=== PATIENT | male | born 1950 | race Caucasian/White ===

== ENCOUNTER → 2019-01-05 | Outpatient (CLI) | payer MEDICARE, OTHER ==
--- NOTE | 2019-01-05 09:17 | ECHOF ---
Referral Reason:I10 hypertention R60.9 bilateral leg edema MEASUREMENTS -------- HEIGHT: 165.1 cm WEIGHT: 90.7 kg BP: IVSd: 1.8 cm (0.6 - 1.1) LVIDd: 4.6 cm (3.9 - 5.3) LVPWd: 1.4 cm (0.6 - 1.1) IVSs: 2.1 cm LVIDs: 2.5 cm LVPWs: 2.1 cm LAESV Index (A-L): 27.77 ml/m Ao Diam: 3.3 cm (2.0 - 3.7) AV Cusp: 2.4 cm (1.5 - 2.6) LA Diam: 2.9 cm (2.7 - 3.8) MV EXCURSION: 19.783 mm (> 18.000) MV EF SLOPE: 125 mm/s (70 - 150) EPSS: 1.2 cm MV E Jesse: 0.88 m/s MV DecT: 193 ms MV A Jesse: 1.06 m/s MV E/A Ratio: 0.84 AR PHT: 261 ms RAP: 5.00 mmHg RVSP: 9.41 mmHg FINDINGS -------- Sinus rhythm. This was a technically good study. The left ventricular size is normal. There is moderate concentric left ventricular hypertrophy. O verall left ventricular systolic function is normal with, an EF between 55 - 60 %. The right ventricle is normal in size. Normal LA size by volume 22+/-6 ml/m2. The right atrial size is normal. There is mild aortic regurgitation. The mitral valve leaflets are mildly thickened. Mild mitral annular calcification present. There is trace mitral regurgitation. Trace tricuspid regurgitation present. The right ventricular systolic pressure, as measured by Dopp ler, is 9.41mmHg. There is no pulmonic regurgitation present. The aortic root size is normal. Normal inferior vena cava with normal inspiratory collapse consistent with estimated right atrial pre ssure of 5 mmHg. There is no pericardial effusion. CONCLUSIONS -------- 1. Sinus rhythm. 2. This was a technically good study. 3. The left ventricular size is normal. 4. There is moderate concentric left ventricular hypertrophy. 5. Overall left ventricular systolic function is normal with, an EF between 55 - 60 %. 6. The right ventricle is normal in size. 7. Normal LA size by volume 22+/-6 ml/m2. 8. The right atrial size is normal. 9. There is mild aortic regurgitation. 10. The mitral valve leaflets are mildly thickened. 11. Mild mitral annular calcification present. 12. There is trace mitral regurgitation. 13. Trace tricuspid regurgitation present. 14. The right ventricular systolic pressure, as measured by Doppler, is 9.41mmHg. 15. There is no pulmonic regurgitation present. 16. The aortic root size is normal. 17. Normal inferior vena cava with normal inspiratory collapse consistent with estimated right atrial pressure of 5 mmHg. 18. There is no pericardial effusion. WOOD MOLDER: Lisa Nicholas RDCS
== END | disposition home or self-care (01) ==
LOC: RADECHMAIN 08:21
PROVIDERS: ATTEND Internal Medicine
DX: I08.0 Rheumatic disorders of both mitral and aortic valves (principal); I10 Essential (primary) hypertension
CPT/HCPCS: 93306

== ENCOUNTER → 2019-03-26 | Outpatient (CLI) | payer MEDICARE, OTHER ==
[2019-03-26 12:20] LABS: HCT 45.2 % (39.0-53.0); HGB 15.1 gm/dL (13.0-17.5); MCHC 33.3 g/dL (31.0-37.0); MCV 93.1 fL (80.0-100.0); Platelet Count 362 k/uL (150-450); RBC 4.85 m/uL (4.30-5.90); RDW 15.3 % (11.5-15.5); WBC 8.1 k/uL (3.8-10.6)
[2019-03-26 12:30] LABS: African American GFR (CKD) >90 (>60 ml/min/1.73 sqM); Anion Gap 7 mmol/L; Blood Urea Nitrogen 19 mg/dL (9-20); Carbon Dioxide 32 mmol/L (22-30); Chloride 102 mmol/L (98-107); Potassium 3.5 mmol/L (3.5-5.1); Sodium 141 mmol/L (137-145)
== END | disposition home or self-care (01) ==
LOC: LABPAT 11:38
PROVIDERS: ATTEND Internal Medicine Interventional Cardiology
DX: Z01.812 Encounter for preprocedural laboratory examination (principal)
CPT/HCPCS: 36415; 80051; 82565; 84520; 85027

== ENCOUNTER 2019-04-14 10:03 | Day surgery (SDC) | payer MEDICARE, OTHER ==
[2019-04-08 17:28] VITALS: BMI 37.0
[~2019-04-14 10:03] MED LIST: ASPIRIN 325 MG TAB PO ONE; SODIUM CHLORIDE 0.9% 1,000 ML in EMPTY BAG 1 BAG IV ONE
[2019-04-14] MEDS ORDERED: ALBUTEROL NEBULIZED 1.25 MG/3 ML INHALATION SCH (10:45)
[2019-04-14] MEDS: ALBUTEROL NEBULIZED 2.5 MG/3 ML INHALATION SCH ×2 (10:56→18:50)
[2019-04-14 10:59] VITALS: RESP 18
[2019-04-14] MEDS ORDERED: MIDAZOLAM (PF) 2 MG/2 ML VIAL IVP ONE (13:57)
[2019-04-14] MEDS ORDERED: LIDOCAINE 1% INJ 10MG/ML (20 ML MDV) SQ ONE (14:02)
[2019-04-14] MEDS: VERAPAMIL SYRINGE (5 MG/10 ML) INTRAARTER ONE ×2 (14:03→14:11)
[2019-04-14] MEDS ORDERED: HEPARIN SODIUM 1,000 UN/ML (10ML VL) IV ONE (14:04)
[2019-04-14] MEDS ORDERED: IOPAMIDOL-370 100ML BTL INJ ONE (14:11)
[2019-04-14] MEDS ORDERED: RX INFO: IV CONTRAST WAS GIVEN 1 EACH MISC MISCELLANE PRN (14:25)
[2019-04-14] MEDS ORDERED: SODIUM CHLORIDE 0.9% 1,000 ML IV SCH (14:30)
--- NOTE | 2019-04-14 15:11 | CC ---
CARDIAC CATHETERIZATION REPORT DATE OF SERVICE: 04/14/2019 PERFORMING PHYSICIAN: Wes Cha MD, Waste Water Operator. PROCEDURE PERFORMED: 1. Selective right and left coronary angiogram. 2. Left heart catheterization. INDICATION: This is a pleasant 68-year-old gentleman with history of hypertension and dyslipidemia, who was experiencing shortness of breath with exertion and underwent a myocardial perfusion imaging stress test and that revealed evidence of transient ischemic dilatation of the left ventricle. Because of that, heart catheterization was advised. APPROACH: Right radial artery. COMPLICATION: None. LEVEL OF SEDATION: Moderate with a sedation length of 13 minutes. PROCEDURE DESCRIPTION: After obtaining an informed consent, the patient was brought to the cardiac orthodontic laboratory technician. The right radial artery was cannulated using micropuncture technique, the micropuncture wire passed easily, then I placed a 6-Upper Sorbian sheath in the right radial artery. After that, I did give the patient 2 mg of verapamil IA and 10,000 units of heparin IV. Subsequently, I did selective right and left coronary angiogram using JR4 and JL3.5 catheters. Left heart catheterization was performed using pigtail catheter. The procedure was completed without any complication. SELECTIVE CORONARY ANGIOGRAM: 1. The right coronary artery is a large caliber vessel. It is a dominant vessel and appeared to be angiographically normal. It distally bifurcates into PDA and PLV branches, both appeared to be angiographically normal. 2. The left main is angiographically normal, it bifurcates into left circumflex. The left circumflex is a large caliber vessel. It is a nondominant vessel with the proximal circumflex is angiographically normal and gives rise into a large OM branch which seems to be angiographically normal. The mid circumflex is normal and gives rise into the second OM branch, appeared to be angiographically normal and the circumflex continued after that as a medium caliber vessel in the AV groove. 3. The ramus intermedius is a small to medium caliber vessel with mild luminal irregularity. 4. The LAD, the proximal LAD appeared to be angiographically normal. It gives rise into a high take-off of the diagonal branch which is a large caliber vessel and appears to be angiographically normal. The mid LAD appeared to be normal and gives rise into second diagonal branch which seems to be angiographically normal. The LAD distally appeared to be normal. The LAD in the midportion after the second diagonal branch has a lesion appeared to be in the range of 10%-20% only. HEMODYNAMICS: The left ventricular end-diastolic pressure was about 8 mmHg without significant gradient across the aortic valve. CONCLUSION: 1. 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 2. Normal left ventricular end-diastolic pressure. POSTPROCEDURE MANAGEMENT: Medical treatment and follow up with the patient. PEPE / MARKN: [id number] /
--- NOTE | 2019-04-14 15:11 | LTR ---
DATE OF SERVICE: April 14, 2019. RE: Naresh Pantera Dear Dr. Santiago; Mr. Pantera Infante underwent today a heart catheterization and that revealed mild nonobstructive disease involving the left anterior descending artery. I did recommend maximized medical treatment, aggressive cholesterol control, and followup. I want to thank you for allowing me to participate in his care and please do not hesitate to call with any question or concern. Sincerely, MD PEPE Hewitt / MARKN: [id number] /
[2019-04-14 19:34] VITALS: BP 150/77; PULSE 74; TEMP 98.1
== END 2019-04-14 19:55 | disposition home or self-care (01) ==
LOC: CATHCVL 10:03 → 1SOBS 16:07 → CATHCVL 19:55
PROVIDERS: ATTEND Internal Medicine Interventional Cardiology
DX: R94.39 Abnormal result of other cardiovascular function study (principal); R06.02 Shortness of breath; I10 Essential (primary) hypertension; E78.5 Hyperlipidemia, unspecified; E78.00 Pure hypercholesterolemia, unspecified
CPT/HCPCS: 93458; 94640 ×2; C1769 ×3; C1894; J2001; J1644; Q9967; J2250

== ENCOUNTER → 2019-11-13 | Outpatient (CLI) | payer MEDICARE, OTHER ==
--- NOTE | 2019-11-13 09:39 | MR ---
EXAMINATION TYPE: MR cervical spine wo con DATE OF EXAM ORDERED: 11/13/2019 9:16 AM HISTORY: M54.2. TECHNOLOGIST HISTORY AT TIME OF EXAM: Neck pain, weakness in extremities COMPARISON: . TECHNIQUE: Multiplanar, multiecho imaging of the cervical spine was obtained without contrast on a 1 .5 elton magnet. FINDINGS: Vertebral body height and alignment are maintained. Atlantoaxial relationships are normal. There is a normal craniocervical junction. Cord signal is normal. At C2-C3, there is mild left-sided intervertebral foraminal narrowing. There is no significant compre ssive discopathy. There is mild hypertrophic change in the left facet. The uncovertebral joints are u nremarkable At C3-C4, there is mild hypertrophic changes in the left facet. At C4-C5, there is mild disc space loss. There is bilateral intervertebral foraminal narrowing, worse on the left than the right. There is a left paracentral disc protrusion deforming the thecal sac wit h cord contact and mild posterior displacement. There is left-sided facet arthropathy and there is mi ld vertebral joint disease. At C5-C6, there is bilateral intervertebral foraminal narrowing, worse on the right than the left. Th ere is no significant compressive discopathy. There is mild facet and uncovertebral joint disease. At C6-C7, there is mild disc space loss. There is bilateral intervertebral foraminal narrowing, worse on the right than left. There is mild, diffuse disc displacement. There is mild facet and uncoverteb ral joint disease. At C7-T1, no definite abnormality is seen. IMPRESSION: 1. DIFFUSE DEGENERATIVE DISC DISEASE AND FACET ARTHROPATHY. 2. MULTILEVEL INTERVERTEBRAL FORAMINAL NARROWING. 3. LEFT PARACENTRAL DISC PROTRUSION, C4-5, WHICH MAY BE IMPINGING UPON THE EXITING NERVE ROOT ON THE LEFT
== END | disposition home or self-care (01) ==
LOC: RADMRIMAIN 08:40
PROVIDERS: ATTEND Internal Medicine
DX: M48.02 Spinal stenosis, cervical region (principal); M50.221 Other cervical disc displacement at C4-C5 level; M50.30 Other cervical disc degeneration, unspecified cervical region; M46.92 Unspecified inflammatory spondylopathy, cervical region
CPT/HCPCS: 72141

== ENCOUNTER 2021-03-24 14:01 | Inpatient (IN) | payer MEDICARE, OTHER ==
--- NOTE | 2021-03-24 14:27 | ED ---
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 He was brought in by EMS because of the symptoms. He denies any chest pain or shortness breath this time he does have a history of COPD he states when he does flush the toilet that the black stool looks more red. No other complaints or modifying factors at this time MD Complaint: abdominal pain, other - Related Data Home Medications Medication Instructions Recorded Confirmed Albuterol Nebulized [Ventolin 2.5 mg INHALATION RT-BID 03/17/19 03/24/21 Nebulized] Aspirin [Adult Low Dose Aspirin EC] 81 mg PO DAILY 03/17/19 03/24/21 Budesonide/Formoterol Fumarate 2 puff INHALATION RT-BID 03/17/19 03/24/21 [Symbicort 160-4.5 Mcg Inhaler] Calcium Carbonate [Calcium] 600 mg PO DAILY 03/17/19 03/24/21 Cholecalciferol [Vitamin D3 (25 1,000 unit PO DAILY 03/17/19 03/24/21 Mcg = 1000 Iu)] Multivitamins, Thera [Multivitamin 1 tab PO DAILY 03/17/19 03/24/21 (formulary)] [place]-3 Fatty Acids/Fish Oil [Fish 1 cap PO DAILY 03/17/19 03/24/21 Oil 1,000 mg Softgel] hydroCHLOROthiazide [Hydrodiuril] 12.5 mg PO DAILY 03/17/19 03/24/21 Atorvastatin [Lipitor] 20 mg PO HS 03/24/21 03/24/21 Meloxicam [Mobic] 15 mg PO DAILY PRN 03/24/21 03/24/21 amLODIPine [Norvasc] 10 mg PO DAILY 03/24/21 03/24/21 calcium polycarbophiL [Fibercon] 625 mg PO DAILY 03/24/21 03/24/21 Allergies Allergy/AdvReac Type Severity Reaction Status Date / Time No Known Allergies Allergy Verified 03/24/21 14:56 Review of Systems ROS Statement: Those systems with pertinent positive or pertinent negative responses have been documented in the HPI. ROS Other: All systems not noted in ROS Statement are negative. Past Medical History Past Medical History: Cancer, COPD, Hyperlipidemia, Hypertension Additional Past Medical History / Comment(s): prostate cancer History of Any Multi-Drug Resistant Organisms: None Reported Past Surgical History: Heart Catheterization, Hernia Repair Additional Past Surgical History / Comment(s): radiation on prostate, spleenectomy, unguinal blateral Past Anesthesia/Blood Transfusion Reactions: No Reported Reaction Past Psychological History: No Psychological Hx Reported Past Alcohol Use History: Occasional Past Drug Use History: Marijuana - Past Family History Father Family Medical History: Diabetes Mellitus General Exam - General Exam Comments Initial Comments: This is a well-developed well-nourished awake alert oriented 3 male Limitations: no limitations General appearance: alert, in no apparent distress Head exam: Present: atraumatic, normocephalic, normal inspection Eye exam: Present: PERRL, EOMI, other (Pale conjunctiva). Absent: scleral icterus, conjunctival injection, periorbital swelling ENT exam: Present: normal exam, mucous membranes moist Neck exam: Present: normal inspection. Absent: tenderness, meningismus, lymphadenopathy Respiratory exam: Present: normal lung sounds bilaterally. Absent: respiratory distress, wheezes, rales, rhonchi, stridor Cardiovascular Exam: Present: normal rhythm, tachycardia, normal heart sounds. Absent: systolic murmur, diastolic murmur, rubs, gallop, clicks GI/Abdominal exam: Present: soft, normal bowel sounds, other (Well-healed left- sided surgical scar). Absent: distended, tenderness, guarding, rebound, rigid Rectal exam: Present: heme (+) stool, black stool, other (No definitive masses palpated) exam: Present: normal inspection Extremities exam: Present: normal inspection, full ROM, normal capillary refill. Absent: tenderness, pedal edema, joint swelling, calf tenderness Back exam: Present: normal inspection Neurological exam: Present: alert, oriented X3, CN II-XII intact Psychiatric exam: Present: normal affect, normal mood Skin exam: Present: warm, dry, intact, pallor. Absent: rash Course Vital Signs 03/24/21 03/24/21 03/24/21 14:04 14:05 14:30 Temperature 99.5 F Pulse Rate 118 H 114 H 114 H Respiratory 22 18 22 Rate Blood Pressure 134/107 117/79 117/79 O2 Sat by Pulse 93 L 98 96 Oximetry 03/24/21 15:00 Temperature Pulse Rate 112 H Respiratory 20 Rate Blood Pressure 134/87 O2 Sat by Pulse 99 Oximetry - Reevaluation(s) Reevaluation #1: 03/24/21 14:56 Patient does admit that he does drink alcohol he does like to drink moonshine. He has not had any alcohol in at least 3 weeks Medical Decision Making - Medical Decision Making I did discuss the findings with the patient family as well as with Dr. Donald, patient will be admitted for inpatient evaluation surgery will be consulted as there is no GI available this weekend. Lactic acid elevation is mild and likely due to dehydration. No evidence of any infectious etiology. - Lab Data Result diagrams: 03/24/21 14:26 03/24/21 14:26 Lab Results 03/24/21 03/24/21 03/24/21 Range/Units 14:25 14:26 14:26 WBC 8.2 (3.8-10.6) k/uL RBC 2.62 L (4.30-5.90) m/uL Hgb 8.5 L (13.0-17.5) gm/dL Hct 24.5 L (39.0-53.0) % MCV 93.7 (80.0-100.0) fL MCH 32.3 (25.0-35.0) pg MCHC 34.5 (31.0-37.0) g/dL RDW 14.7 (11.5-15.5) % Plt Count 297 (150-450) k/uL MPV 7.0 Neutrophils % 70 % Lymphocytes % 22 % Monocytes % 5 % Eosinophils % 2 % Basophils % 1 % Neutrophils # 5.7 (1.3-7.7) k/uL Lymphocytes # 1.8 (1.0-4.8) k/uL Monocytes # 0.4 (0-1.0) k/uL Eosinophils # 0.1 (0-0.7) k/uL Basophils # 0.1 (0-0.2) k/uL Sodium (137-145) mmol/L Potassium (3.5-5.1) mmol/L Chloride (98-107) mmol/L Carbon Dioxide (22-30) mmol/L Anion Gap mmol/L BUN (9-20) mg/dL Creatinine (0.66-1.25) mg/dL Est GFR (CKD-EPI)AfAm (>60 ml/min/1.73 sqM) Est GFR (CKD-EPI)NonAf (>60 ml/min/1.73 sqM) Glucose (74-99) mg/dL Plasma Lactic Acid Josue (0.7-2.0) mmol/L Calcium (8.4-10.2) mg/dL Total Bilirubin (0.2-1.3) mg/dL AST (17-59) U/L ALT (4-49) U/L Alkaline Phosphatase (38-126) U/L Creatine Kinase (55-170) U/L Troponin I (0.000-0.034) ng/mL Total Protein (6.3-8.2) g/dL Albumin (3.5-5.0) g/dL Amylase (30-110) U/L Lipase (23-300) U/L Urine Color Yellow Urine Appearance Clear (Clear) Urine pH 6.0 (5.0-8.0) Ur Specific Sharon 1.024 (1.001-1.035) Urine Protein 1+ H (Negative) Urine Glucose (UA) Negative (Negative) Urine Ketones Negative (Negative) Urine Blood Negative (Negative) Urine Nitrite Negative (Negative) Urine Bilirubin Negative (Negative) Urine Urobilinogen <2.0 (<2.0) mg/dL Ur Leukocyte Esterase Negative (Negative) Urine RBC 5 (0-5) /hpf Urine WBC 3 (0-5) /hpf Hyaline Casts 13 H (0-2) /lpf Urine Mucus Many H (None) /hpf Stool Occult Blood (Negative) Blood Type Recheck No Previous Record Bld Type Recheck Status CABO Indicated Spec Expiration Date 03/27/2021 - 232403/24/21 03/24/21 03/24/21 Range/Units 14:26 14:26 14:26 WBC (3.8-10.6) k/uL RBC (4.30-5.90) m/uL Hgb (13.0-17.5) gm/dL Hct (39.0-53.0) % MCV (80.0-100.0) fL MCH (25.0-35.0) pg MCHC (31.0-37.0) g/dL RDW (11.5-15.5) % Plt Count (150-450) k/uL MPV Neutrophils % % Lymphocytes % % Monocytes % % Eosinophils % % Basophils % % Neutrophils # (1.3-7.7) k/uL Lymphocytes # (1.0-4.8) k/uL Monocytes # (0-1.0) k/uL Eosinophils # (0-0.7) k/uL Basophils # (0-0.2) k/uL Sodium 137 (137-145) mmol/L Potassium 3.6 (3.5-5.1) mmol/L Chloride 106 (98-107) mmol/L Carbon Dioxide 25 (22-30) mmol/L Anion Gap 6 mmol/L BUN 28 H (9-20) mg/dL Creatinine 0.93 (0.66-1.25) mg/dL Est GFR (CKD-EPI)AfAm >90 (>60 ml/min/1.73 sqM) Est GFR (CKD-EPI)NonAf 83 (>60 ml/min/1.73 sqM) Glucose 135 H (74-99) mg/dL Plasma Lactic Acid Josue 2.2 H* (0.7-2.0) mmol/L Calcium 8.6 (8.4-10.2) mg/dL Total Bilirubin 0.1 L (0.2-1.3) mg/dL AST 27 (17-59) U/L ALT 30 (4-49) U/L Alkaline Phosphatase 60 (38-126) U/L Creatine Kinase 36 L (55-170) U/L Troponin I 0.028 (0.000-0.034) ng/mL Total Protein 5.1 L (6.3-8.2) g/dL Albumin 2.7 L (3.5-5.0) g/dL Amylase 64 (30-110) U/L Lipase 42 (23-300) U/L Urine Color Urine Appearance (Clear) Urine pH (5.0-8.0) Ur Specific Sharon (1.001-1.035) Urine Protein (Negative) Urine Glucose (UA) (Negative) Urine Ketones (Negative) Urine Blood (Negative) Urine Nitrite (Negative) Urine Bilirubin (Negative) Urine Urobilinogen (<2.0) mg/dL Ur Leukocyte Esterase (Negative) Urine RBC (0-5) /hpf Urine WBC (0-5) /hpf Hyaline Casts (0-2) /lpf Urine Mucus (None) /hpf Stool Occult Blood (Negative) Blood Type Recheck Bld Type Recheck Status Spec Expiration Date 03/24/21 Range/Units 14:26 WBC (3.8-10.6) k/uL RBC (4.30-5.90) m/uL Hgb (13.0-17.5) gm/dL Hct (39.0-53.0) % MCV (80.0-100.0) fL MCH (25.0-35.0) pg MCHC (31.0-37.0) g/dL RDW (11.5-15.5) % Plt Count (150-450) k/uL MPV Neutrophils % % Lymphocytes % % Monocytes % % Eosinophils % % Basophils % % Neutrophils # (1.3-7.7) k/uL Lymphocytes # (1.0-4.8) k/uL Monocytes # (0-1.0) k/uL Eosinophils # (0-0.7) k/uL Basophils # (0-0.2) k/uL Sodium (137-145) mmol/L Potassium (3.5-5.1) mmol/L Chloride (98-107) mmol/L Carbon Dioxide (22-30) mmol/L Anion Gap mmol/L BUN (9-20) mg/dL Creatinine (0.66-1.25) mg/dL Est GFR (CKD-EPI)AfAm (>60 ml/min/1.73 sqM) Est GFR (CKD-EPI)NonAf (>60 ml/min/1.73 sqM) Glucose (74-99) mg/dL Plasma Lactic Acid Josue (0.7-2.0) mmol/L Calcium (8.4-10.2) mg/dL Total Bilirubin (0.2-1.3) mg/dL AST (17-59) U/L ALT (4-49) U/L Alkaline Phosphatase (38-126) U/L Creatine Kinase (55-170) U/L Troponin I (0.000-0.034) ng/mL Total Protein (6.3-8.2) g/dL Albumin (3.5-5.0) g/dL Amylase (30-110) U/L Lipase (23-300) U/L Urine Color Urine Appearance (Clear) Urine pH (5.0-8.0) Ur Specific Sharon (1.001-1.035) Urine Protein (Negative) Urine Glucose (UA) (Negative) Urine Ketones (Negative) Urine Blood (Negative) Urine Nitrite (Negative) Urine Bilirubin (Negative) Urine Urobilinogen (<2.0) mg/dL Ur Leukocyte Esterase (Negative) Urine RBC (0-5) /hpf Urine WBC (0-5) /hpf Hyaline Casts (0-2) /lpf Urine Mucus (None) /hpf Stool Occult Blood Positive (Negative) Blood Type Recheck Bld Type Recheck Status Spec Expiration Date - Radiology Data Radiology results: report reviewed (Imaging reviewed no acute findings), image reviewed Disposition Clinical Impression: Upper GI bleed, Dehydration, Anemia, Tachycardia Disposition: ADMITTED IP TO THIS [facility] Condition: Fair Referrals: Lorne Washington MD [Primary Care Provider] - 1-2 days
[2021-03-24 14:36] LABS: Basophils # (A) 0.1 k/uL (0-0.2); Basophils % (A) 1 %; Eosinophils # (A) 0.1 k/uL (0-0.7); Eosinophils % (A) 2 %; HCT 24.5 % (39.0-53.0); HGB 8.5 gm/dL (13.0-17.5); Lymphocytes # (A) 1.8 k/uL (1.0-4.8); Lymphocytes % (A) 22 %; MCH 32.3 pg (25.0-35.0); MCHC 34.5 g/dL (31.0-37.0); MCV 93.7 fL (80.0-100.0); Monocytes # (A) 0.4 k/uL (0-1.0); Monocytes % (A) 5 %; Neutrophils # (A) 5.7 k/uL (1.3-7.7); Neutrophils % (A) 70 %; Platelet Count 297 k/uL (150-450); RBC 2.62 m/uL (4.30-5.90); RDW 14.7 % (11.5-15.5); WBC 8.2 k/uL (3.8-10.6)
[2021-03-24 14:49] LABS: ALT 30 U/L (4-49); AST 27 U/L (17-59); African American GFR (CKD) >90 (>60 ml/min/1.73 sqM); Albumin 2.7 g/dL (3.5-5.0); Alkaline Phosphatase 60 U/L (38-126); Amylase 64 U/L (30-110); Anion Gap 6 mmol/L; Blood Urea Nitrogen 28 mg/dL (9-20); Calcium 8.6 mg/dL (8.4-10.2); Carbon Dioxide 25 mmol/L (22-30); Chloride 106 mmol/L (98-107); Creatine Kinase 36 U/L (55-170); Glucose 135 mg/dL (74-99); Lipase 42 U/L (23-300); Non-African American GFR(CKD) 83 (>60 ml/min/1.73 sqM); Potassium 3.6 mmol/L (3.5-5.1); Sodium 137 mmol/L (137-145); Total Bilirubin 0.1 mg/dL (0.2-1.3); Total Protein 5.1 g/dL (6.3-8.2)
--- NOTE | 2021-03-24 14:51 | XR ---
EXAMINATION TYPE: XR KUB DATE OF EXAM: 03/24/2021 COMPARISON: NONE HISTORY: Dizziness TECHNIQUE: 2 views supine FINDINGS: Bowel gas pattern is normal. There is no sign of intestinal obstruction or pneumoperitoneum . Fecal pattern is normal. There is no evidence of a mass. There are surgical clips over the pelvis. Lung bases appear clear of infiltrate. IMPRESSION: Nonacute abdomen.
--- NOTE | 2021-03-24 14:52 | XR ---
EXAMINATION TYPE: XR chest 2V DATE OF EXAM: 03/24/2021 COMPARISON: NONE HISTORY: Dizziness TECHNIQUE: 2 views FINDINGS: Heart and mediastinum are normal. Lungs are clear. Diaphragm is normal. Bony thorax is inta ct. There are chest leads. IMPRESSION: Normal chest.
[2021-03-24] MEDS ORDERED: PANTOPRAZOLE 40 MG/10 ML VIAL IVP STA (14:55)
[2021-03-24] MEDS ORDERED: SODIUM CHLORIDE 0.9% 1,000 ML IV STA (15:16)
[2021-03-24 15:23] LABS: Appearance,Urine Clear (Clear); Bilirubin,Urine Negative (Negative); Blood,Urine Negative (Negative); Color,Urine Yellow; Glucose,Urine (UA) Negative (Negative); Hyaline Casts,Urine 13 /lpf (0-2); Ketones,Urine Negative (Negative); Leukocyte Esterase,Urine Negative (Negative); Mucus,Urine Many /hpf; Nitrite,Urine Negative (Negative); Protein,Urine 1+ (Negative); RBC,Urine 5 /hpf (0-5); Specific Gravity,Urine 1.024 (1.001-1.035); Urobilinogen,Urine <2.0 mg/dL (<2.0); WBC,Urine 3 /hpf (0-5)
[2021-03-24] MEDS ORDERED: NALOXONE 0.4 MG/ML 1 ML VIAL IV PRN (15:31)
[2021-03-24] MEDS ORDERED: ONDANSETRON 4 MG/2 ML VIAL IVP PRN (15:31)
[2021-03-24 15:36] LABS: INR 0.9 (<1.2)
[2021-03-24 15:42] LABS: Partial Thromboplastin Time 16.1 sec (22.0-30.0)
[2021-03-24] MEDS: SODIUM CHLORIDE 0.9% 1,000 ML IV SCH ×2 (17:59→23:29)
--- NOTE | 2021-03-24 19:10 | P.GSCN ---
History of Present Illness Consult date: 03/24/21 Reason for Consult: Anemia, GI bleeding History of present illness: The patient is a 70-year-old man who began having was woken up from sleep on with multiple episodes of "diarrhea ". He flushed he noticed blood. He had some tarry stools yesterday, none today. He was feeling weak and lightheaded so came into the emergency room and was noted to be very anemic with heme positive stools. The patient denies any history of ulcer disease. He has had colonoscopies in the past, last one may have been 5 years ago. He denies any history of colon polyps or being told he had diverticulosis. No family history of GI malignancy or inflammatory bowel disease. Review of Systems All systems: negative Past Medical History Past Medical History: Cancer, COPD, Hyperlipidemia, Hypertension Additional Past Medical History / Comment(s): prostate cancer History of Any Multi-Drug Resistant Organisms: None Reported Past Surgical History: Heart Catheterization, Hernia Repair Additional Past Surgical History / Comment(s): radiation on prostate, spleen ectomy, unguinal blateral Past Anesthesia/Blood Transfusion Reactions: No Reported Reaction Past Psychological History: No Psychological Hx Reported Smoking Status: Former smoker Past Alcohol Use History: Occasional Past Drug Use History: Marijuana Additional Drug Use History / Comment(s): CURRENT MARIJUANA USE - Past Family History Father Family Medical History: Diabetes Mellitus Medications and Allergies Home Medications Medication Instructions Recorded Confirmed Type Albuterol Nebulized [Ventolin 2.5 mg INHALATION RT-BID 03/17/19 03/24/21 History Nebulized] Aspirin [Adult Low Dose Aspirin EC] 81 mg PO DAILY 03/17/19 03/24/21 History Budesonide/Formoterol Fumarate 2 puff INHALATION RT-BID 03/17/19 03/24/21 History [Symbicort 160-4.5 Mcg Inhaler] Calcium Carbonate [Calcium] 600 mg PO DAILY 03/17/19 03/24/21 History Cholecalciferol [Vitamin D3 (25 1,000 unit PO DAILY 03/17/19 03/24/21 History Mcg = 1000 Iu)] Multivitamins, Thera [Multivitamin 1 tab PO DAILY 03/17/19 03/24/21 History (formulary)] [place]-3 Fatty Acids/Fish Oil [Fish 1 cap PO DAILY 03/17/19 03/24/21 History Oil 1,000 mg Softgel] hydroCHLOROthiazide [Hydrodiuril] 12.5 mg PO DAILY 03/17/19 03/24/21 History Atorvastatin [Lipitor] 20 mg PO HS 03/24/21 03/24/21 History Meloxicam [Mobic] 15 mg PO DAILY PRN 03/24/21 03/24/21 History amLODIPine [Norvasc] 10 mg PO DAILY 03/24/21 03/24/21 History calcium polycarbophiL [Fibercon] 625 mg PO DAILY 03/24/21 03/24/21 History Allergies Allergy/AdvReac Type Severity Reaction Status Date / Time No Known Allergies Allergy Verified 03/24/21 14:56 Surgical - Exam Osteopathic Statement: *. No significant issues noted on an osteopathic structural exam other than those noted in the History and Physical/Consult. Vital Signs Pulse Resp BP Pulse Ox 118 H 22 134/107 93 L 03/24/21 14:04 03/24/21 14:04 03/24/21 14:04 03/24/21 14:04 - General appears pale well developed, well nourished, no distress - Eyes normal ocular movement - Neck trachea midline - Respiratory normal expansion, clear to auscultation - Cardiovascular Rhythm: regular - Abdomen Abdomen: soft, non tender, bowel sounds, no rebound Hernia: no umbilical - Psychiatric oriented to time, oriented to person, oriented to place, speech is normal, memory intact Results - Labs 03/24/21 14:26 03/24/21 14:26 Abnormal Lab Results - Last 24 Hours (Table) 03/24/21 03/24/21 03/24/21 Range/Units 14:26 14:26 14:26 RBC 2.62 L (4.30-5.90) m/uL Hgb 8.5 L (13.0-17.5) gm/dL Hct 24.5 L (39.0-53.0) % APTT (22.0-30.0) sec BUN 28 H (9-20) mg/dL Glucose 135 H (74-99) mg/dL Plasma Lactic Acid Josue (0.7-2.0) mmol/L Total Bilirubin 0.1 L (0.2-1.3) mg/dL Creatine Kinase 36 L (55-170) U/L Total Protein 5.1 L (6.3-8.2) g/dL Albumin 2.7 L (3.5-5.0) g/dL Urine Protein 1+ H (Negative) Hyaline Casts 13 H (0-2) /lpf Urine Mucus Many H (None) /hpf 03/24/21 03/24/21 Range/Units 14:26 15:19 RBC (4.30-5.90) m/uL Hgb (13.0-17.5) gm/dL Hct (39.0-53.0) % APTT 16.1 L (22.0-30.0) sec BUN (9-20) mg/dL Glucose (74-99) mg/dL Plasma Lactic Acid Josue 2.2 H* (0.7-2.0) mmol/L Total Bilirubin (0.2-1.3) mg/dL Creatine Kinase (55-170) U/L Total Protein (6.3-8.2) g/dL Albumin (3.5-5.0) g/dL Urine Protein (Negative) Hyaline Casts (0-2) /lpf Urine Mucus (None) /hpf Diabetes panel 03/24/21 Range/Units 14:26 Sodium 137 (137-145) mmol/L Potassium 3.6 (3.5-5.1) mmol/L Chloride 106 (98-107) mmol/L Carbon Dioxide 25 (22-30) mmol/L BUN 28 H (9-20) mg/dL Creatinine 0.93 (0.66-1.25) mg/dL Glucose 135 H (74-99) mg/dL Calcium 8.6 (8.4-10.2) mg/dL AST 27 (17-59) U/L ALT 30 (4-49) U/L Alkaline Phosphatase 60 (38-126) U/L Total Protein 5.1 L (6.3-8.2) g/dL Albumin 2.7 L (3.5-5.0) g/dL Calcium panel 03/24/21 Range/Units 14:26 Calcium 8.6 (8.4-10.2) mg/dL Albumin 2.7 L (3.5-5.0) g/dL Pituitary panel 03/24/21 Range/Units 14:26 Sodium 137 (137-145) mmol/L Potassium 3.6 (3.5-5.1) mmol/L Chloride 106 (98-107) mmol/L Carbon Dioxide 25 (22-30) mmol/L BUN 28 H (9-20) mg/dL Creatinine 0.93 (0.66-1.25) mg/dL Glucose 135 H (74-99) mg/dL Calcium 8.6 (8.4-10.2) mg/dL Adrenal panel 03/24/21 Range/Units 14:26 Sodium 137 (137-145) mmol/L Potassium 3.6 (3.5-5.1) mmol/L Chloride 106 (98-107) mmol/L Carbon Dioxide 25 (22-30) mmol/L BUN 28 H (9-20) mg/dL Creatinine 0.93 (0.66-1.25) mg/dL Glucose 135 H (74-99) mg/dL Calcium 8.6 (8.4-10.2) mg/dL Total Bilirubin 0.1 L (0.2-1.3) mg/dL AST 27 (17-59) U/L ALT 30 (4-49) U/L Alkaline Phosphatase 60 (38-126) U/L Total Protein 5.1 L (6.3-8.2) g/dL Albumin 2.7 L (3.5-5.0) g/dL Assessment and Plan (1) Anemia Current Visit: Yes Status: Acute Code(s): D64.9 - ANEMIA, UNSPECIFIED SNOMED Code(s): 110263529 (2) Dehydration Current Visit: Yes Status: Acute Code(s): E86.0 - DEHYDRATION SNOMED Code(s): 51495423 (3) Tachycardia Current Visit: Yes Status: Acute Code(s): R00.0 - TACHYCARDIA, UNSPECIFIED SNOMED Code(s): 0297632 (4) GI bleed Current Visit: Yes Status: Acute Code(s): K92.2 - GASTROINTESTINAL HEMORRHAGE, UNSPECIFIED SNOMED Code(s): 08179480 Plan: Based on his history he likely has upper GI bleeding from a ulcer. No signs of active bleeding at this time. He is admitted with serial H&H. Proton pump inhibitor. Recommended an EGD in the morning. The procedure, risk and complications were discussed. Questions were encouraged and answered. If there is no evidence of upper GI source, he can be prepped for colonoscopy. Further recommendations to follow.
[2021-03-24] MEDS: ALBUTEROL NEBULIZED 2.5 MG/3 ML INHALATION SCH (19:53)
[2021-03-24] MEDS: SYMBICORT 160-4.5 MCG INHALER INHALATION SCH (19:54)
[2021-03-24] MEDS: PANTOPRAZOLE 40 MG/10 ML VIAL IV SCH (20:25)
[2021-03-24 21:06] LABS: MCH 32.8 pg (25.0-35.0); MCHC 34.1 g/dL (31.0-37.0); MCV 96.3 fL (80.0-100.0); Platelet Count 306 k/uL (150-450); RBC 1.86 m/uL (4.30-5.90); RDW 15.2 % (11.5-15.5); WBC 11.2 k/uL (3.8-10.6)
[2021-03-24 21:13] LABS: HCT 17.9 % (39.0-53.0)
[2021-03-24 21:14] LABS: HGB 6.1 gm/dL (13.0-17.5)
--- NOTE | 2021-03-24 22:19 | P.HPIM ---
History of Present Illness H&P Date: 03/24/21 Chief Complaint: Dark colored stool for 2 weeks Mr. Infante is a 70-year-old male with a past medical history of prostate cancer, COPD, hypertension, hyperlipidemia coming in the hospital with a chief complaint of dark-colored stool. Patient states that he has been having dark- colored stool for more than 2 weeks with decreased appetite. He was also complaining of mild left-sided lower abdominal pain. He states that on evening he started to have diarrhea and noticed blood in his stools. He also complains of fatigue and lightheadedness, that brought him to the ER. Patient also mentions about drinking 4-6 beers every day for 5 days prior to this episode. He states that he moved from [place] to [place] and he has nothing to do here so started drinking. Patient denies having any nausea or vomiting. He mentions about having a colonoscopy 3 to 4 years back but does not remember the results. Patient denies being on any blood thinners. He takes daily aspirin 81 mg. Patient denied having any chest pain or palpitations. But he mentions about feeling lightheaded but never lost consciousness. Patient denies having any cough or difficulty in breathing. He denies having any dysuria or hematuria. He denies having any focal weakness in his extremities. In the ER at the time of admission is vitals temperature of 99.5, heart rate 100 s to 120s, respiratory 22, blood pressure 134/107, saturating at 98% on 2 L of oxygen and reviewing his labs white count of 8.2, hemoglobin 8.5, platelets 297. INR 0.9. Sodium 137, potassium 3.6, chloride 106, bicarb 25, BUN 28, creatinine 0.93, lactic acid 2.2 Albumin of 2.7 UA negative for nitrites and leukocyte esterase FOBT positive for blood. coronavirus PCR negative. Patient had KUB x-ray showing no acute abdominal EKG showing junctional rhythm and prolonged QT. Review of Systems CONSTITUTIONAL: No fever, no malaise, no fatigue. HEENT: No recent visual problems or hearing problems. Denied any sore throat. CARDIOVASCULAR: No chest pain or palpitations PULMONARY: No shortness of breath, no cough, no hemoptysis. GASTROINTESTINAL: As per HPI NEUROLOGICAL: No headaches, no weakness, no numbness. HEMATOLOGICAL: Denies any bleeding or petechiae. GENITOURINARY: Denies any burning micturition, frequency, or urgency. MUSCULOSKELETAL/RHEUMATOLOGICAL: Denies any joint pain, swelling, or any muscle pain. ENDOCRINE: Denies any polyuria or polydipsia. PSYC: No depression or anxiety Past Medical History Past Medical History: Cancer, COPD, Hyperlipidemia, Hypertension Additional Past Medical History / Comment(s): prostate cancer History of Any Multi-Drug Resistant Organisms: None Reported Past Surgical History: Heart Catheterization, Hernia Repair Additional Past Surgical History / Comment(s): radiation on prostate, spleenectomy, unguinal blateral Past Anesthesia/Blood Transfusion Reactions: No Reported Reaction Past Psychological History: No Psychological Hx Reported Smoking Status: Former smoker Past Alcohol Use History: Occasional Past Drug Use History: Marijuana Additional Drug Use History / Comment(s): CURRENT MARIJUANA USE - Past Family History Father Family Medical History: Diabetes Mellitus Medications and Allergies Home Medications Medication Instructions Recorded Confirmed Type Albuterol Nebulized [Ventolin 2.5 mg INHALATION RT-BID 03/17/19 03/24/21 History Nebulized] Aspirin [Adult Low Dose Aspirin EC] 81 mg PO DAILY 03/17/19 03/24/21 History Budesonide/Formoterol Fumarate 2 puff INHALATION RT-BID 03/17/19 03/24/21 History [Symbicort 160-4.5 Mcg Inhaler] Calcium Carbonate [Calcium] 600 mg PO DAILY 03/17/19 03/24/21 History Cholecalciferol [Vitamin D3 (25 1,000 unit PO DAILY 03/17/19 03/24/21 History Mcg = 1000 Iu)] Multivitamins, Thera [Multivitamin 1 tab PO DAILY 03/17/19 03/24/21 History (formulary)] [place]-3 Fatty Acids/Fish Oil [Fish 1 cap PO DAILY 03/17/19 03/24/21 History Oil 1,000 mg Softgel] hydroCHLOROthiazide [Hydrodiuril] 12.5 mg PO DAILY 03/17/19 03/24/21 History Atorvastatin [Lipitor] 20 mg PO HS 03/24/21 03/24/21 History Meloxicam [Mobic] 15 mg PO DAILY PRN 03/24/21 03/24/21 History amLODIPine [Norvasc] 10 mg PO DAILY 03/24/21 03/24/21 History calcium polycarbophiL [Fibercon] 625 mg PO DAILY 03/24/21 03/24/21 History Allergies Allergy/AdvReac Type Severity Reaction Status Date / Time No Known Allergies Allergy Verified 03/24/21 14:56 Physical Exam Vitals: Vital Signs Temp Pulse Pulse Resp BP BP Pulse Ox 03/24/21 17:10 98.4 F 104 H 18 114/58 100 03/24/21 16:50 98.5 F 100 20 114/58 100 03/24/21 16:00 106 H 18 120/86 99 03/24/21 15:30 107 H 18 114/77 100 03/24/21 15:00 112 H 20 134/87 99 03/24/21 14:30 114 H 22 117/79 96 03/24/21 14:05 99.5 F 114 H 18 117/79 98 03/24/21 14:04 118 H 22 134/107 93 L Intake and Output 03/24/21 03/24/21 03/24/21 06:59 14:59 22:59 Other: Weight 104.145 kg 104.145 kg GENERAL: The patient is alert and oriented x3, not in any acute distress. HEENT: Pupils are round and equally reacting to light. EOMI. No scleral icterus. + ve for conjunctival pallor. Normocephalic, atraumatic. No pharyngeal erythema. No thyromegaly. CARDIOVASCULAR: S1 and S2 present. No murmurs, rubs, or gallops. Tachycardia PULMONARY: Chest is clear to auscultation, no wheezing or crackles. ABDOMEN: Soft, nontender, nondistended, normoactive bowel sounds. No palpable organomegaly. MUSCULOSKELETAL: No joint swelling or deformity. EXTREMITIES: No cyanosis, clubbing, or pedal edema. NEUROLOGICAL: Gross neurological examination did not reveal any focal deficits. Results CBC & Chem 7: 03/24/21 20:19 03/24/21 14:26 Labs: Abnormal Lab Results - Last 24 Hours (Table) 03/24/21 03/24/21 03/24/21 Range/Units 14:26 14:26 14:26 RBC 2.62 L (4.30-5.90) m/uL Hgb 8.5 L (13.0-17.5) gm/dL Hct 24.5 L (39.0-53.0) % APTT (22.0-30.0) sec BUN 28 H (9-20) mg/dL Glucose 135 H (74-99) mg/dL Plasma Lactic Acid Josue (0.7-2.0) mmol/L Total Bilirubin 0.1 L (0.2-1.3) mg/dL Creatine Kinase 36 L (55-170) U/L Total Protein 5.1 L (6.3-8.2) g/dL Albumin 2.7 L (3.5-5.0) g/dL Urine Protein 1+ H (Negative) Hyaline Casts 13 H (0-2) /lpf Urine Mucus Many H (None) /hpf 03/24/21 03/24/21 Range/Units 14:26 15:19 RBC (4.30-5.90) m/uL Hgb (13.0-17.5) gm/dL Hct (39.0-53.0) % APTT 16.1 L (22.0-30.0) sec BUN (9-20) mg/dL Glucose (74-99) mg/dL Plasma Lactic Acid Josue 2.2 H* (0.7-2.0) mmol/L Total Bilirubin (0.2-1.3) mg/dL Creatine Kinase (55-170) U/L Total Protein (6.3-8.2) g/dL Albumin (3.5-5.0) g/dL Urine Protein (Negative) Hyaline Casts (0-2) /lpf Urine Mucus (None) /hpf Thrombosis Risk Factor Assmnt - Choose All That Apply Each Risk Factor Represents 2 Points: Age 61-74 years Thrombosis Risk Factor Assessment Total Risk Factor Score: 2 Thrombosis Risk Factor Assessment Level: Low Risk Assessment and Plan Assessment: ASSESSMENT Acute blood loss anemia -GI bleed Lactic acidosis secondary to above Moderate protein calorie malnutrition Hypertension Hyperlipidemia COPD Prostate cancer status post radiation therapy History of splenectomy Former smoker Current marijuana use Plan: Patient's current hemoglobin is 8.5, on reviewing his previous records in July 2020 patient's hemoglobin was around 15. Patient's FOBT is positive. He has elevated lactic acid. Continue the patient on IV fluids. Monitor H&H. If hemoglobin is less than 7, will transfuse. Continue with IV Protonix. Surgery consult has been placed for possible upper/lower endoscopies. EKG showing junctional rhythm with prolonged QT,, telemetry monitoring, patient's troponin 0 0.028. Overall prognosis is guarded. Further recommendations to follow depending on the progress of the patient.
[2021-03-25 03:46] LABS: Anisocytosis Slight; Basophils # (A) 0.1 k/uL (0-0.2); Basophils % (A) 1 %; Eosinophils # (A) 0.2 k/uL (0-0.7); Eosinophils % (A) 2 %; Lymphocytes % (A) 21 %; MCH 31.8 pg (25.0-35.0); MCHC 34.4 g/dL (31.0-37.0); MCV 92.3 fL (80.0-100.0); Mean Platelet Volume 7.2; Monocytes # (A) 0.5 k/uL (0-1.0); Monocytes % (A) 6 %; Neutrophils # (A) 6.4 k/uL (1.3-7.7); Neutrophils % (A) 69 %; Platelet Count 292 k/uL (150-450); RBC 2.15 m/uL (4.30-5.90); RDW 16.1 % (11.5-15.5); WBC 9.3 k/uL (3.8-10.6)
[2021-03-25 03:53] LABS: HGB 6.8 gm/dL (13.0-17.5)
[2021-03-25 03:54] LABS: HCT 19.8 % (39.0-53.0)
[2021-03-25] MEDS: ALBUTEROL NEBULIZED 2.5 MG/3 ML INHALATION SCH ×2 (07:07→20:30)
[2021-03-25] MEDS: SYMBICORT 160-4.5 MCG INHALER INHALATION SCH ×2 (07:07→20:30)
[2021-03-25] MEDS ORDERED: LIDOCAINE 1% INJ 10MG/ML (20 ML MDV) ONE (07:55)
[2021-03-25] MEDS ORDERED: PROPOFOL 10 MG/ML 20 ML VIAL IV ONE (07:55)
[2021-03-25] MEDS ORDERED: IV FLUID CONTINUATION 1,000 ML IV ONE (08:05)
--- NOTE | 2021-03-25 08:16 | P.PCN ---
Date of Procedure: 03/25/21 Preoperative Diagnosis: GI bleeding, blood loss anemia Postoperative Diagnosis: GI bleeding, bloodloss anemia, hiatal hernia, gastritis, mild duodenitis Procedure(s) Performed: EGD Anesthesia: MAC Surgeon: Wanda Clark Pathology: none sent Condition: stable Disposition: floor Indications for Procedure: Patient presented with GI bleeding and blood loss anemia Description of Procedure: Patient's taken to the endoscopy suite worry gastroscope was passed per mouth to the third and fourth portions of the duodenum. The pharynx is unremarkable. The esophagus is without evidence of esophagitis or mass lesion. He has a small fixed angle hernia. The stomach shows little chronic appearing gastritis in the antrum but there was no evidence of any new or old blood. No evidence of obvious ulceration. The pylorus and duodenum were without evidence of polyp, mass lesion, other mucosal abnormality. No evidence of new or old blood in the upper digestive tract. Patient tolerated the procedure without difficulty and was taken recovery room in satisfactory condition. He'll be prepped for a colonoscopy on Friday
[2021-03-25] MEDS: PANTOPRAZOLE 40 MG/10 ML VIAL IV SCH ×2 (08:51→21:33)
[2021-03-25] MEDS ORDERED: amLODIPine 10 MG TAB PO SCH (09:00)
[2021-03-25] MEDS ORDERED: hydroCHLOROthiazide 12.5 MG CAP PO SCH (09:00)
[2021-03-25] MEDS: bisacodyL 5 MG TABLET.DR PO SCH ×2 (09:48→16:59)
[2021-03-25] MEDS: SODIUM CHLORIDE 0.9% 1,000 ML IV SCH ×2 (09:48→17:19)
[2021-03-25] MEDS ORDERED: PEG 3350-NA SULF,BICARB,CL/KCL 4,000 ML BOTTLE PO ONE (10:00)
[2021-03-25 10:10] LABS: African American GFR (CKD) 99.9 (60.0-200.0); Albumin 2.9 g/dL (3.80-4.90); Albumin/Globulin Ratio 1.61 (1.60-3.17); Anion Gap 7.4 mmol/L (4.00-12.00); BUN/Creat Ratio 26.67 Ratio (12.00-20.00); Calcium 7.8 mg/dL (8.7-10.3); Carbon Dioxide 25.6 mmol/L (21.6-31.8); Globulin 1.8 g/dL (1.6-3.3); Non-African American GFR(CKD) 86.2 (60.0-200.0); Potassium 3.5 mmol/L (3.5-5.5); Total Bilirubin 0.5 mg/dL (0.3-1.2); Total Protein 4.7 g/dL (6.2-8.2)
[2021-03-25 10:13] LABS: Basophils # (A) 0.04 X 10*3/uL (0.00-0.10); Basophils % (A) 0.4 %; Eosinophils # (A) 0.32 X 10*3/uL (0.04-0.35); Eosinophils % (A) 2.8 %; Lymphocytes # (A) 2.37 X 10*3/uL (0.90-5.00); Monocytes # (A) 0.98 X 10*3/uL (0.20-1.00); Monocytes % (A) 8.7 %; Neutrophils # (A) 7.48 X 10*3/uL (1.80-7.70); Neutrophils % (A) 66.1 %
[2021-03-25 10:15] LABS: HCT 20.8 % (39.6-50.0); HGB 6.8 g/dL (13.0-17.0); MCH 31.8 pg (27.0-32.0); MCHC 32.7 g/dL (32.0-37.0); MCV 97.2 fL (80.0-97.0); Mean Platelet Volume 9.5 fL (9.5-12.2); Platelet Count 318 X 10*3/uL (140-440); RBC 2.14 X 10*6/uL (4.40-5.60); RDW 17.7 % (11.5-14.5)
--- NOTE | 2021-03-25 14:42 | P.PN ---
Subjective Progress Note Date: 03/25/21 Principal diagnosis: Acute blood loss anemia GI Bleed Mr. Infante is a 70-year-old male with a past medical history of prostate cancer, COPD, hypertension, hyperlipidemia coming in the hospital with a chief complaint of dark-colored stool. Patient states that he has been having dark- colored stool for more than 2 weeks with decreased appetite. He was also compla ining of mild left-sided lower abdominal pain. He states that on evening he started to have diarrhea and noticed blood in his stools. He also complains of fatigue and lightheadedness, that brought him to the ER. Patient also mentions about drinking 4-6 beers every day for 5 days prior to this episode. He states that he moved from [place] to [place] and he has nothing to do here so started drinking. Patient denies having any nausea or vomiting. He mentions about having a colonoscopy 3 to 4 years back but does not remember the results. Patient denies being on any blood thinners. He takes daily aspirin 81 mg. Patient denied having any chest pain or palpitations. But he mentions about feeling lightheaded but never lost consciousness. Patient denies having any cough or difficulty in breathing. He denies having any dysuria or hematuria. He denies having any focal weakness in his extremities. In the ER at the time of admission is vitals temperature of 99.5, heart rate 1 00s to 120s, respiratory 22, blood pressure 134/107, saturating at 98% on 2 L of oxygen and reviewing his labs white count of 8.2, hemoglobin 8.5, platelets 297. INR 0.9. Sodium 137, potassium 3.6, chloride 106, bicarb 25, BUN 28, creatinine 0.93, lactic acid 2.2 Albumin of 2.7 UA negative for nitrites and leukocyte esterase FOBT positive for blood. coronavirus PCR negative. Patient had KUB x-ray showing no acute abdominal EKG showing junctional rhythm and prolonged QT. On 03/25/2021- patient is lying comfortably in bed appears to be no acute distress. He just got back from upper endoscopy. Patient denies having any more diarrhea. Patient's hemoglobin dropped to 6.1 last night, he was transfused 2 units of PRBCs and this morning his repeat hemoglobin is around 6.8. Patient denies having any chest pain or palpitations. He states that he feels less tired this morning. Patient denies having any cough or difficulty breathing. No fever chills or rigors. No abdominal pain nausea or vomiting. On reviewing the vitals temperature of 98.2, heart rate between 90s to 100s, respiratory 16, blood pressure 170/70, saturating at 96% on room air. Reviewing the last of this morning white count 11.3, hemoglobin 6.8, platelets 318. Sodium 142 comfortably point, chloride 100, bicarbonate, BUN 24, creatinine 0.9. Active Medications Acetaminophen (Acetaminophen Tab 325 Mg Tab) 650 mg PO Q6HR PRN PRN Reason: Mild Pain or Fever > 100.5 Albuterol Sulfate (Albuterol Nebulized 2.5 Mg/3 Ml) 2.5 mg INHALATION RT-BID [facility] Last Admin: 03/25/21 07:07 Dose: 2.5 mg Documented by: Bisacodyl (Bisacodyl 5 Mg Tablet.Dr) 10 mg PO TID [facility] Stop: 03/25/21 22:01 Last Admin: 03/25/21 09:48 Dose: 10 mg Documented by: Budesonide/Formoterol Fumarate (Symbicort 160-4.5 Mcg Inhaler) 2 puff INHALATION RT-BID [facility] Last Admin: 03/25/21 07:07 Dose: 2 puff Documented by: Sodium Chloride (Saline 0.9%) 1,000 mls @ 130 mls/hr IV .[id number] [facility] Last Admin: 03/25/21 09:48 Dose: 130 mls/hr Documented by: Naloxone HCl (Naloxone 0.4 Mg/Ml 1 Ml Vial) 0.2 mg IV Q2M PRN PRN Reason: Opioid Reversal Ondansetron HCl (Ondansetron 4 Mg/2 Ml Vial) 4 mg IVP Q8HR PRN PRN Reason: Nausea And Vomiting Pantoprazole Sodium (Pantoprazole 40 Mg/10 Ml Vial) 40 mg IV BID [facility] Last Admin: 03/25/21 08:51 Dose: 40 mg Documented by: Objective - Vital Signs Vital signs: Vital Signs Temp 99.6 F 03/25/21 07:46 Pulse 98 03/25/21 09:32 Resp 17 03/25/21 08:32 BP 113/72 03/25/21 09:32 Pulse Ox 100 03/25/21 09:32 Intake & Output 03/24/21 03/25/21 03/25/21 18:59 06:59 18:59 Intake Total 298 310 441 Balance 298 310 441 Weight 104.145 kg Intake: IV 25 Oral 298 416 Blood Product 310 0 Rc As-1 Unit 310 [id number] Rc Pheresis As-3 Unit 0 [id number] Other: Voiding Method Toilet Urinal # Voids 2 1 # Bowel Movements 1 - Exam GENERAL: The patient is alert and oriented x3, not in any acute distress. HEENT: Pupils are round and equally reacting to light. EOMI. No scleral icterus. + ve for conjunctival pallor. Normocephalic, atraumatic. CARDIOVASCULAR: S1 and S2 present. No murmurs, rubs, or gallops. Tachycardia PULMONARY: Chest is clear to auscultation, no wheezing or crackles. ABDOMEN: Soft, nontender, nondistended, normoactive bowel sounds. No palpable organomegaly. MUSCULOSKELETAL: No joint swelling or deformity. EXTREMITIES: No cyanosis, clubbing, or pedal edema. NEUROLOGICAL: Gross neurological examination did not reveal any focal deficits. - Labs CBC & Chem 7: 03/25/21 06:19 03/25/21 03:17 Labs: Abnormal Lab Results - Last 24 Hours (Table) 03/24/21 03/24/21 03/24/21 Range/Units 14:25 14:26 14:26 WBC (3.8-10.6) k/uL RBC 2.62 L (4.30-5.90) m/uL Hgb 8.5 L (13.0-17.5) gm/dL Hct 24.5 L (39.0-53.0) % MCV (80.0-97.0) fL RDW (11.5-15.5) % Absolute Nucleated RBC (0.00-0.00) X 10*3/uL Immature Gran # (0.00-0.04) X 10*3/uL NRBC/100 WBC Diff (0.0-0.0) /100 WBCS APTT (22.0-30.0) sec BUN (9-20) mg/dL BUN/Creatinine Ratio (12.00-20.00) Ratio Glucose (74-99) mg/dL Plasma Lactic Acid Josue (0.7-2.0) mmol/L Calcium (8.7-10.3) mg/dL Total Bilirubin (0.2-1.3) mg/dL Creatine Kinase (55-170) U/L Total Protein (6.3-8.2) g/dL Albumin (3.5-5.0) g/dL Urine Protein 1+ H (Negative) Hyaline Casts 13 H (0-2) /lpf Urine Mucus Many H (None) /hpf Crossmatch See Detail 03/24/21 03/24/21 03/24/21 Range/Units 14:26 14:26 15:19 WBC (3.8-10.6) k/uL RBC (4.30-5.90) m/uL Hgb (13.0-17.5) gm/dL Hct (39.0-53.0) % MCV (80.0-97.0) fL RDW (11.5-15.5) % Absolute Nucleated RBC (0.00-0.00) X 10*3/uL Immature Gran # (0.00-0.04) X 10*3/uL NRBC/100 WBC Diff (0.0-0.0) /100 WBCS APTT 16.1 L (22.0-30.0) sec BUN 28 H (9-20) mg/dL BUN/Creatinine Ratio (12.00-20.00) Ratio Glucose 135 H (74-99) mg/dL Plasma Lactic Acid Josue 2.2 H* (0.7-2.0) mmol/L Calcium (8.7-10.3) mg/dL Total Bilirubin 0.1 L (0.2-1.3) mg/dL Creatine Kinase 36 L (55-170) U/L Total Protein 5.1 L (6.3-8.2) g/dL Albumin 2.7 L (3.5-5.0) g/dL Urine Protein (Negative) Hyaline Casts (0-2) /lpf Urine Mucus (None) /hpf Crossmatch 03/24/21 03/25/21 03/25/21 Range/Units 20:19 03:17 03:17 WBC 11.2 H (3.8-10.6) k/uL RBC 1.86 L 2.15 L (4.30-5.90) m/uL Hgb 6.1 L* D 6.8 L* (13.0-17.5) gm/dL Hct 17.9 L* 19.8 L* (39.0-53.0) % MCV (80.0-97.0) fL RDW 16.1 H (11.5-15.5) % Absolute Nucleated RBC (0.00-0.00) X 10*3/uL Immature Gran # (0.00-0.04) X 10*3/uL NRBC/100 WBC Diff (0.0-0.0) /100 WBCS APTT (22.0-30.0) sec BUN (9-20) mg/dL BUN/Creatinine Ratio 26.67 H (12.00-20.00) Ratio Glucose 123 H (74-99) mg/dL Plasma Lactic Acid Josue (0.7-2.0) mmol/L Calcium 7.8 L (8.7-10.3) mg/dL Total Bilirubin (0.2-1.3) mg/dL Creatine Kinase (55-170) U/L Total Protein 4.7 L (6.3-8.2) g/dL Albumin 2.90 L (3.5-5.0) g/dL Urine Protein (Negative) Hyaline Casts (0-2) /lpf Urine Mucus (None) /hpf Crossmatch 03/25/21 Range/Units 06:19 WBC 11.30 H (3.8-10.6) k/uL RBC 2.14 L (4.30-5.90) m/uL Hgb 6.8 L* (13.0-17.5) gm/dL Hct 20.8 L (39.0-53.0) % MCV 97.2 H (80.0-97.0) fL RDW 17.7 H (11.5-15.5) % Absolute Nucleated RBC 0.12 H (0.00-0.00) X 10*3/uL Immature Gran # 0.11 H (0.00-0.04) X 10*3/uL NRBC/100 WBC Diff 1.1 H (0.0-0.0) /100 WBCS APTT (22.0-30.0) sec BUN (9-20) mg/dL BUN/Creatinine Ratio (12.00-20.00) Ratio Glucose (74-99) mg/dL Plasma Lactic Acid Josue (0.7-2.0) mmol/L Calcium (8.7-10.3) mg/dL Total Bilirubin (0.2-1.3) mg/dL Creatine Kinase (55-170) U/L Total Protein (6.3-8.2) g/dL Albumin (3.5-5.0) g/dL Urine Protein (Negative) Hyaline Casts (0-2) /lpf Urine Mucus (None) /hpf Crossmatch Assessment and Plan Assessment: ASSESSMENT Acute blood loss anemia -GI bleed Lactic acidosis secondary to above Moderate protein calorie malnutrition Hypertension Hyperlipidemia COPD Prostate cancer status post radiation therapy History of splenectomy Former smoker Current marijuana use Plan: Patient's hemoglobin dropped to 6.1 yesterday, he was transfused with 2 units of PRBCs and this morning his hemoglobin is at 6.8. Patient had an upper endoscopy done by Dr. Clark , this morning and it did show chronic appearing gastritis in the antrum but no evidence of new or old blood. There was no evidence of 4+ ulceration. He is being scheduled for colonoscopy and being prepped tonight. Continue with PPI. Overall prognosis is guarded. Further recommendations to follow depending on the progress of the patient.
[2021-03-25] MEDS: amLODIPine 10 MG TAB PO SCH (17:00)
[2021-03-25 20:37] LABS: Anisocytosis Slight; Basophils # (A) 0.1 k/uL (0-0.2); Basophils % (A) 1 %; Eosinophils # (A) 0.3 k/uL (0-0.7); Eosinophils % (A) 2 %; HCT 23.1 % (39.0-53.0); HGB 7.6 gm/dL (13.0-17.5); Lymphocytes % (A) 17 %; MCH 30.5 pg (25.0-35.0); MCHC 32.8 g/dL (31.0-37.0); Monocytes # (A) 0.5 k/uL (0-1.0); Monocytes % (A) 4 %; Neutrophils # (A) 9.1 k/uL (1.3-7.7); Neutrophils % (A) 75 %; Platelet Count 367 k/uL (150-450); Poikilocytosis Slight; RBC 2.48 m/uL (4.30-5.90); WBC 12.2 k/uL (3.8-10.6)
[2021-03-26] MEDS: bisacodyL 5 MG TABLET.DR PO SCH (00:33)
[2021-03-26] MEDS: ACETAMINOPHEN TAB 325 MG TAB PO PRN (01:33)
[2021-03-26] MEDS: SODIUM CHLORIDE 0.9% 1,000 ML IV SCH ×3 (01:35→14:44)
[2021-03-26 03:13] LABS: Appearance,Urine Clear (Clear); Color,Urine Light Yellow
[2021-03-26 03:14] LABS: Bilirubin,Urine Negative (Negative); Glucose,Urine (UA) Negative (Negative); Ketones,Urine Negative (Negative); Protein,Urine Negative (Negative)
[2021-03-26 03:15] LABS: Blood,Urine Negative (Negative); Leukocyte Esterase,Urine Negative (Negative); Nitrite,Urine Negative (Negative); Urobilinogen,Urine <2.0 mg/dL (<2.0)
[2021-03-26] MEDS: ALBUTEROL NEBULIZED 2.5 MG/3 ML INHALATION SCH ×3 (08:05→19:21)
[2021-03-26] MEDS: SYMBICORT 160-4.5 MCG INHALER INHALATION SCH ×2 (08:05→19:22)
[2021-03-26] MEDS: amLODIPine 10 MG TAB PO SCH (08:40)
[2021-03-26] MEDS: PANTOPRAZOLE 40 MG/10 ML VIAL IV SCH ×2 (08:40→20:48)
[2021-03-26 08:49] LABS: Basophils # (A) 0.05 X 10*3/uL (0.00-0.10); Basophils % (A) 0.4 %; Eosinophils # (A) 0.33 X 10*3/uL (0.04-0.35); Eosinophils % (A) 2.7 %; HCT 22.2 % (39.6-50.0); HGB 7.4 g/dL (13.0-17.0); Lymphocytes # (A) 2.48 X 10*3/uL (0.90-5.00); Lymphocytes % (A) 20.2 %; MCH 31.5 pg (27.0-32.0); MCHC 33.3 g/dL (32.0-37.0); MCV 94.5 fL (80.0-97.0); Mean Platelet Volume 9.3 fL (9.5-12.2); Monocytes # (A) 0.88 X 10*3/uL (0.20-1.00); Monocytes % (A) 7.2 %; Neutrophils # (A) 8.46 X 10*3/uL (1.80-7.70); Neutrophils % (A) 68.8 %; Platelet Count 371 X 10*3/uL (140-440); RBC 2.35 X 10*6/uL (4.40-5.60); RDW 18.8 % (11.5-14.5); WBC 12.28 X 10*3/uL (4.50-10.00)
[2021-03-26 09:25] LABS: African American GFR (CKD) 110.8 (60.0-200.0); Anion Gap 7.6 mmol/L (4.00-12.00); BUN/Creat Ratio 11.43 Ratio (12.00-20.00); Calcium 7.5 mg/dL (8.7-10.3); Carbon Dioxide 23.4 mmol/L (21.6-31.8); Non-African American GFR(CKD) 95.6 (60.0-200.0); Potassium 3.2 mmol/L (3.5-5.5)
[2021-03-26] MEDS ORDERED: IV FLUID CONTINUATION 1,000 ML IV ONE (13:02)
[2021-03-26] MEDS ORDERED: PROPOFOL 10 MG/ML 20 ML VIAL IV ONE (13:05)
--- NOTE | 2021-03-26 13:39 | P.PCN ---
Date of Procedure: 03/26/21 Preoperative Diagnosis: GI bleeding, blood loss anemia Postoperative Diagnosis: GI bleeding, blood loss anemia, diverticulosis, colon polyps Procedure(s) Performed: Colonoscopy with polypectomy Anesthesia: MAC Surgeon: Wanda Clark Estimated Blood Loss (ml): 0 Pathology: other Condition: stable Disposition: PACU Indications for Procedure: Patient presented with acute blood loss anemia and GI bleeding. EGD yesterday was unremarkable Description of Procedure: Patient's taken to the endoscopy suite where colonoscope is passed per rectum to the cecum. There is a fair prep there is some thick. Liquidy material which could not be aspirated, therefore a small polyp could have been missed. There is diverticulosis noted primarily in the sigmoid colon. No evidence of active bleeding or clot at any of the diverticular orifice'. He had 36 polyps that were 5 mm or smaller in size when the mid transverse and one in the distal transverse and one at 40 cm. These are removed with hot biopsy forceps the colon is otherwise without evidence of mass lesion, ulcer, stricture or other mucosal abnormality. No evidence of new or old blood. He tolerated the procedure without difficulty and is taken recovery room in satisfactory condition this was likely a diverticular bleed. He'll be started on a diet and if he is hemodynamically stable he would be stable for discharge tomorrow. We will call with the report of the polypectomy and let him know what his follow-up colonoscopy were recommendations are. Likely repeat colonoscopy in 5 years
[2021-03-26] MEDS ORDERED: AZITHROMYCIN 500 MG in SODIUM CHLORIDE 0.9% 250 ML IVPB SCH (14:00)
--- NOTE | 2021-03-26 17:40 | P.PN ---
Subjective Progress Note Date: 03/26/21 Principal diagnosis: Acute blood loss anemia GI Bleed Mr. Infante is a 70-year-old male with a past medical history of prostate cancer, COPD, hypertension, hyperlipidemia coming in the hospital with a chief complaint of dark-colored stool. Patient states that he has been having dark- colored stool for more than 2 weeks with decreased appetite. He was also compla ining of mild left-sided lower abdominal pain. He states that on evening he started to have diarrhea and noticed blood in his stools. He also complains of fatigue and lightheadedness, that brought him to the ER. Patient also mentions about drinking 4-6 beers every day for 5 days prior to this episode. He states that he moved from [place] to [place] and he has nothing to do here so started drinking. Patient denies having any nausea or vomiting. He mentions about having a colonoscopy 3 to 4 years back but does not remember the results. Patient denies being on any blood thinners. He takes daily aspirin 81 mg. Patient denied having any chest pain or palpitations. But he mentions about feeling lightheaded but never lost consciousness. Patient denies having any cough or difficulty in breathing. He denies having any dysuria or hematuria. He denies having any focal weakness in his extremities. In the ER at the time of admission is vitals temperature of 99.5, heart rate 1 00s to 120s, respiratory 22, blood pressure 134/107, saturating at 98% on 2 L of oxygen and reviewing his labs white count of 8.2, hemoglobin 8.5, platelets 297. INR 0.9. Sodium 137, potassium 3.6, chloride 106, bicarb 25, BUN 28, creatinine 0.93, lactic acid 2.2 Albumin of 2.7 UA negative for nitrites and leukocyte esterase FOBT positive for blood. coronavirus PCR negative. Patient had KUB x-ray showing no acute abdominal EKG showing junctional rhythm and prolonged QT. On 03/25/2021- patient is lying comfortably in bed appears to be no acute distress. He just got back from upper endoscopy. Patient denies having any more diarrhea. Patient's hemoglobin dropped to 6.1 last night, he was transfused 2 units of PRBCs and this morning his repeat hemoglobin is around 6.8. Patient denies having any chest pain or palpitations. He states that he feels less tired this morning. Patient denies having any cough or difficulty breathing. No fever chills or rigors. No abdominal pain nausea or vomiting. On reviewing the vitals temperature of 98.2, heart rate between 90s to 100s, respiratory 16, blood pressure 170/70, saturating at 96% on room air. Reviewing the last of this morning white count 11.3, hemoglobin 6.8, platelets 318. Sodium 142 comfortably point, chloride 100, bicarbonate, BUN 24, creatinine 0.9. On 03/26/2021 - patient is lying in bed appears to be no acute distress. He is scheduled for a colonoscopy and states that he is hungry as he is nothing by [facility] for the procedure. Patient denies having any chest pain or palpitations. He states that his difficulty in breathing is mild. Denies having any cough. No abdominal pain nausea vomiting and no bleeding in his stool. Patient did not have a bowel movement since admission. Patient denies having any dysuria or hematuria. On reviewing the vitals temperature 98.6, heart rate between 90s to 110s, respiratory rate 18, blood pressure 108/63, saturating at 91% on 2 L of oxygen. On reviewing the last from this morning white count of 12.2, hemoglobin 7.4, platelets 371. Sodium 140, potassium 3.2, chloride 109, bicarbonate 23, BUN 8, creatinine 0.7. Reviewed patient's medications- Tylenol, albuterol, Norvasc, azithromycin, Symbicort, ceftriaxone, Narcan, Protonix Objective - Vital Signs Vital signs: Vital Signs Temp 98.3 F 03/26/21 07:00 Pulse 108 H 03/26/21 12:22 Resp 18 03/26/21 07:00 BP 161/81 03/26/21 07:00 Pulse Ox 96 03/26/21 07:00 Intake & Output 03/25/21 03/26/21 03/26/21 18:59 06:59 18:59 Intake Total 621 180 Output Total 2100 300 Balance 621 -2100 -120 Intake: IV 25 Oral 596 180 Blood Product 0 Rc Pheresis As-3 Unit 0 [id number] Output: Urine 2100 300 Other: Voiding Method Toilet Toilet Urinal Urinal # Voids 1 1 # Bowel Movements 1 2 - Exam GENERAL: The patient is alert and oriented x3, not in any acute distress. HEENT: Pupils are round and equally reacting to light. EOMI. No scleral icterus. + ve for conjunctival pallor. Normocephalic, atraumatic. CARDIOVASCULAR: S1 and S2 present. No murmurs, rubs, or gallops. Tachycardia PULMONARY: Chest is clear to auscultation, diminished lower lung bases ABDOMEN: Soft, nontender, nondistended, normoactive bowel sounds. No palpable organomegaly. MUSCULOSKELETAL: No joint swelling or deformity. EXTREMITIES: No cyanosis, clubbing, or pedal edema. NEUROLOGICAL: Gross neurological examination did not reveal any focal deficits. - Labs CBC & Chem 7: 03/26/21 06:01 03/26/21 06:01 Labs: Abnormal Lab Results - Last 24 Hours (Table) 03/25/21 03/26/21 03/26/21 Range/Units 20:07 06:01 06:01 WBC 12.2 H 12.28 H (3.8-10.6) k/uL RBC 2.48 L 2.35 L (4.30-5.90) m/uL Hgb 7.6 L 7.4 L (13.0-17.5) gm/dL Hct 23.1 L 22.2 L (39.0-53.0) % RDW 18.0 H 18.8 H (11.5-15.5) % MPV 9.3 L (9.5-12.2) fL Absolute Nucleated RBC 0.18 H (0.00-0.00) X 10*3/uL Immature Gran # 0.08 H (0.00-0.04) X 10*3/uL Neutrophils # 9.1 H 8.46 H (1.3-7.7) k/uL NRBC/100 WBC Diff 1.5 H (0.0-0.0) /100 WBCS Potassium 3.2 L (3.5-5.5) mmol/L BUN 8.0 L (9.0-27.0) mg/dL BUN/Creatinine Ratio 11.43 L (12.00-20.00) Ratio Glucose 118 H (70-110) mg/dL Calcium 7.5 L (8.7-10.3) mg/dL Assessment and Plan Assessment: ASSESSMENT Acute blood loss anemia -GI bleed Lactic acidosis secondary to above Moderate protein calorie malnutrition Junctional rhythm Hypertension Hyperlipidemia COPD Prostate cancer status post radiation therapy History of splenectomy Former smoker Current marijuana use Plan: Patient was transfused with 2 units of PRBCs and this morning his hemoglobin is stable around 7 . Patient had an upper endoscopy done by Dr. Clark , yesterday and it did show chronic appearing gastritis in the antrum but no evidence of new or old blood. Patient had a colonoscopy done this morning pending results. As the patient has low-grade fever, T-max of 100.4 at 2 AM this morning , we'll initiate septic workup. Blood cultures, chest x-ray, urine analysis ordered. Continue with PPI. Cardiology will be consulted as the patient started is between 90-110's with junctional rhythm Overall prognosis is guarded. Further recommendations to follow depending on the progress of the patient.
--- NOTE | 2021-03-26 18:54 | XR ---
EXAMINATION TYPE: XR chest 2V DATE OF EXAM: 03/26/2021 COMPARISON: 03/24/2021 INDICATION: Short of breath TECHNIQUE: Frontal and lateral views of the chest are obtained. FINDINGS: The heart size is normal. The pulmonary vasculature is normal. The lungs are clear. IMPRESSION: 1. No acute pulmonary process.
[2021-03-27] MEDS: metroNIDAZOLE-NS PMX 500 MG in SALINE 1 100ML.BAG IVPB SCH ×3 (01:07→16:52)
[2021-03-27] MEDS: SODIUM CHLORIDE 0.9% 1,000 ML IV SCH ×2 (01:08→13:38)
[2021-03-27] MEDS: ACETAMINOPHEN TAB 325 MG TAB PO PRN (02:05)
[2021-03-27] MEDS: SYMBICORT 160-4.5 MCG INHALER INHALATION SCH ×2 (08:04→19:20)
[2021-03-27] MEDS: ALBUTEROL NEBULIZED 2.5 MG/3 ML INHALATION SCH ×2 (08:04→19:19)
[2021-03-27] MEDS: amLODIPine 10 MG TAB PO SCH (08:16)
[2021-03-27] MEDS: PANTOPRAZOLE 40 MG/10 ML VIAL IV SCH ×2 (08:16→20:22)
--- NOTE | 2021-03-27 08:41 | CONS ---
CONSULTATION Mr. Infante is a 70-year-old male with a history of chronic obstructive lung disease, history of hypertension and hyperlipidemia who presented to the emergency room with symptoms of acute GI bleeding. Cardiology consultation was requested because of tachycardia. The patient denies any symptoms of chest discomfort. He has dyspnea on exertion related to his chronic obstructive lung disease. He has been feeling some palpitations with activity. He has no history of PND or orthopnea. No peripheral edema. He has no syncope. He has a history of hypertension, hyperlipidemia, as noted as well history of alcohol intake. He noted dark colored stool on presentation and decreased appetite. On the EKG that was performed yesterday, it appears that he is in sinus tachycardia, rate of [address]-segment changes. On the monitor today he is in sinus mechanism. The patient denies any prior documented history of coronary artery disease. According to him, he has been seen by area captain here in town and underwent full cardiac workup that was unremarkable. Details of that are not available to me. He underwent colonoscopy yesterday and was found to have diverticulosis and colon polyps. His coronary risk factors are remarkable for prior history of smoking, history of hypertension and hyperlipidemia. He is nondiabetic. MEDICATIONS: HydroDIURIL 12.5 mg daily, amlodipine 10 mg daily, Lipitor 20 mg daily, aspirin, Ventolin, Symbicort, FiberCon, fish oil, multivitamin, and Mobic. REVIEW OF SYSTEMS: RESPIRATORY SYSTEM: He has dyspnea on exertion. History of chronic obstructive lung disease. GI SYSTEM: He has no nausea, no vomiting. He had GI bleeding as noted. SYSTEM: No dysuria or hematuria. NERVOUS SYSTEM: No history of stroke or seizure. PHYSICAL EXAMINATION: GENERAL: A 70-year-old male, alert, oriented, in no apparent distress. VITAL SIGNS: Blood pressure running in the 120s to 130s with a heart rate in 90s. Temperature of a 100.2. HEAD: Normocephalic. Eyes sclerae anicteric. NECK: Good carotid upstroke, no bruit, no jugular venous distention. LUNGS: With decreased air exchange, no wheezes. HEART: Regular rate and rhythm S1, S2. No S3. No rub with a systolic murmur at the base. No diastolic murmur. ABDOMEN: Soft, obese, nontender. EXTREMITIES: No edema. LAB DATA: Lab data revealed a hemoglobin of 7.4, he was down to 6.1. His white blood cells are 12.2, BUN and creatinine of 8 and 0.7. Potassium 3.2. His EKG reveals sinus tachycardia with nonspecific ST-T wave changes. Chest x-ray shows no acute infiltrate. IMPRESSION: 1. Acute gastrointestinal bleeding with severe anemia. Workup in progress. 2. Episode of tachycardia, most likely exacerbated by the anemia and the fever could have a role with that. There is no evidence of malignant arrhythmia at this time. 3. History of hypertension. 4. Hyperlipidemia. 5. History of chronic obstructive lung disease. 6. History of alcohol intake. RECOMMENDATION: From the cardiac standpoint, his arrhythmia does not require any treatment at this time. I will restart him on his diuretics as well as his statin. I will obtain echocardiogram with Doppler and depending on his progress further recommendation will be made. Thank you for this consult. We will follow with you. PEPE / FABI: [id number] /
[2021-03-27 10:17] LABS: Basophils # (A) 0.03 X 10*3/uL (0.00-0.10); Basophils % (A) 0.3 %; Eosinophils # (A) 0.46 X 10*3/uL (0.04-0.35); Eosinophils % (A) 4.6 %; HCT 21.8 % (39.6-50.0); Lymphocytes # (A) 2.04 X 10*3/uL (0.90-5.00); Lymphocytes % (A) 20.2 %; MCH 31.4 pg (27.0-32.0); MCHC 32.1 g/dL (32.0-37.0); MCV 97.8 fL (80.0-97.0); Mean Platelet Volume 9.7 fL (9.5-12.2); Monocytes # (A) 0.84 X 10*3/uL (0.20-1.00); Monocytes % (A) 8.3 %; Neutrophils # (A) 6.65 X 10*3/uL (1.80-7.70); Neutrophils % (A) 65.9 %; Platelet Count 439 X 10*3/uL (140-440); RBC 2.23 X 10*6/uL (4.40-5.60); RDW 18.7 % (11.5-14.5); WBC 10.09 X 10*3/uL (4.50-10.00)
[2021-03-27 11:25] LABS: African American GFR (CKD) 104.9 (60.0-200.0); Albumin 3.1 g/dL (3.80-4.90); Albumin/Globulin Ratio 1.55 (1.60-3.17); Anion Gap 10.3 mmol/L (4.00-12.00); BUN/Creat Ratio 8.75 Ratio (12.00-20.00); Calcium 7.7 mg/dL (8.7-10.3); Carbon Dioxide 22.7 mmol/L (21.6-31.8); Non-African American GFR(CKD) 90.5 (60.0-200.0); Potassium 3.2 mmol/L (3.5-5.5); Total Bilirubin 0.4 mg/dL (0.3-1.2); Total Protein 5.1 g/dL (6.2-8.2)
--- NOTE | 2021-03-27 11:32 | CT ---
EXAMINATION TYPE: CT abdomen pelvis w con DATE OF EXAM: 03/27/2021 COMPARISON: None HISTORY: fever, rectal bleeding CT DLP: 1753.7 mGycm Automated exposure control for dose reduction was used. TECHNIQUE: Helical acquisition of images from the lung bases through the pelvis have been completed. CONTRAST: Performed without Oral Contrast and with IV Contrast, patient injected with 100 mL of Isovue 300. FINDINGS: Distal esophagus appears somewhat thickened, small hiatal hernia suspected. Left inguinal h ernia contains fat, surgical clips are present along the deep aspect of the anterior abdominal wall i n the midline. LUNG BASES: Some probable basilar atelectatic changes are present bilaterally. AORTA: No significant abnormality is appreciated. LIVER/GB: The liver shows low attenuation possibly due to hepatic steatosis, gallbladder is unremarka ble PANCREAS: No significant abnormality is seen. SPLEEN: Not seen, some nodular soft tissue foci in the left upper quadrant measuring approximately 18 and 15 mm may represent splenosis, correlate for history of splenectomy ADRENALS: No significant abnormality is seen. KIDNEYS: Nonobstructive 5 mm calculus present at the posterior aspect of the midpole of the right kid kim, some small cortical cysts are associated with the left kidney. REPRODUCTIVE ORGANS: No significant abnormality is seen BOWEL: There is diverticular change noted in the sigmoid colon, inflammatory changes are present in the region adjacent to the descending colon and sigmoid colon junction, axial image 66 through 72 arian w increased attenuation within the localized fat. There is no bowel obstruction. The appendix is norm al. FREE AIR: No Free Air visible. ASCITES: None visible. PELVIC ADENOPATHY: None visualized. RETROPERITONEAL ADENOPATHY: No Retroperitoneal Adenopathy visible. URINARY BLADDER: No significant abnormality is seen. OSSEOUS STRUCTURES: No significant abnormality is seen. IMPRESSION: DIVERTICULITIS. POSTOP CHANGES. LEFT INGUINAL HERNIA CONTAINS FAT. 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 CORREL ATE FOR PRIOR SPLENECTOMY. ADDITIONAL FINDINGS ABOVE.
--- NOTE | 2021-03-27 12:06 | ECHOF ---
Referral Reason:htn MEASUREMENTS -------- HEIGHT: 165.1 cm WEIGHT: 103.9 kg BP: IVSd: 1.2 cm (0.6 - 1.1) LVIDd: 4.6 cm (3.9 - 5.3) LVPWd: 1.2 cm (0.6 - 1.1) IVSs: 1.3 cm LVIDs: 3.8 cm LVPWs: 1.4 cm LAESV Index (A-L): 30.03 ml/m Ao Diam: 3.6 cm (2.0 - 3.7) AV Cusp: 2.1 cm (1.5 - 2.6) LA Diam: 3.8 cm (2.7 - 3.8) MV EXCURSION: 26.941 mm (> 18.000) MV EF SLOPE: 127 mm/s (70 - 150) EPSS: 0.5 cm RAP: 5.00 mmHg RVSP: 14.63 mmHg FINDINGS -------- Sinus rhythm. This was a technically adequate study. The left ventricular size is normal. There is mild concentric left ventricular hypertrophy. Overa ll left ventricular systolic function is normal with, an EF between 55 - 60 %. The right ventricle is normal in size. LA is midly dilated 29-33ml/m2. The right atrial size is normal. The aortic valve was not well visualized. The mitral valve is normal. Mild mitral regurgitation is present. The tricuspid valve appears structurally normal. Mild tricuspid regurgitation present. Right vent ricular systolic pressure is normal at < 35 mmHg. The pulmonic valve was not well visualized. The aortic root size is normal. Echo free space represents a pericardial fat pad. CONCLUSIONS -------- 1. There is mild concentric left ventricular hypertrophy. 2. Overall left ventricular systolic function is normal with, an EF between 55 - 60 %. 3. LA is midly dilated 29-33ml/m2. 4. The aortic valve was not well visualized. 5. Mild mitral regurgitation is present. 6. Mild tricuspid regurgitation present. 7. Echo free space represents a pericardial fat pad. SOCIAL STAFF WORKER: Gisela Kim RDCS
[2021-03-27] MEDS ORDERED: AZITHROMYCIN 500 MG TAB PO SCH (14:00)
[2021-03-27] MEDS ORDERED: Potassium Replacement Protocol 1 EACH MISC MISCELLANE PRN (17:51)
[2021-03-27] MEDS: POTASSIUM CHLORIDE ER 20 MEQ TAB.ER PO SCH ×2 (17:59→20:22)
[2021-03-27] MEDS: PIPERACILLIN-TAZOBACTAM 3.375 GM in SODIUM CHLORIDE 0.9% 100 ML IVPB SCH ×2 (17:59→23:28)
--- NOTE | 2021-03-27 20:26 | CONS ---
CONSULTATION DATE OF SERVICE: 03/27/2021 REASON FOR CONSULTATION: Fever. HISTORY OF PRESENT ILLNESS: The patient is a 70-year-old male who presented to the hospital 3 days ago on Friday for evaluation of rectal bleed. Patient mentioned his symptoms have been going on and off for about a week before presentation to the hospital. The patient has been complaining of intermittent episodes of black stools over the last 2 weeks, decreased appetite, dizziness and lightheadedness and also complaining of left-sided abdominal pain which has been intermittent. The patient described the pain to be more of a dull aching at times colicky, intensity 5-6 out of 10. No radiation. With these symptoms, the patient has been evaluated by the ER physician. On arrival to the ER, the patient was afebrile to a low-grade fever of 99.5. Since then the patient did spike a fever on a daily basis of 100-100.4 degrees Fahrenheit with a temperature of 101.5 last evening that has prompted this infectious disease consultation. The patient did have a hemoglobin 6.1 on admission, and it is up to 7.2 today. The patient did have white count 11.2 which is up to 12.2 yesterday. The patient did have a negative UA x2. Long PCR was negative. The patient did have a chest x-ray which was normal. The patient is currently being treated with Rocephin and Zithromax. Infectious Disease was consulted for further management of antibiotic therapy. REVIEW OF SYSTEMS: Positive points have been mentioned in HPI. Rest of systems are negative. PAST MEDICAL HISTORY: COPD, hypertension, hyperlipidemia, prostate cancer. PAST SURGICAL HISTORY: Heart catheterization, hernia repair, post splenectomy and inguinal hernia repair. SOCIAL HISTORY: Denies smoking. Occasionally drinks. Did admit to marijuana use. FAMILY HISTORY: Father with history of diabetes mellitus. ALLERGIES: No known drug allergies. MEDICATIONS: The patient is currently on Tylenol, Ventolin, Norvasc, Lipitor, Symbicort, Narcan, Protonix, and IV fluids. PHYSICAL EXAMINATION: Blood pressure 121/74 with a pulse of 100, temperature 98.7. He is 97% on 2 L nasal cannula. General description is an elderly male lying in no distress. No tachypnea or accessory muscles of respiration use. HEENT: Examination shows pallor. No scleral icterus. Oral mucous membrane is dry. NECK: Trachea central. No thyromegaly. LUNGS unlabored breathing, decreased intensity of breath sounds. No wheeze or crackles. Heart S1, S2. Regular rate and rhythm. Abdomen soft, no tenderness. Mildly tender left lower quadrant. No guarding. No rigidity. EXTREMITIES: No edema of the feet. SKIN: No rash or mass palpable. NEUROLOGICAL: Patient awake and alert and oriented times three. Mood and affect normal. LABS: Hemoglobin 10, white count 10.09, BUN of 7, creatinine 0.8, potassium 3.2. Urine is negative. Chest x-ray was normal. DIAGNOSTIC IMPRESSION AND PLAN: Patient admitted to the hospital with bleeding per rectum, dark stools, left-sided abdominal pain and fever, likely secondary to acute diverticulitis and will need to cover for enteric gram-negative both aerobes and anaerobes. Clinically doubt pneumonia as the patient did not have any respiratory symptoms and did have negative chest x-ray. Urine was negative and no other obvious focus of infection. PLAN: 1. Discontinue Rocephin and Zithromax. 2. Start the patient on Zosyn 3.375 g q.8 hours. 3. Gentle IV fluid. 4. We will follow on clinical condition and further adjust medication if needed. Thank you for this consultation. We will follow this patient along with you. MMODL / IJN: [id number] /
[2021-03-27] MEDS ORDERED: ATORVASTATIN 20 MG TAB PO SCH (21:00)
[2021-03-27] MEDS: metroNIDAZOLE 500 MG TAB PO SCH (23:28)
[2021-03-28] MEDS: SODIUM CHLORIDE 0.9% 1,000 ML IV SCH (02:56)
[2021-03-28] MEDS: ALBUTEROL NEBULIZED 2.5 MG/3 ML INHALATION SCH (07:29)
[2021-03-28] MEDS: SYMBICORT 160-4.5 MCG INHALER INHALATION SCH (07:29)
[2021-03-28] MEDS: metroNIDAZOLE 500 MG TAB PO SCH (09:09)
[2021-03-28] MEDS: PIPERACILLIN-TAZOBACTAM 3.375 GM in SODIUM CHLORIDE 0.9% 100 ML IVPB SCH (09:09)
[2021-03-28] MEDS: amLODIPine 10 MG TAB PO SCH (09:09)
[2021-03-28] MEDS: PANTOPRAZOLE 40 MG/10 ML VIAL IV SCH (09:09)
--- NOTE | 2021-03-28 10:47 | P.PN ---
Subjective Progress Note Date: 03/28/21 HISTORY OF PRESENT ILLNESS: Patient examined this morning. He is sitting on the side of the bed. Patient denies any chest pain or pressure. He reports mild shortness of breath which he states is his baseline secondary to his COPD. Patient's heart rate has remained stable with a heart rate currently in the 90s. Blood pressure stable. Echocardiogram performed reveals ejection fraction 55-60%, mild mitral regurgitation, and mild tricuspid regurgitation PHYSICAL EXAM: VITAL SIGNS: Reviewed. GENERAL: Well-developed in no acute distress. NECK: Supple. No JVD or thyromegaly LUNGS: Respirations even and unlabored. Lungs diminished bilaterally. HEART: Regular rate and rhythm. S1 and S2 heard. EXTREMITIES: Normal range of motion. No clubbing or cyanosis. Peripheral pulses intact. No lower extremity edema ASSESSMENT: Acute GI bleeding with anemia Episode of sinus tachycardia, likely secondary to anemia and fever. No evidence of arrhythmia Hypertension Hyperlipidemia COPD History of alcohol intake PLAN: Continue current cardiac medications No further inpatient recommendations from a cardiac standpoint We will sign off. Please reconsult if needed Nurse practitioner note has been reviewed by physician. Signing provider agrees with the documented findings, assessment, and plan of care. Objective - Vital Signs Vital signs: Vital Signs Temp 98.2 F 03/28/21 07:00 Pulse 98 03/28/21 07:38 Resp 18 03/28/21 07:00 BP 119/73 03/28/21 07:00 Pulse Ox 97 03/28/21 07:00 Intake & Output 03/27/21 03/28/21 03/28/21 18:59 06:59 18:59 Output Total 1000 500 Balance -1000 -500 Output: Urine 1000 500 Other: Voiding Method Toilet Urinal # Voids 2 1 # Bowel Movements 2 - Labs CBC & Chem 7: 03/27/21 04:43 03/27/21 04:43 Labs: Abnormal Lab Results - Last 24 Hours (Table) 03/27/21 Range/Units 04:43 Potassium 3.2 L (3.5-5.5) mmol/L Chloride 110 H (96-109) mmol/L BUN 7.0 L (9.0-27.0) mg/dL BUN/Creatinine Ratio 8.75 L (12.00-20.00) Ratio Glucose 126 H (70-110) mg/dL Calcium 7.7 L (8.7-10.3) mg/dL Total Protein 5.1 L (6.2-8.2) g/dL Albumin 3.10 L (3.80-4.90) g/dL Albumin/Globulin Ratio 1.55 L (1.60-3.17) g/dL Microbiology - Last 24 Hours (Table) 03/26/21 12:35 Blood Culture - Preliminary Blood No Growth after 24 hours 03/26/21 12:40 Blood Culture - Preliminary Blood No Growth after 24 hours
[2021-03-28 12:32] LABS: African American GFR (CKD) >90 (>60 ml/min/1.73 sqM); Anion Gap 6 mmol/L; Blood Urea Nitrogen 5 mg/dL (9-20); Calcium 8.4 mg/dL (8.4-10.2); Carbon Dioxide 26 mmol/L (22-30); Chloride 107 mmol/L (98-107); Glucose 128 mg/dL (74-99); Non-African American GFR(CKD) 86 (>60 ml/min/1.73 sqM); Potassium 3.1 mmol/L (3.5-5.1); Sodium 139 mmol/L (137-145)
[2021-03-28] MEDS ORDERED: POTASSIUM CHLORIDE ER 20 MEQ TAB.ER PO STA (12:52)
[2021-03-28 13:00] LABS: Anisocytosis Slight; Basophils # (A) 0.1 k/uL (0-0.2); Basophils % (A) 1 %; Eosinophils # (A) 0.4 k/uL (0-0.7); Eosinophils % (A) 4 %; HCT 23.2 % (39.0-53.0); HGB 7.9 gm/dL (13.0-17.5); Hypochromasia Slight; Lymphocytes # (A) 1.6 k/uL (1.0-4.8); Lymphocytes % (A) 17 %; MCH 31.9 pg (25.0-35.0); MCHC 33.9 g/dL (31.0-37.0); MCV 94.1 fL (80.0-100.0); Mean Platelet Volume 7.1; Monocytes # (A) 0.6 k/uL (0-1.0); Monocytes % (A) 6 %; Neutrophils # (A) 6.6 k/uL (1.3-7.7); Neutrophils % (A) 70 %; Platelet Count 549 k/uL (150-450); Poikilocytosis Slight; RBC 2.47 m/uL (4.30-5.90); RDW 17.3 % (11.5-15.5); WBC 9.4 k/uL (3.8-10.6)
--- NOTE | 2021-03-28 13:31 | PN ---
PROGRESS NOTE DATE OF SERVICE: 03/28/2021. REASON FOR FOLLOWUP: Fever secondary to diverticulitis. INTERVAL HISTORY: Patient is afebrile. The patient is feeling better. Breathing comfortably. Patient denies having any chest pain, shortness of breath or cough. No abdominal pain or diarrhea. No further bleeding per rectum. PHYSICAL EXAMINATION: Blood pressure 119/73 with a pulse of 99, temperature 98.2. He is 97% on 2 L nasal cannula. General description is an elderly male lying in bed in no distress. Respiratory system: Unlabored breathing, clear to auscultation anteriorly. Heart S1, S2. Regular rate and rhythm. ABDOMEN: Soft, no tenderness. LABS: BUN of 5, creatinine 0.90. Blood culture has been negative. DIAGNOSTIC IMPRESSION AND PLAN: Patient with fever, source likely diverticulitis. Overall improvement on Zosyn. Finish therapy with oral Ceftin and Flagyl for 10 days and close outpatient followup. Discussed with the primary team working on discharge. MMODL / IJN: [id number] /
[2021-03-28 15:20] VITALS: BP 110/62; PULSE 96; RESP 20; TEMP 98.3
--- NOTE | 2021-03-28 16:07 | P.DS ---
Providers Date of admission: 03/26/21 12:44 Expected date of discharge: 03/28/21 Attending physician: Jane Donald Consults: 03/24/21 15:32 Consult Physician Routine Consulting Provider: Wanda Clark Consult Reason/Comments: GI bleed Do you want consulting provider notified?: Yes 03/26/21 17:27 Consult Physician Routine Consulting Provider: [facility] Consult Reason/Comments: possible junctional rhythm Do you want consulting provider notified?: Yes, Notify in am 03/27/21 00:16 Consult Physician Routine Consulting Provider: Gus Monterroso Consult Reason/Comments: Fever Do you want consulting provider notified?: Yes, Notify in am Primary care physician: Lorne Washington Hospital Course: Final diagnosis Acute blood loss anemia -GI bleed Lactic acidosis secondary to above Moderate protein calorie malnutrition Junctional rhythm Hypertension Hyperlipidemia COPD Prostate cancer status post radiation therapy History of splenectomy Former smoker Current marijuana use Discharge disposition Patient is being discharged in a stable condition with guarded prognosis to home. Patient will follow-up with Dr. Washington in the outpatient setting upon discharge. Patient is to also follow up with urology Dr. Carranza outpatient. Patient will continue on oral antibiotic cement form of Flagyl 500 mg 3 times daily along with Ceftin 500 mg twice daily for the next 10 days to complete the course. Patient also instructed to follow-up with surgery outpatient. Patient to continue with current diet. Prescription also provided for repeat labs to monitor CBC and electrolytes closely. Total time taken is greater than 35 minutes. Hospital course Acute blood loss anemia GI Bleed Mr. Infante is a 70-year-old male with a past medical history of prostate c ancer, COPD, hypertension, hyperlipidemia coming in the hospital with a chief complaint of dark-colored stool. Patient states that he has been having dark- colored stool for more than 2 weeks with decreased appetite. He was also complaining of mild left-sided lower abdominal pain. He states that on evening he started to have diarrhea and noticed blood in his stools. He also complains of fatigue and lightheadedness, that brought him to the ER. Patient also mentions about drinking 4-6 beers every day for 5 days prior to this episode. He states that he moved from [place] to [place] and he has nothing to do here so started drinking. Patient denies having any nausea or vomiting. He mentions about having a colonoscopy 3 to 4 years back but does not remember the results. Patient denies being on any blood thinners. He takes daily aspirin 81 mg. Patient denied having any chest pain or palpitations. But he mentions about feeling lightheaded but never lost consciousness. Patient denies having any cough or difficulty in breathing. He denies having any dysuria or hematuria. He denies having any focal weakness in his extremities. In the ER at the time of admission is vitals temperature of 99.5, heart rate 100s to 120s, respiratory 22, blood pressure 134/107, saturating at 98% on 2 L of oxygen and reviewing his labs white count of 8.2, hemoglobin 8.5, platelets 297. INR 0.9. Sodium 137, potassium 3.6, chloride 106, bicarb 25, BUN 28, creatinine 0.93, lactic acid 2.2 Albumin of 2.7 UA negative for nitrites and leukocyte esterase FOBT positive for blood. coronavirus PCR negative. Patient had KUB x-ray showing no acute abdominal EKG showing junctional rhythm and prolonged QT. On 03/25/2021- patient is lying comfortably in bed appears to be no acute distress. He just got back from upper endoscopy. Patient denies having any more diarrhea. Patient's hemoglobin dropped to 6.1 last night, he was transfused 2 units of PRBCs and this morning his repeat hemoglobin is around 6.8. Patient denies having any chest pain or palpitations. He states that he feels less tired this morning. Patient denies having any cough or difficulty breathing. No fever chills or rigors. No abdominal pain nausea or vomiting. On reviewing the vitals temperature of 98.2, heart rate between 90s to 100s, respiratory 16, blood pressure 170/70, saturating at 96% on room air. Reviewing the last of this morning white count 11.3, hemoglobin 6.8, platelets 318. Sodium 142 comfortably point, chloride 100, bicarbonate, BUN 24, creatinine 0.9. On 03/26/2021 - patient is lying in bed appears to be no acute distress. He is scheduled for a colonoscopy and states that he is hungry as he is nothing by mouth for the procedure. Patient denies having any chest pain or palpitations. He states that his difficulty in breathing is mild. Denies having any cough. No abdominal pain nausea vomiting and no bleeding in his stool. Patient did not have a bowel movement since admission. Patient denies having any dysuria or hematuria. On reviewing the vitals temperature 98.6, heart rate between 90s to 110s, respiratory rate 18, blood pressure 108/63, saturating at 91% on 2 L of o xygen. On reviewing the last from this morning white count of 12.2, hemoglobin 7.4, platelets 371. Sodium 140, potassium 3.2, chloride 109, bicarbonate 23, BUN 8, creatinine 0.7. 03/28/2021 Patient Seen in follow-up this morning stating he would like to go home today. Patient was being closely monitored by surgery Dr. Clark along with cardiology and infectious disease. Patient will continue on oral antibiotics in the form of Ceftin and Flagyl for the next 10 days to complete the course. Patient is tolerating diet with no reports of nausea or vomiting noted and denies any abdominal discomfort. Hemoglobin today is 7.9 with no active bleeding noted. Potassium found to be 3.1 and replaced and prescriptions provided for repeat labs to monitor electrolytes along with CBC closely. Patient is adamant about going home today. Currently no reports of chest pain, shortness of breath, or palpitations. Patient is afebrile. No reports of nausea or vomiting and patient is tolerating diet. Patient will be discharged home today. On exam vital signs are stable. Cardio S1, S2 are muffled. Respiratory system shows diminished breath sounds at the bases with no wheezing or rhonchi noted. Abdomen is soft and obese, and nontender. Nervous system shows no focal deficits. Please refer to medication reconciliation sheet for a list of medications. Patient Condition at Discharge: Fair Plan - Discharge Summary Discharge Rx Participant: Yes New Discharge Prescriptions: New Pantoprazole Sodium [Protonix] 40 mg PO DAILY #30 tablet. Acetaminophen Tab [Tylenol] 650 mg PO Q6HR PRN tab PRN Reason: Mild Pain Or Fever > 100.5 Cefuroxime Axetil [Ceftin] 500 mg PO BID 10 Days #20 tab metroNIDAZOLE [Flagyl] 500 mg PO Q8HR 10 Days #30 tab Continue Cholecalciferol [Vitamin D3 (25 Mcg = 1000 Iu)] 1,000 unit PO DAILY Multivitamins, Thera [Multivitamin (formulary)] 1 tab PO DAILY [place]-3 Fatty Acids/Fish Oil [Fish Oil 1,000 mg Softgel] 1 cap PO DAILY Calcium Carbonate [Calcium] 600 mg PO DAILY Budesonide/Formoterol Fumarate [Symbicort 160-4.5 Mcg Inhaler] 2 puff INHALATION RT-BID Albuterol Nebulized [Ventolin Nebulized] 2.5 mg INHALATION RT-BID amLODIPine [Norvasc] 10 mg PO DAILY calcium polycarbophiL [Fibercon] 625 mg PO DAILY Atorvastatin [Lipitor] 20 mg PO HS Discontinued hydroCHLOROthiazide [Hydrodiuril] 12.5 mg PO DAILY Aspirin [Adult Low Dose Aspirin EC] 81 mg PO DAILY Meloxicam [Mobic] 15 mg PO DAILY PRN PRN Reason: Pain Discharge Medication List Albuterol Nebulized [Ventolin Nebulized] 2.5 mg INHALATION RT-BID 03/17/19 [History] Budesonide/Formoterol Fumarate [Symbicort 160-4.5 Mcg Inhaler] 2 puff INHALATION RT-BID 03/17/19 [History] Calcium Carbonate [Calcium] 600 mg PO DAILY 03/17/19 [History] Cholecalciferol [Vitamin D3 (25 Mcg = 1000 Iu)] 1,000 unit PO DAILY 03/17/19 [History] Multivitamins, Thera [Multivitamin (formulary)] 1 tab PO DAILY 03/17/19 [History] [place]-3 Fatty Acids/Fish Oil [Fish Oil 1,000 mg Softgel] 1 cap PO DAILY 03/17/19 [History] Atorvastatin [Lipitor] 20 mg PO HS 03/24/21 [History] amLODIPine [Norvasc] 10 mg PO DAILY 03/24/21 [History] calcium polycarbophiL [Fibercon] 625 mg PO DAILY 03/24/21 [History] Acetaminophen Tab [Tylenol] 650 mg PO Q6HR PRN tab 03/28/21 [Rx] Cefuroxime Axetil [Ceftin] 500 mg PO BID 10 Days #20 tab 03/28/21 [Rx] Pantoprazole Sodium [Protonix] 40 mg PO DAILY #30 tablet. 03/28/21 [Rx] metroNIDAZOLE [Flagyl] 500 mg PO Q8HR 10 Days #30 tab 03/28/21 [Rx] Follow up Appointment(s)/Referral(s): Shane Carranza MD [STAFF PHYSICIAN] - 1 Week Lorne Washington MD [Primary Care Provider] - 1-2 days Ambulatory/Diagnostic Orders: Complete Blood Count w/diff [LAB.AMB] Time Frame: 3 Days, Location: None Selected Patient Instructions/Handouts: Gastrointestinal Bleeding (DC), Dehydration (DC), Anemia (DC), Tachycardia (ED) Activity/Diet/Wound Care/Special Instructions: Activity Limited until follow-up Continue current diet Repeat labs in 2-3 days to monitor kidney functions, electrolytes, hemoglobin Continue with antibiotics until finished Follow-up surgery Dr. Clark outpatient Follow-up cardiology outpatient Monitor for fevers and treat with Tylenol Discharge Disposition: HOME SELF-CARE
== END 2021-03-28 15:31 | disposition home or self-care (01) | DRG 378 ==
LOC: EC 14:01 → 6NMEDSUR 15:40 → OBSVTOIN 03-26 12:44
PROVIDERS: ADMIT Internal Medicine; ATTEND Internal Medicine
PROC: 30230N1 Transfusion of Nonautologous Red Blood Cells into Peripheral Vein, Open Approach (ICD-10-PCS; 2021-03-24)
PROC: 0DJ08ZZ Inspection of Upper Intestinal Tract, Via Natural or Artificial Opening Endoscopic (ICD-10-PCS; principal; 2021-03-25 08:00)
PROC: 0DBN8ZX Excision of Sigmoid Colon, Via Natural or Artificial Opening Endoscopic, Diagnostic (ICD-10-PCS; 2021-03-26)
PROC: 0DBL8ZX Excision of Transverse Colon, Via Natural or Artificial Opening Endoscopic, Diagnostic (ICD-10-PCS; 2021-03-26)
DX: K57.33 Diverticulitis of large intestine without perforation or abscess with bleeding (principal); D62 Acute posthemorrhagic anemia; E87.2 Acidosis; E44.0 Moderate protein-calorie malnutrition; E86.0 Dehydration; J44.9 Chronic obstructive pulmonary disease, unspecified; Z20.822 Contact with and (suspected) exposure to COVID-19; K29.80 Duodenitis without bleeding; K63.5 Polyp of colon; K29.70 Gastritis, unspecified, without bleeding; K44.9 Diaphragmatic hernia without obstruction or gangrene; E78.5 Hyperlipidemia, unspecified; I10 Essential (primary) hypertension; I49.8 Other specified cardiac arrhythmias; I08.1 Rheumatic disorders of both mitral and tricuspid valves; E66.9 Obesity, unspecified; Z68.38 Body mass index [BMI] 38.0-38.9, adult; Z79.82 Long term (current) use of aspirin; Z79.51 Long term (current) use of inhaled steroids; Z79.1 Long term (current) use of non-steroidal anti-inflammatories (NSAID); Z79.899 Other long term (current) drug therapy; Z90.81 Acquired absence of spleen; Z85.46 Personal history of malignant neoplasm of prostate; Z92.3 Personal history of irradiation; Z87.19 Personal history of other diseases of the digestive system; Z87.891 Personal history of nicotine dependence; Z83.3 Family history of diabetes mellitus
CPT/HCPCS: 36415; 43235; 45384; 71046; 74018; 74177; 80048; 80053; 81001; 81003; 82150; 82272; 82550; 83605; 83690; 84484; 85025; 85027; 85610; 85730; 86850; 86900; 86901; 86920; 87040; 87635; 88305; 93005; 93306; 94640; 94760; 99285

== ENCOUNTER 2021-03-29 20:42 | Inpatient (IN) | payer MEDICARE, OTHER ==
[2021-03-29] MEDS ORDERED: NALOXONE 0.4 MG/ML 10 ML VIAL IVP PRN (20:46)
[2021-03-29] MEDS ORDERED: SODIUM CHLORIDE 0.9% 1,000 ML IV STA (20:49)
[2021-03-29] MEDS ORDERED: LORazepam 2 MG/ML INJ IV STA (20:59)
[2021-03-29 21:00] LABS: Glucose,Whole Blood 179 mg/dL (75-99)
--- NOTE | 2021-03-29 21:02 | ED ---
General Adult HPI - General Chief complaint: Altered Mental Status Stated complaint: Unresponsive Time Seen by Provider: 03/29/21 20:49 Source: EMS - History of Present Illness Initial comments: Dictation was produced using [employer] dictation software. please excuse any grammatical, word or spelling errors. Chief Complaint: 70 y Old male brought in by EMS for altered mental status. History of Present Illness: A 70-year-old male presents to the emergency department for altered mental status. Patient was just discharged from the hospital for GI bleed. Chin unable to provide HPI at this time. EMS reports that he was given 1 mg of IV Narcan with no change. He had normal sugar. Discharge summary shows that patient was admitted for acute blood loss anemia secondary GI bleed with lactic acidosis. Unable to obtain ROS secondary to mental status. PHYSICAL EXAM: General Impression: Obtunded, unresponsive, minimal blood and mucus the right naris HEENT: Normocephalic atraumatic, extra-ocular movements intact, pupils equal and reactive to light bilaterally, mucous membranes moist. Cardiovascular: Tachycardic Chest: no retractions, no tachypnea Abdomen: abdomen soft, non-tender, non-distended, no organomegaly Musculoskeletal: Pulses present and equal in all extremities, no peripheral edema Motor: no focal deficits noted Neurological: Signs to painful stimuli, no clonus, no hyperreflexia. There is some flattening of the right nasolabial fold. NIH of 13. Does not follow commands. Patient gazes to the left. ED course: 70 y Old male presents with altered mental status. Unclear when patient symptoms started. Patient given 2 mg of Narcan with no change. Code yovani terrazas was paged. Patient not follow commands. Patient given NIH of 13 Laboratory evaluation obtained. No leukocytosis. After blood gases 7.28, pCO2 55, pO2 114 with a FiO2 100, bicarb 26. Metabolic panel is within acceptable limits. Troponin elevated 0.013. Brain natruretic peptide is 47. No concerns for heart failure. Toxicology labs are negative. Urine drug screen positive for marijuana. At this point patient presents with acute respiratory failure. Appears that it's hypercarbic respiratory failure. He also does have a prolonged QT and his EKG medications reviewed per is unclear what is causing patient's prolonged QT. He also has a normal magnesium. EKG interpretation: Ventricular rate 170, sinus tachycardia, MA interval 90, QRS 108, QTc 577. No MA prolongation, QT is prolonged. EKG appears similar from 03/24/2021 Computed tomography scan of the brain shows no acute processes. CT angiogram of the head shows mild plaque formation of the carotid artery bifurcations however no hemodynamic stenosis. Venous chest x-ray shows diffuse infiltrates new compared to old exam. Patient was intubated using RSI technique. Post ET tube placement x-ray shows good position. It is unclear what is causing patient's encephalopathy. Patient be admitted to intensive care unit. Case discussed Dr. Holman. - Related Data Home Medications Medication Instructions Recorded Confirmed Albuterol Nebulized [Ventolin 2.5 mg INHALATION RT-BID 03/17/19 03/29/21 Nebulized] Budesonide/Formoterol Fumarate 2 puff INHALATION RT-BID 03/17/19 03/29/21 [Symbicort 160-4.5 Mcg Inhaler] Calcium Carbonate [Calcium] 600 mg PO DAILY 03/17/19 03/29/21 Cholecalciferol [Vitamin D3 (25 1,000 unit PO DAILY 03/17/19 03/29/21 Mcg = 1000 Iu)] Multivitamins, Thera [Multivitamin 1 tab PO DAILY 03/17/19 03/29/21 (formulary)] [place]-3 Fatty Acids/Fish Oil [Fish 1 cap PO DAILY 03/17/19 03/29/21 Oil 1,000 mg Softgel] Atorvastatin [Lipitor] 20 mg PO HS 03/24/21 03/29/21 amLODIPine [Norvasc] 10 mg PO DAILY 03/24/21 03/29/21 calcium polycarbophiL [Fibercon] 625 mg PO DAILY 03/24/21 03/29/21 Previous Rx's Medication Instructions Recorded Acetaminophen Tab [Tylenol] 650 mg PO Q6HR PRN tab 03/28/21 Cefuroxime Axetil [Ceftin] 500 mg PO BID 10 Days #20 tab 03/28/21 Pantoprazole Sodium [Protonix] 40 mg PO DAILY #30 tablet. 03/28/21 metroNIDAZOLE [Flagyl] 500 mg PO Q8HR 10 Days #30 tab 03/28/21 Allergies Allergy/AdvReac Type Severity Reaction Status Date / Time No Known Allergies Allergy Verified 03/29/21 21:28 Review of Systems ROS Statement: Those systems with pertinent positive or pertinent negative responses have been documented in the HPI. ROS Other: All systems not noted in ROS Statement are negative. Past Medical History Past Medical History: Cancer, COPD, Hyperlipidemia, Hypertension Additional Past Medical History / Comment(s): prostate cancer History of Any Multi-Drug Resistant Organisms: None Reported Past Surgical History: Heart Catheterization, Hernia Repair Additional Past Surgical History / Comment(s): radiation on prostate, spleenectomy, unguinal blateral Past Anesthesia/Blood Transfusion Reactions: No Reported Reaction Past Psychological History: No Psychological Hx Reported Smoking Status: Former smoker Past Alcohol Use History: Occasional Past Drug Use History: Marijuana - Past Family History Father Family Medical History: Diabetes Mellitus Course Vital Signs 03/29/21 03/29/21 20:47 20:48 Temperature 97.5 F L Pulse Rate 115 H Respiratory 30 H 30 H Rate Blood Pressure 131/96 O2 Sat by Pulse 97 Oximetry Procedures - Intubation Sedative: Etomidate Mg Given: 20 Paralytic: Rocuronium Mg Given: 50 Laryngoscope: fiber optic video scope Size: 3 Assist Device Used: fiber optic device ET Tube Size: 8 ET Tube Uncuffed: No Tube Secured Depth (cm): 23 Tube Secured Location: lips Tube Placement Confirmation: visualized tube passing through cords, equal breath sounds bilaterally, no breath sounds over epigastrium, confirmation by capnometry Patient Tolerated Procedure: well Intubation Complications: none Medical Decision Making - Lab Data Result diagrams: 03/29/21 20:48 03/29/21 20:48 Lab Results 03/29/21 03/29/21 03/29/21 Range/Units 20:48 20:48 20:48 WBC 10.4 (3.8-10.6) k/uL RBC 2.65 L (4.30-5.90) m/uL Hgb 8.3 L (13.0-17.5) gm/dL Hct 25.1 L (39.0-53.0) % MCV 94.6 (80.0-100.0) fL MCH 31.3 (25.0-35.0) pg MCHC 33.1 (31.0-37.0) g/dL RDW 17.7 H (11.5-15.5) % Plt Count 696 H (150-450) k/uL MPV 7.0 Neutrophils % 70 % Lymphocytes % 17 % Monocytes % 7 % Eosinophils % 5 % Basophils % 1 % Neutrophils # 7.2 (1.3-7.7) k/uL Lymphocytes # 1.7 (1.0-4.8) k/uL Monocytes # 0.7 (0-1.0) k/uL Eosinophils # 0.5 (0-0.7) k/uL Basophils # 0.1 (0-0.2) k/uL Hypochromasia Slight Poikilocytosis Moderate Anisocytosis Slight Macrocytosis Slight Sample Site ABG pH (7.35-7.45) ABG pCO2 (35-45) mmHg ABG pO2 (83-108) mmHg ABG HCO3 (21-25) mmol/L ABG Total CO2 (19-24) mmol/L ABG O2 Saturation (94-97) % ABG Base Excess mmol/L Gaston Test FiO2 % Sodium 141 (137-145) mmol/L Potassium 3.5 (3.5-5.1) mmol/L Chloride 108 H (98-107) mmol/L Carbon Dioxide 24 (22-30) mmol/L Anion Gap 9 mmol/L BUN 9 (9-20) mg/dL Creatinine 1.45 H (0.66-1.25) mg/dL Est GFR (CKD-EPI)AfAm 56 (>60 ml/min/1.73 sqM) Est GFR (CKD-EPI)NonAf 48 (>60 ml/min/1.73 sqM) Glucose 159 H (74-99) mg/dL POC Glucose (mg/dL) (75-99) mg/dL POC Glu Principal Electrical Engineer ID Osmolality (280-301) mosm/kg Calcium 9.2 (8.4-10.2) mg/dL Magnesium (1.6-2.3) mg/dL Total Bilirubin 0.3 (0.2-1.3) mg/dL AST 39 (17-59) U/L ALT 26 (4-49) U/L Alkaline Phosphatase 63 (38-126) U/L Troponin I 0.013 (0.000-0.034) ng/mL NT-Pro-B Natriuret Pep pg/mL Total Protein 5.8 L (6.3-8.2) g/dL Albumin 3.0 L (3.5-5.0) g/dL Salicylates mg/dL Urine Opiates Screen (NotDetected) Ur Oxycodone Screen (NotDetected) Urine Methadone Screen (NotDetected) Ur Propoxyphene Screen (NotDetected) Acetaminophen ug/mL Ur Barbiturates Screen (NotDetected) U Tricyclic Antidepress (NotDetected) Ur Phencyclidine Scrn (NotDetected) Ur Amphetamines Screen (NotDetected) U Methamphetamines Scrn (NotDetected) U Benzodiazepines Scrn (NotDetected) Urine Cocaine Screen (NotDetected) U Marijuana (THC) Screen (NotDetected) Serum Alcohol mg/dL 03/29/21 03/29/21 03/29/21 Range/Units 20:48 20:48 20:48 WBC (3.8-10.6) k/uL RBC (4.30-5.90) m/uL Hgb (13.0-17.5) gm/dL Hct (39.0-53.0) % MCV (80.0-100.0) fL MCH (25.0-35.0) pg MCHC (31.0-37.0) g/dL RDW (11.5-15.5) % Plt Count (150-450) k/uL MPV Neutrophils % % Lymphocytes % % Monocytes % % Eosinophils % % Basophils % % Neutrophils # (1.3-7.7) k/uL Lymphocytes # (1.0-4.8) k/uL Monocytes # (0-1.0) k/uL Eosinophils # (0-0.7) k/uL Basophils # (0-0.2) k/uL Hypochromasia Poikilocytosis Anisocytosis Macrocytosis Sample Site ABG pH (7.35-7.45) ABG pCO2 (35-45) mmHg ABG pO2 (83-108) mmHg ABG HCO3 (21-25) mmol/L ABG Total CO2 (19-24) mmol/L ABG O2 Saturation (94-97) % ABG Base Excess mmol/L Gaston Test FiO2 % Sodium (137-145) mmol/L Potassium (3.5-5.1) mmol/L Chloride (98-107) mmol/L Carbon Dioxide (22-30) mmol/L Anion Gap mmol/L BUN (9-20) mg/dL Creatinine (0.66-1.25) mg/dL Est GFR (CKD-EPI)AfAm (>60 ml/min/1.73 sqM) Est GFR (CKD-EPI)NonAf (>60 ml/min/1.73 sqM) Glucose (74-99) mg/dL POC Glucose (mg/dL) 179 H (75-99) mg/dL POC Glu Principal Electrical Engineer ID Roger Armstrong Osmolality (280-301) mosm/kg Calcium (8.4-10.2) mg/dL Magnesium 1.7 (1.6-2.3) mg/dL Total Bilirubin (0.2-1.3) mg/dL AST (17-59) U/L ALT (4-49) U/L Alkaline Phosphatase (38-126) U/L Troponin I (0.000-0.034) ng/mL NT-Pro-B Natriuret Pep 407 pg/mL Total Protein (6.3-8.2) g/dL Albumin (3.5-5.0) g/dL Salicylates mg/dL Urine Opiates Screen (NotDetected) Ur Oxycodone Screen (NotDetected) Urine Methadone Screen (NotDetected) Ur Propoxyphene Screen (NotDetected) Acetaminophen ug/mL Ur Barbiturates Screen (NotDetected) U Tricyclic Antidepress (NotDetected) Ur Phencyclidine Scrn (NotDetected) Ur Amphetamines Screen (NotDetected) U Methamphetamines Scrn (NotDetected) U Benzodiazepines Scrn (NotDetected) Urine Cocaine Screen (NotDetected) U Marijuana (THC) Screen (NotDetected) Serum Alcohol mg/dL 03/29/21 03/29/21 03/29/21 Range/Units 21:07 21:33 22:00 WBC (3.8-10.6) k/uL RBC (4.30-5.90) m/uL Hgb (13.0-17.5) gm/dL Hct (39.0-53.0) % MCV (80.0-100.0) fL MCH (25.0-35.0) pg MCHC (31.0-37.0) g/dL RDW (11.5-15.5) % Plt Count (150-450) k/uL MPV Neutrophils % % Lymphocytes % % Monocytes % % Eosinophils % % Basophils % % Neutrophils # (1.3-7.7) k/uL Lymphocytes # (1.0-4.8) k/uL Monocytes # (0-1.0) k/uL Eosinophils # (0-0.7) k/uL Basophils # (0-0.2) k/uL Hypochromasia Poikilocytosis Anisocytosis Macrocytosis Sample Site Left Radial ABG pH 7.28 L (7.35-7.45) ABG pCO2 55 H (35-45) mmHg ABG pO2 114 H (83-108) mmHg ABG HCO3 26 H (21-25) mmol/L ABG Total CO2 28 H (19-24) mmol/L ABG O2 Saturation 97.3 H (94-97) % ABG Base Excess -1.0 mmol/L Gaston Test Yes FiO2 100 % Sodium (137-145) mmol/L Potassium (3.5-5.1) mmol/L Chloride (98-107) mmol/L Carbon Dioxide (22-30) mmol/L Anion Gap mmol/L BUN (9-20) mg/dL Creatinine (0.66-1.25) mg/dL Est GFR (CKD-EPI)AfAm (>60 ml/min/1.73 sqM) Est GFR (CKD-EPI)NonAf (>60 ml/min/1.73 sqM) Glucose (74-99) mg/dL POC Glucose (mg/dL) (75-99) mg/dL POC Glu Principal Electrical Engineer ID Osmolality 292 (280-301) mosm/kg Calcium (8.4-10.2) mg/dL Magnesium (1.6-2.3) mg/dL Total Bilirubin (0.2-1.3) mg/dL AST (17-59) U/L ALT (4-49) U/L Alkaline Phosphatase (38-126) U/L Troponin I (0.000-0.034) ng/mL NT-Pro-B Natriuret Pep pg/mL Total Protein (6.3-8.2) g/dL Albumin (3.5-5.0) g/dL Salicylates <1.0 mg/dL Urine Opiates Screen (NotDetected) Ur Oxycodone Screen (NotDetected) Urine Methadone Screen (NotDetected) Ur Propoxyphene Screen (NotDetected) Acetaminophen <10.0 ug/mL Ur Barbiturates Screen (NotDetected) U Tricyclic Antidepress (NotDetected) Ur Phencyclidine Scrn (NotDetected) Ur Amphetamines Screen (NotDetected) U Methamphetamines Scrn (NotDetected) U Benzodiazepines Scrn (NotDetected) Urine Cocaine Screen (NotDetected) U Marijuana (THC) Screen (NotDetected) Serum Alcohol <10 <10 mg/dL 03/29/21 Range/Units 22:04 WBC (3.8-10.6) k/uL RBC (4.30-5.90) m/uL Hgb (13.0-17.5) gm/dL Hct (39.0-53.0) % MCV (80.0-100.0) fL MCH (25.0-35.0) pg MCHC (31.0-37.0) g/dL RDW (11.5-15.5) % Plt Count (150-450) k/uL MPV Neutrophils % % Lymphocytes % % Monocytes % % Eosinophils % % Basophils % % Neutrophils # (1.3-7.7) k/uL Lymphocytes # (1.0-4.8) k/uL Monocytes # (0-1.0) k/uL Eosinophils # (0-0.7) k/uL Basophils # (0-0.2) k/uL Hypochromasia Poikilocytosis Anisocytosis Macrocytosis Sample Site ABG pH (7.35-7.45) ABG pCO2 (35-45) mmHg ABG pO2 (83-108) mmHg ABG HCO3 (21-25) mmol/L ABG Total CO2 (19-24) mmol/L ABG O2 Saturation (94-97) % ABG Base Excess mmol/L Gaston Test FiO2 % Sodium (137-145) mmol/L Potassium (3.5-5.1) mmol/L Chloride (98-107) mmol/L Carbon Dioxide (22-30) mmol/L Anion Gap mmol/L BUN (9-20) mg/dL Creatinine (0.66-1.25) mg/dL Est GFR (CKD-EPI)AfAm (>60 ml/min/1.73 sqM) Est GFR (CKD-EPI)NonAf (>60 ml/min/1.73 sqM) Glucose (74-99) mg/dL POC Glucose (mg/dL) (75-99) mg/dL POC Glu Principal Electrical Engineer ID Osmolality (280-301) mosm/kg Calcium (8.4-10.2) mg/dL Magnesium (1.6-2.3) mg/dL Total Bilirubin (0.2-1.3) mg/dL AST (17-59) U/L ALT (4-49) U/L Alkaline Phosphatase (38-126) U/L Troponin I (0.000-0.034) ng/mL NT-Pro-B Natriuret Pep pg/mL Total Protein (6.3-8.2) g/dL Albumin (3.5-5.0) g/dL Salicylates mg/dL Urine Opiates Screen Not Detected (NotDetected) Ur Oxycodone Screen Not Detected (NotDetected) Urine Methadone Screen Not Detected (NotDetected) Ur Propoxyphene Screen Not Detected (NotDetected) Acetaminophen ug/mL Ur Barbiturates Screen Not Detected (NotDetected) U Tricyclic Antidepress Not Detected (NotDetected) Ur Phencyclidine Scrn Not Detected (NotDetected) Ur Amphetamines Screen Not Detected (NotDetected) U Methamphetamines Scrn Not Detected (NotDetected) U Benzodiazepines Scrn Not Detected (NotDetected) Urine Cocaine Screen Not Detected (NotDetected) U Marijuana (THC) Screen Detected H (NotDetected) Serum Alcohol mg/dL Critical Care Time Critical Care Time: Yes Total Critical Care Time: 33 Disposition Clinical Impression: Respiratory failure, Encephalopathy Disposition: ADMITTED IP TO THIS HOSP Condition: Critical Referrals: Lorne Washington MD [Primary Care Provider] - 1-2 days
[2021-03-29 21:18] LABS: Calcium 9.2 mg/dL (8.4-10.2); Potassium 3.5 mmol/L (3.5-5.1); Total Bilirubin 0.3 mg/dL (0.2-1.3); Total Protein 5.8 g/dL (6.3-8.2)
--- NOTE | 2021-03-29 21:20 | CT ---
EXAMINATION TYPE: CT brain wo con for TPA DATE OF EXAM: 03/29/2021 COMPARISON: None HISTORY: TPA CT DLP: 1322.6 mGycm Automated exposure control for dose reduction was used. Ventricles have normal size. There is no mass effect nor midline shift. There is no sign of intracran ial hemorrhage. Calvarium is intact. Skull base is intact. There is normal aeration of the mastoid si nuses. IMPRESSION: Negative unenhanced head CT scan. Minimal right maxillary sinus mucus retention cysts.
--- NOTE | 2021-03-29 21:25 | XR ---
EXAMINATION TYPE: XR chest 1V portable DATE OF EXAM: 03/29/2021 COMPARISON: 03/26/2021 HISTORY: Altered mental status. TECHNIQUE: FINDINGS: There is some mild coarsening of interstitial markings. There is no heart failure. There is no pleural effusion. There are chest leads. Thoracic aorta is atheromatous. IMPRESSION: Interstitial mild pulmonary infiltrates appear new compared to old exam.. Appearance is n onspecific.
[2021-03-29 21:32] LABS: Anisocytosis Slight; Basophils # (A) 0.1 k/uL (0-0.2); Basophils % (A) 1 %; Eosinophils # (A) 0.5 k/uL (0-0.7); Eosinophils % (A) 5 %; HCT 25.1 % (39.0-53.0); HGB 8.3 gm/dL (13.0-17.5); Hypochromasia Slight; Lymphocytes # (A) 1.7 k/uL (1.0-4.8); Lymphocytes % (A) 17 %; MCH 31.3 pg (25.0-35.0); MCHC 33.1 g/dL (31.0-37.0); MCV 94.6 fL (80.0-100.0); Macrocytosis Slight; Monocytes # (A) 0.7 k/uL (0-1.0); Monocytes % (A) 7 %; Neutrophils # (A) 7.2 k/uL (1.3-7.7); Neutrophils % (A) 70 %; Platelet Count 696 k/uL (150-450); Poikilocytosis Moderate; RBC 2.65 m/uL (4.30-5.90); RDW 17.7 % (11.5-15.5); WBC 10.4 k/uL (3.8-10.6)
--- NOTE | 2021-03-29 21:33 | CT ---
EXAMINATION TYPE: CT angio head neck DATE OF EXAM: 03/29/2021 COMPARISON: None HISTORY: Neuro deficits. CT DLP: mGycm Automated exposure control for dose reduction was used. CONTRAST: Images obtained from the aortic arch to the vertex of the brain with IV contrast Omnipaque. There is normal branching pattern of the great vessels on the aortic arch. There is arterial flow in the common internal and external carotid arteries bilaterally. There is moderate plaque formation at the left carotid artery bifurcation. Exam is limited by motion. There is arterial flow in both verteb ral arteries. There is estimated 50% stenosis in the proximal left internal carotid artery. There is approximately 25% stenosis proximal right internal carotid artery. I see no evidence of carotid or ve rtebral artery aneurysm or dissection. There is arterial flow in the anterior middle and posterior cerebral arteries. Exam limited by motion . I see no mass effect. There is no evidence of intracranial aneurysm or neovascularity. There is nor mal enhancement of the venous sinuses. IMPRESSION: Mild plaque formation at the carotid artery bifurcations and no evidence of hemodynamic stenosis. Limited angiographic evaluation of the brain. No demonstrated significant abnormality.
[2021-03-29 21:45] LABS: Acetaminophen <10.0 ug/mL; Salicylate <1.0 mg/dL
[2021-03-29] MEDS ORDERED: ETOMIDATE 2 MG/ML 10 ML VIAL IVP STA (21:45)
[2021-03-29] MEDS ORDERED: ROCURONIUM 10 MG/ML (5 ML VIAL) IV STA ×2 (21:47→22:47)
[2021-03-29] MEDS ORDERED: FUROSEMIDE 10 MG/ML 4 ML VIAL IV STA (21:52)
[2021-03-29] MEDS ORDERED: CEFEPIME 2 GM in SODIUM CHLORIDE 0.9% 100 ML IVPB STA (21:54)
[2021-03-29] MEDS ORDERED: VANCOMYCIN IV PER PHARMACY 1 EACH MISC MISCELLANE PRN (21:54)
[2021-03-29] MEDS ORDERED: VANCOMYCIN 1,750 MG in SODIUM CHLORIDE 0.9% 500 ML 500 ML IVPB STA (21:56)
[2021-03-29 22:05] LABS: ABG HCO3 26 mmol/L (21-25); ABG Oxygen Saturation 97.3 % (94-97); ABG PCO2 55 mmHg (35-45); ABG PH 7.28 (7.35-7.45); ABG PO2 114 mmHg (83-108); ABG TCO2 28 mmol/L (19-24); Allen Test Performed? Yes
[2021-03-29 22:05] LABS: Alcohol <10 mg/dL
[2021-03-29 22:37] LABS: Amphetamine Screen,Urine Not Detected (NotDetected); Barbiturate Screen,Urine Not Detected (NotDetected); Benzodiazepines Screen,Urine Not Detected (NotDetected); Cocaine Screen,Urine Not Detected (NotDetected); Methadone Screen, Urine Not Detected (NotDetected); Opiate Screen,Urine Not Detected (NotDetected); Oxycodone Screen, Urine Not Detected (NotDetected); Phencyclidine Screen,Urine Not Detected (NotDetected); Tricyclic Antidepressant,Urine Not Detected (NotDetected); Urn Cannabinoid Scrn Detected (NotDetected)
--- NOTE | 2021-03-29 22:37 | XR ---
EXAMINATION TYPE: XR chest 1V portable DATE OF EXAM: 03/29/2021 COMPARISON: Today HISTORY: Respiratory failure TECHNIQUE: Single view FINDINGS: Endotracheal tube is 4 cm from the jonlele. There is nasogastric tube looped in the stomach. There is some coarse pulmonary interstitial infiltrates. There are chest leads. Heart appears slight ly enlarged. IMPRESSION: Pulmonary interstitial infiltrates or the same or slightly increased compared to exam one hour ago.
[2021-03-29] MEDS ORDERED: NALOXONE 0.4 MG/ML 1 ML VIAL IV PRN (23:00)
[2021-03-29] MEDS: SODIUM CHLORIDE 0.9% 1,000 ML IV SCH (23:05)
[2021-03-29] MEDS ORDERED: ALBUTEROL NEBULIZED 2.5 MG/3 ML INHALATION STA (23:12)
[2021-03-29] MEDS ORDERED: IPRATROPIUM 0.5 MG/2.5 ML NEBU INHALATION STA (23:12)
[2021-03-29] MEDS ORDERED: DEXAMETHASONE SOD PHOSPHATE 10 MG/ML 1 ML VIAL IV STA (23:12)
[2021-03-30 00:04] LABS: Prothrombin Time 10.8 sec (9.0-12.0)
[2021-03-30 00:23] LABS: Partial Thromboplastin Time 19.9 sec (22.0-30.0)
[2021-03-30 00:48] LABS: Glucose,Whole Blood 251 mg/dL (75-99)
[2021-03-30 03:07] LABS: Anisocytosis Slight; Basophils % (A) 0 %; Eosinophils % (A) 0 %; HCT 24.3 % (39.0-53.0); HGB 7.9 gm/dL (13.0-17.5); Hypochromasia Moderate; Lymphocytes # (A) 0.6 k/uL (1.0-4.8); Lymphocytes % (A) 6 %; MCH 31.2 pg (25.0-35.0); MCHC 32.4 g/dL (31.0-37.0); MCV 96.2 fL (80.0-100.0); Macrocytosis Slight; Monocytes # (A) 0.4 k/uL (0-1.0); Monocytes % (A) 3 %; Neutrophils # (A) 9.6 k/uL (1.3-7.7); Neutrophils % (A) 90 %; Platelet Count 667 k/uL (150-450); Poikilocytosis Slight; RBC 2.53 m/uL (4.30-5.90); RDW 17.2 % (11.5-15.5); WBC 10.7 k/uL (3.8-10.6)
[2021-03-30 03:13] LABS: Albumin 2.9 g/dL (3.5-5.0); Calcium 8.8 mg/dL (8.4-10.2); Potassium 3.8 mmol/L (3.5-5.1); Total Bilirubin 0.2 mg/dL (0.2-1.3); Total Protein 5.7 g/dL (6.3-8.2)
[2021-03-30 06:14] LABS: ABG Base Excess 0.7 mmol/L; ABG HCO3 25 mmol/L (21-25); ABG PCO2 41 mmHg (35-45); ABG PO2 166 mmHg (83-108); ABG TCO2 27 mmol/L (19-24); Allen Test Performed? Yes
[2021-03-30] MEDS: SODIUM CHLORIDE 0.9% 1,000 ML IV SCH ×2 (07:10→19:03)
[2021-03-30] MEDS ORDERED: CEFEPIME 2 GM in SODIUM CHLORIDE 0.9% 100 ML IVPB SCH (09:00)
[2021-03-30] MEDS ORDERED: PANTOPRAZOLE 40 MG/10 ML VIAL IVP SCH (09:00)
--- NOTE | 2021-03-30 09:26 | P.CNPUL ---
<Delisa Grover M - Last Filed: 03/30/21 09:15> History of Present Illness Consult date: 03/30/21 Requesting physician: Aba Scherer Reason for consult: other Chief complaint: Altered Mental status History of present illness: 70-year-old white male patient who was recently hospitalized for anemia related to lower GI bleeding, and patient underwent endoscopic evaluation including EGD and colonoscopy during his admission. EGD done by Dr. Clark was reported as unremarkable, colonoscopy revealed evidence of diverticulitis. And a GI bleeding was to be diverticular in nature, patient did require transfusion with 2 units of packed red blood cells during his previous admission. Has a past medical history of hypertension, hyperlipidemia, EtOH use, COPD, history of prostate cancer status post radiation treatment, splenectomy and the circumstances of the splenectomy are unclear, former smoker, and patient curr [facility] does still use marijuana. He was just discharged home on 03/28/2021, on oral antibiotics including Flagyl and Keflex. His hemoglobin at discharge was 7.9. 03/29/2021 patient was brought in to the emergency department per EMS for evaluation of unresponsiveness. Apparently he was found by his neighbor unresponsive. Patient was given 1 mg of Narcan per EMS staff with no response, patient had a normal blood sugar. Brain CT was negative. CT brain angiography shows mild plaque formation of the carotid artery bifurcations however no hemodynamic stenosis. X-ray showed interstitial mild pulmonary infiltrates. Lab work showed normal white count of 10.4, hemoglobin is 8.3 which was actually improved since his discharge, platelets 696, sodium is 141, potassium 3.5, chloride is 108, BUN was 9, creatinine was 1.45, LFTs are within normal limits, ammonia level 13, troponin was negative at 0.013, BNP was 407, drug screen was only positive for marijuana, serum alcohol level is less than 10, salicylates less than 1, and Tylenol level was less than 10. he was checked for COVID-19, and influenza and RSV and she was negative. EKG showed sinus tachycardia, with possibility of prolongation of QT interval. In view of significantly altered mental status patient was intubated and placed on mechanical ventilation. Patient's blood gas showed pO2 of 114, pCO2 55, and pH of 7.28 prior to intubation, this was done and FiO2 100%. he was empirically started on antibiotics including cefepime and vancomycin. Sputum has been collected and sent, we will obtain a set of blood cultures this morning, this morning he remains on intubated and sedated, on assist-control mode of ventilation with a rate of 20, tidal line was 400, FiO2 of 60% and PEEP of 7, this morning's blood gas shows pO2 166, CO2 41, and pH of 7.4 and subsequently his FiO2 was dropped down to 40% and PEEP was down to 5. He is on 0.9 normal saline at a rate of 1:30 per hour, Diprivan and is currently a 60 mics per kilo per minute. Earlier when sedation was off patient apparently was extremely agitated and tachypneic, however not following any command and not being purposeful. He was placed back on sedation, no seizure activity noted, neurology consultation has been requested and pending, his chest x-ray and labs have been reviewed, no evidence of GI bleeding, hemodynamically stable, he is in sinus mechanism, no fevers overnight. Review of Systems All systems: negative Constitutional: Denies chills, Denies fever Eyes: denies blurred vision, denies pain Ears, nose, mouth and throat: Denies headache, Denies sore throat Cardiovascular: Denies chest pain, Denies shortness of breath Respiratory: Denies cough Gastrointestinal: Denies abdominal pain, Denies diarrhea, Denies nausea, Denies vomiting Musculoskeletal: Denies myalgias Integumentary: Denies pruritus, Denies rash Neurological: Reports change in mentation, Denies numbness, Denies weakness Psychiatric: Denies anxiety, Denies depression Endocrine: Denies fatigue, Denies weight change Past Medical History Past Medical History: Cancer, COPD, Hyperlipidemia, Hypertension Additional Past Medical History / Comment(s): prostate cancer History of Any Multi-Drug Resistant Organisms: None Reported Past Surgical History: Heart Catheterization, Hernia Repair Additional Past Surgical History / Comment(s): radiation on prostate, spleenectomy, unguinal blateral Past Anesthesia/Blood Transfusion Reactions: No Reported Reaction Past Psychological History: No Psychological Hx Reported Smoking Status: Former smoker Past Alcohol Use History: Occasional Past Drug Use History: Marijuana Additional Drug Use History / Comment(s): CURRENT MARIJUANA USE - Past Family History Father Family Medical History: Diabetes Mellitus Medications and Allergies Home Medications Medication Instructions Recorded Confirmed Type Albuterol Nebulized [Ventolin 2.5 mg INHALATION RT-BID 06/05/19 06/17/21 History Nebulized] Budesonide/Formoterol Fumarate 2 puff INHALATION RT-BID 03/17/19 03/29/21 History [Symbicort 160-4.5 Mcg Inhaler] Calcium Carbonate [Calcium] 600 mg PO DAILY 03/17/19 03/29/21 History Cholecalciferol [Vitamin D3 (25 1,000 unit PO DAILY 03/17/19 03/29/21 History Mcg = 1000 Iu)] Multivitamins, Thera [Multivitamin 1 tab PO DAILY 03/17/19 03/29/21 History (formulary)] [place]-3 Fatty Acids/Fish Oil [Fish 1 cap PO DAILY 03/17/19 03/29/21 History Oil 1,000 mg Softgel] Atorvastatin [Lipitor] 20 mg PO HS 03/24/21 03/29/21 History amLODIPine [Norvasc] 10 mg PO DAILY 03/24/21 03/29/21 History calcium polycarbophiL [Fibercon] 625 mg PO DAILY 03/24/21 03/29/21 History Acetaminophen Tab [Tylenol] 650 mg PO Q6HR PRN tab 03/28/21 03/29/21 Rx Cefuroxime Axetil [Ceftin] 500 mg PO BID 10 Days #20 tab 03/28/21 03/29/21 Rx Pantoprazole Sodium [Protonix] 40 mg PO DAILY #30 tablet. 03/28/21 03/29/21 Rx metroNIDAZOLE [Flagyl] 500 mg PO Q8HR 10 Days #30 tab 03/28/21 03/29/21 Rx Allergies Allergy/AdvReac Type Severity Reaction Status Date / Time No Known Allergies Allergy Verified 03/29/21 21:28 Physical Exam Vitals: Vital Signs Temp Pulse Resp BP Pulse Ox 03/30/21 09:00 81 20 91/63 97 03/30/21 08:30 85 20 91/60 97 03/30/21 08:00 98.4 F 85 19 100/70 97 03/30/21 07:30 90 24 95/64 95 03/30/21 07:00 81 9 L 98/67 97 03/30/21 06:30 84 23 94/65 97 03/30/21 06:00 83 9 L 92/63 99 06/18/21 05:30 85 24 92/64 99 03/30/21 05:00 86 21 94/66 98 03/30/21 04:30 87 25 H 101/66 99 03/30/21 04:00 98.8 F 89 22 93/64 97 03/30/21 03:30 94 24 94/67 98 03/30/21 03:00 96 27 H 99/66 97 03/30/21 02:50 97 26 H 99/66 97 03/30/21 02:40 98 26 H 99/66 97 03/30/21 02:30 99 25 H 100/66 96 03/30/21 02:20 101 H 23 100/66 97 03/30/21 02:10 103 H 30 H 100/66 96 03/30/21 02:00 103 H 28 H 102/63 96 03/30/21 01:50 104 H 28 H 102/63 96 03/30/21 01:40 105 H 29 H 102/63 96 03/30/21 01:30 108 H 28 H 109/61 96 03/30/21 01:20 110 H 27 H 109/61 96 03/30/21 01:10 113 H 27 H 109/61 95 03/30/21 01:00 98.6 F 114 H 28 H 108/75 95 03/30/21 00:52 125 H 19 114/73 95 03/30/21 00:50 118 H 27 H 108/75 95 03/30/21 00:05 121 H 27 H 03/30/21 00:00 124 H 25 H 94/74 95 03/29/21 23:24 146 H 26 H 03/29/21 23:00 147 H 32 H 160/100 92 L 03/29/21 22:30 146 H 20 179/109 94 L 03/29/21 22:00 156 H 23 191/98 96 03/29/21 21:50 118 H 26 H 155/100 97 03/29/21 21:35 117 H 25 H 154/101 94 L 03/29/21 21:20 120 H 25 H 138/107 95 03/29/21 21:05 115 H 27 H 147/83 97 03/29/21 20:50 116 H 30 H 131/96 100 03/29/21 20:48 97.5 F L 115 H 30 H 131/96 97 03/29/21 20:47 30 H Intake and Output 03/29/21 03/30/21 03/30/21 22:59 06:59 14:59 Intake Total 991.025 240.51 Output Total 1720 160 Balance -728.975 80.51 Intake: IV 960 240 Sodium Chloride 0.9% 1, 960 240 000 ml @ 120 mls/hr IV . Q8H20M [facility] Rx#:[id number] Intake, IV Titration 31.025 0.51 Amount propofoL 1,000 mg In 31.025 0.51 Empty Bag 1 bag @ Titrate IV .Q0M [facility] Rx#: [id number] Output: Urine 1720 160 Other: Voiding Method Indwelling Catheter Indwelling Catheter Weight 108.862 kg 102 kg GENERAL EXAM: Sedated intubated 70-year-old white male on assist control mode of ventilation with FiO2 of 40%, and PEEP of 5 comfortable in no apparent distre ss. HEAD: Normocephalic/atraumatic. EYES: Normal reaction of pupils, equal size. Conjunctiva pink, sclera white. NOSE: Clear with pink turbinates. THROAT: No erythema or exudates. NECK: No masses, no JVD, no thyroid enlargement, no adenopathy. CHEST: No chest wall deformity. Symmetrical expansion. LUNGS: Equal air entry with no crackles, wheeze, rhonchi or dullness. CVS: Regular rate and rhythm, normal S1 and S2, no gallops, no murmurs, no rubs ABDOMEN: Soft, nontender. No hepatosplenomegaly, normal bowel sounds, no guarding or rigidity. Old scar on the abdomen from previous splenectomy EXTREMITIES: No clubbing, no edema, no cyanosis, 2+ pulses and upper and lower extremities. MUSCULOSKELETAL: Muscle strength and tone normal. SPINE: No scoliosis or deformity SKIN: No rashes CENTRAL NERVOUS SYSTEM: Sedated and intubated No focal deficits, tone is normal in all 4 extremities. Results - Laboratory Findings CBC and BMP: 03/30/21 02:02 03/30/21 02:02 ABG ABG pH 7.40 (7.35-7.45) 03/30/21 06:08 ABG pCO2 41 mmHg (35-45) 03/30/21 06:08 ABG pO2 166 mmHg (83-108) H 03/30/21 06:08 ABG O2 Saturation 99.0 % (94-97) H 03/30/21 06:08 PT/INR, D-dimer PT 10.8 sec (9.0-12.0) 03/29/21 23:24 INR 1.0 (<1.2) 03/29/21 23:24 Abnormal lab findings: Abnormal Labs 03/29/21 03/29/21 03/29/21 20:48 20:48 20:48 WBC RBC 2.65 L Hgb 8.3 L Hct 25.1 L RDW 17.7 H Plt Count 696 H Neutrophils # Lymphocytes # APTT ABG pH ABG pCO2 ABG pO2 ABG HCO3 ABG Total CO2 ABG O2 Saturation Chloride 108 H Creatinine 1.45 H Glucose 159 H POC Glucose (mg/dL) 179 H Total Protein 5.8 L Albumin 3.0 L U Marijuana (THC) Screen 03/29/21 03/29/21 03/29/21 22:00 22:04 23:24 WBC RBC Hgb Hct RDW Plt Count Neutrophils # Lymphocytes # APTT 19.9 L ABG pH 7.28 L ABG pCO2 55 H ABG pO2 114 H ABG HCO3 26 H ABG Total CO2 28 H ABG O2 Saturation 97.3 H Chloride Creatinine Glucose POC Glucose (mg/dL) Total Protein Albumin U Marijuana (THC) Screen Detected H 03/30/21 03/30/21 03/30/21 00:45 02:02 02:02 WBC 10.7 H RBC 2.53 L Hgb 7.9 L Hct 24.3 L RDW 17.2 H Plt Count 667 H Neutrophils # 9.6 H Lymphocytes # 0.6 L APTT ABG pH ABG pCO2 ABG pO2 ABG HCO3 ABG Total CO2 ABG O2 Saturation Chloride 108 H Creatinine 1.28 H Glucose 203 H POC Glucose (mg/dL) 251 H Total Protein 5.7 L Albumin 2.9 L U Marijuana (THC) Screen 03/30/21 06:08 WBC RBC Hgb Hct RDW Plt Count Neutrophils # Lymphocytes # APTT ABG pH ABG pCO2 ABG pO2 166 H ABG HCO3 ABG Total CO2 27 H ABG O2 Saturation 99.0 H Chloride Creatinine Glucose POC Glucose (mg/dL) Total Protein Albumin U Marijuana (THC) Screen - Diagnostic Findings Chest x-ray: report reviewed, image reviewed Additional studies: CT brain, angiography CT of the brain, EKG, echocardiogram, chest x-rays reviewed Assessment and Plan Plan: Assessment #1. Altered mental status, possibly related to toxic metabolic encephalopathy, patient was found unresponsive, blood gas reveals mild degree of acute hypercapnic respiratory failure, and hypoxia, acute kidney injury. Rule out possibility of CVA, possibility of encephalitis, and possibility of seizures, neurology consultation is pending. Tox screen was negative except for marijuana. Patient had no response to Narcan #2. Acute hypoxic and hypercapnic respiratory failure, possibly related to hypoventilation due to a central event, possibly CVA or seizures. Chest x-ray shows mild interstitial infiltrates, no leukocytosis, COVID-19 influenza RSV were negative. Covered with cefepime and vancomycin #3. Recent hospitalization for anemia related to lower GI bleeding that was determined to be diverticular in nature #4. History of EtOH use, serum alcohol level was less than 10 during this admission #5. History of COPD, severity of which is unknown at this time, not oxygen dependent at baseline #6. Hypertension #7. Hyperlipidemia #8. History of prostate cancer with previous history of radiation #9. History of splenectomy for unknown circumstances #10. Former smoker Plan: Today's chest x-ray labs reviewed Brain CT a CT angiography reviewed We will repeat brain CT without contrast today Will obtain EEG to rule out possibility of seizures Continue cefepime and vancomycin Procalcitonin level FiO2 is down to 40% and PEEP is down to 5 COPD is stable at this time, no sign of any exacerbation We'll proceed with sedation holiday to assess patient's mental status Neurology consultation is pending Hemodynamically patient is stable We'll send blood cultures Sputum cultures have been sent and pending Monitor for any sign of seizures We'll continue to closely follow in intensive care unit I performed a history & physical examination of the patient and discussed their management with my nurse practitioner, Delisa Grover. I reviewed the nurse practitioner's note and agree with the documented findings and plan of care. Lung sounds are positive for a few rhonchi. The findings and the impression was discussed with the patient. I attest to the documentation by the nurse practitioner. Time with Patient: Greater than 30 <Sunni Holman - Last Filed: 03/30/21 12:59> Physical Exam Vitals: Vital Signs Temp Pulse Resp BP Pulse Ox 03/30/21 12:30 97.8 F 79 20 103/70 96 03/30/21 12:00 93/64 03/30/21 11:30 82 18 92/64 97 03/30/21 11:00 84 20 108/62 98 03/30/21 10:30 93 20 107/73 97 03/30/21 10:00 80 17 106/70 98 03/30/21 09:30 78 18 93/64 99 03/30/21 09:00 81 20 91/63 97 03/30/21 08:30 85 20 91/60 97 03/30/21 08:00 98.4 F 85 19 100/70 97 03/30/21 07:30 90 24 95/64 95 03/30/21 07:00 81 9 L 98/67 97 03/30/21 06:30 84 23 94/65 97 03/30/21 06:00 83 9 L 92/63 99 03/30/21 05:30 85 24 92/64 99 03/30/21 05:00 86 21 94/66 98 03/30/21 04:30 87 25 H 101/66 99 03/30/21 04:00 98.8 F 89 22 93/64 97 03/30/21 03:30 94 24 94/67 98 03/30/21 03:00 96 27 H 99/66 97 03/30/21 02:50 97 26 H 99/66 97 03/30/21 02:40 98 26 H 99/66 97 03/30/21 02:30 99 25 H 100/66 96 03/30/21 02:20 101 H 23 100/66 97 03/30/21 02:10 103 H 30 H 100/66 96 03/30/21 02:00 103 H 28 H 102/63 96 03/30/21 01:50 104 H 28 H 102/63 96 03/30/21 01:40 105 H 29 H 102/63 96 03/30/21 01:30 108 H 28 H 109/61 96 03/30/21 01:20 110 H 27 H 109/61 96 03/30/21 01:10 113 H 27 H 109/61 95 03/30/21 01:00 98.6 F 114 H 28 H 108/75 95 03/30/21 00:52 125 H 19 114/73 95 03/30/21 00:50 118 H 27 H 108/75 95 03/30/21 00:05 121 H 27 H 03/30/21 00:00 124 H 25 H 94/74 95 03/29/21 23:24 146 H 26 H 03/29/21 23:00 147 H 32 H 160/100 92 L 03/29/21 22:30 146 H 20 179/109 94 L 03/29/21 22:00 156 H 23 191/98 96 03/29/21 21:50 118 H 26 H 155/100 97 03/29/21 21:35 117 H 25 H 154/101 94 L 03/29/21 21:20 120 H 25 H 138/107 95 03/29/21 21:05 115 H 27 H 147/83 97 03/29/21 20:50 116 H 30 H 131/96 100 03/29/21 20:48 97.5 F L 115 H 30 H 131/96 97 03/29/21 20:47 30 H Intake and Output 03/29/21 03/30/21 03/30/21 22:59 06:59 14:59 Intake Total 991.025 700.47 Output Total 1720 355 Balance -728.975 345.47 Intake: IV 960 600 Sodium Chloride 0.9% 1, 960 600 000 ml @ 120 mls/hr IV . Q8H20M [facility] Rx#:[id number] Intake, IV Titration 31.025 100.47 Amount propofoL 1,000 mg In 31.025 100.47 Empty Bag 1 bag @ Titrate IV .Q0M [facility] Rx#: [id number] Output: Urine 1720 355 Other: Voiding Method Indwelling Catheter Indwelling Catheter Weight 108.862 kg 102 kg 103.8 kg Results - Laboratory Findings CBC and BMP: 03/30/21 02:02 03/30/21 02:02 ABG ABG pH 7.40 (7.35-7.45) 03/30/21 06:08 ABG pCO2 41 mmHg (35-45) 03/30/21 06:08 ABG pO2 166 mmHg (83-108) H 03/30/21 06:08 ABG O2 Saturation 99.0 % (94-97) H 03/30/21 06:08 PT/INR, D-dimer PT 10.8 sec (9.0-12.0) 03/29/21 23:24 INR 1.0 (<1.2) 03/29/21 23:24 Abnormal lab findings: Abnormal Labs 03/29/21 03/29/21 03/29/21 20:48 20:48 20:48 WBC RBC 2.65 L Hgb 8.3 L Hct 25.1 L RDW 17.7 H Plt Count 696 H Neutrophils # Lymphocytes # APTT ABG pH ABG pCO2 ABG pO2 ABG HCO3 ABG Total CO2 ABG O2 Saturation Chloride 108 H Creatinine 1.45 H Glucose 159 H POC Glucose (mg/dL) 179 H Total Protein 5.8 L Albumin 3.0 L U Marijuana (THC) Screen 03/29/21 03/29/21 03/29/21 22:00 22:04 23:24 WBC RBC Hgb Hct RDW Plt Count Neutrophils # Lymphocytes # APTT 19.9 L ABG pH 7.28 L ABG pCO2 55 H ABG pO2 114 H ABG HCO3 26 H ABG Total CO2 28 H ABG O2 Saturation 97.3 H Chloride Creatinine Glucose POC Glucose (mg/dL) Total Protein Albumin U Marijuana (THC) Screen Detected H 03/30/21 03/30/21 03/30/21 00:45 02:02 02:02 WBC 10.7 H RBC 2.53 L Hgb 7.9 L Hct 24.3 L RDW 17.2 H Plt Count 667 H Neutrophils # 9.6 H Lymphocytes # 0.6 L APTT ABG pH ABG pCO2 ABG pO2 ABG HCO3 ABG Total CO2 ABG O2 Saturation Chloride 108 H Creatinine 1.28 H Glucose 203 H POC Glucose (mg/dL) 251 H Total Protein 5.7 L Albumin 2.9 L U Marijuana (THC) Screen 03/30/21 06:08 WBC RBC Hgb Hct RDW Plt Count Neutrophils # Lymphocytes # APTT ABG pH ABG pCO2 ABG pO2 166 H ABG HCO3 ABG Total CO2 27 H ABG O2 Saturation 99.0 H Chloride Creatinine Glucose POC Glucose (mg/dL) Total Protein Albumin U Marijuana (THC) Screen Assessment and Plan Plan: Altered mental status is currently under investigation. Consider CVA despite the initial workup. The patient will have a repeat computed tomography scan of the brain. We'll consult neurology. We'll lumbar puncture him if workup comes back negative. Attempt another sedation holiday following the CAT scan of the brain. Awaiting neurology consultation.
--- NOTE | 2021-03-30 09:57 | P.CRDCN ---
History of Present Illness History of present illness: HISTORY OF PRESENTING ILLNESS This is a pleasant 70-year-old male past medical history significant for hypertension, dyslipidemia and COPD. He follows in the office with Dr. Cha. We have been asked to see in consultation for prolonged QT. Noted to the hospital with altered mental status and respiratory distress. He underwent rapid sequence intubation and is currently maintained on mechanical ventilator in the intensive care unit. He apparently was found unresponsive at home by a neighbor. He had just been discharged from the hospital following GI bleeding where he underwent a colonoscopy that was essentially unremarkable. He did have several polypectomies. EKG revealed sinus tachycardia heart rate of 117 with a QT interval of 577 ms. Consistent with previous EKGs. Chest x-ray reveals a pulmonary interstitial infiltrate. He is currently being treated for suspected aspiration pneumonia. Laboratory data reviewed, WBC 10.7, hemoglobin 10.9, platelets 667, pH 7.4, pCO2 41, pO2 166, sodium 139, potassium 3.8, creatinine 1.28, ammonia 13, magnesium 1.7, cardiac enzymes negative 1, NT proBNP 407. Current daily cardiac medications include atorvastatin 20 mg daily and amlodipine 10 mg daily. He underwent an echocardiogram and previous admission revealing preserved LV systolic function with ejection fraction 55-60%. He underwent cardiac catheterization in 2019 revealing minimal nonobstructive coronary artery disease. REVIEW OF SYSTEMS At the time of my exam: Unable to obtain accurate review of systems secondary to mechanical ventilation. PHYSICAL EXAMINATION Blood pressure 91/63 heart rate 81 afebrile and maintaining oxygen saturation on mechanical ventilator. CONSTITUTIONAL: No apparent distress. HEENT: Head is normocephalic. Pupils are equal, round. Sclerae anicteric. Mucous membranes of the mouth are moist. No JVD. No carotid bruit. CHEST EXAMINATION: Lungs are clear to auscultation. No chest wall tenderness is noted on palpation or with deep breathing. HEART EXAMINATION: Regular rate and rhythm. S1, S2 heard. No murmurs, gallops or rub. ABDOMEN: Soft, nontender. Positive bowel sounds. EXTREMITIES: 2+ peripheral pulses, no lower extremity edema and no calf tenderness. NEUROLOGIC EXAMINATION: Sedated ASSESSMENT Altered mental status Metabolic encephalopathy Hypercapnic respiratory failure QT prolongation, chronic Hypertension Dyslipidemia COPD Anemia PLAN Avoid QT prolonging agents. Continue telemetry monitoring. We will not repeat an echocardiogram on this admission, he had one 03/27/2021 Thank you kindly for this consultation. Nurse Practitioner note has been reviewed, I agree with a documented findings and plan of care. Patient was seen and examined. Past Medical History Past Medical History: Cancer, COPD, Hyperlipidemia, Hypertension Additional Past Medical History / Comment(s): prostate cancer History of Any Multi-Drug Resistant Organisms: None Reported Past Surgical History: Heart Catheterization, Hernia Repair Additional Past Surgical History / Comment(s): radiation on prostate, spleenectomy, unguinal blateral Past Anesthesia/Blood Transfusion Reactions: No Reported Reaction Past Psychological History: No Psychological Hx Reported Smoking Status: Former smoker Past Alcohol Use History: Occasional Past Drug Use History: Marijuana Additional Drug Use History / Comment(s): CURRENT MARIJUANA USE - Past Family History Father Family Medical History: Diabetes Mellitus Medications and Allergies Home Medications Medication Instructions Recorded Confirmed Type Albuterol Nebulized [Ventolin 2.5 mg INHALATION RT-BID 03/17/19 03/29/21 History Nebulized] Budesonide/Formoterol Fumarate 2 puff INHALATION RT-BID 03/17/19 03/29/21 History [Symbicort 160-4.5 Mcg Inhaler] Calcium Carbonate [Calcium] 600 mg PO DAILY 03/17/19 03/29/21 History Cholecalciferol [Vitamin D3 (25 1,000 unit PO DAILY 03/17/19 03/29/21 History Mcg = 1000 Iu)] Multivitamins, Thera [Multivitamin 1 tab PO DAILY 03/17/19 03/29/21 History (formulary)] [place]-3 Fatty Acids/Fish Oil [Fish 1 cap PO DAILY 03/17/19 03/29/21 History Oil 1,000 mg Softgel] Atorvastatin [Lipitor] 20 mg PO HS 03/24/21 03/29/21 History amLODIPine [Norvasc] 10 mg PO DAILY 03/24/21 03/29/21 History calcium polycarbophiL [Fibercon] 625 mg PO DAILY 03/24/21 03/29/21 History Acetaminophen Tab [Tylenol] 650 mg PO Q6HR PRN tab 03/28/21 03/29/21 Rx Cefuroxime Axetil [Ceftin] 500 mg PO BID 10 Days #20 tab 03/28/21 03/29/21 Rx Pantoprazole Sodium [Protonix] 40 mg PO DAILY #30 tablet. 03/28/21 03/29/21 Rx metroNIDAZOLE [Flagyl] 500 mg PO Q8HR 10 Days #30 tab 03/28/21 03/29/21 Rx Allergies Allergy/AdvReac Type Severity Reaction Status Date / Time No Known Allergies Allergy Verified 03/29/21 21:28 Physical Exam Vitals: Vital Signs Temp Pulse Resp BP Pulse Ox 03/30/21 09:00 81 20 91/63 97 03/30/21 08:30 85 20 91/60 97 03/30/21 08:00 98.4 F 85 19 100/70 97 03/30/21 07:30 90 24 95/64 95 03/30/21 07:00 81 9 L 98/67 97 03/30/21 06:30 84 23 94/65 97 03/30/21 06:00 83 9 L 92/63 99 03/30/21 05:30 85 24 92/64 99 03/30/21 05:00 86 21 94/66 98 03/30/21 04:30 87 25 H 101/66 99 03/30/21 04:00 98.8 F 89 22 93/64 97 03/30/21 03:30 94 24 94/67 98 03/30/21 03:00 96 27 H 99/66 97 03/30/21 02:50 97 26 H 99/66 97 03/30/21 02:40 98 26 H 99/66 97 03/30/21 02:30 99 25 H 100/66 96 03/30/21 02:20 101 H 23 100/66 97 03/30/21 02:10 103 H 30 H 100/66 96 03/30/21 02:00 103 H 28 H 102/63 96 03/30/21 01:50 104 H 28 H 102/63 96 03/30/21 01:40 105 H 29 H 102/63 96 03/30/21 01:30 108 H 28 H 109/61 96 03/30/21 01:20 110 H 27 H 109/61 96 03/30/21 01:10 113 H 27 H 109/61 95 03/30/21 01:00 98.6 F 114 H 28 H 108/75 95 03/30/21 00:52 125 H 19 114/73 95 03/30/21 00:50 118 H 27 H 108/75 95 03/30/21 00:05 121 H 27 H 03/30/21 00:00 124 H 25 H 94/74 95 03/29/21 23:24 146 H 26 H 03/29/21 23:00 147 H 32 H 160/100 92 L 03/29/21 22:30 146 H 20 179/109 94 L 03/29/21 22:00 156 H 23 191/98 96 03/29/21 21:50 118 H 26 H 155/100 97 03/29/21 21:35 117 H 25 H 154/101 94 L 03/29/21 21:20 120 H 25 H 138/107 95 03/29/21 21:05 115 H 27 H 147/83 97 03/29/21 20:50 116 H 30 H 131/96 100 03/29/21 20:48 97.5 F L 115 H 30 H 131/96 97 03/29/21 20:47 30 H Intake and Output 03/29/21 03/30/21 03/30/21 22:59 06:59 14:59 Intake Total 991.025 240.51 Output Total 1720 160 Balance -728.975 80.51 Intake: IV 960 240 Sodium Chloride 0.9% 1, 960 240 000 ml @ 120 mls/hr IV . Q8H20M [facility] Rx#:[id number] Intake, IV Titration 31.025 0.51 Amount propofoL 1,000 mg In 31.025 0.51 Empty Bag 1 bag @ Titrate IV .Q0M [facility] Rx#: [id number] Output: Urine 1720 160 Other: Voiding Method Indwelling Catheter Indwelling Catheter Weight 108.862 kg 102 kg Results 03/30/21 02:02 03/30/21 02:02 Cardiac Enzymes 03/29/21 03/29/21 03/30/21 Range/Units 20:48 20:48 02:02 AST 39 42 (17-59) U/L Troponin I 0.013 (0.000-0.034) ng/mL Coagulation 03/29/21 Range/Units 23:24 PT 10.8 (9.0-12.0) sec APTT 19.9 L (22.0-30.0) sec CBC 03/29/21 03/30/21 Range/Units 20:48 02:02 WBC 10.4 10.7 H (3.8-10.6) k/uL RBC 2.65 L 2.53 L (4.30-5.90) m/uL Hgb 8.3 L 7.9 L (13.0-17.5) gm/dL Hct 25.1 L 24.3 L (39.0-53.0) % Plt Count 696 H 667 H (150-450) k/uL Comprehensive Metabolic Panel 03/29/21 03/30/21 Range/Units 20:48 02:02 Sodium 141 139 (137-145) mmol/L Potassium 3.5 3.8 (3.5-5.1) mmol/L Chloride 108 H 108 H (98-107) mmol/L Carbon Dioxide 24 23 (22-30) mmol/L BUN 9 10 (9-20) mg/dL Creatinine 1.45 H 1.28 H (0.66-1.25) mg/dL Glucose 159 H 203 H (74-99) mg/dL Calcium 9.2 8.8 (8.4-10.2) mg/dL AST 39 42 (17-59) U/L ALT 26 31 (4-49) U/L Alkaline Phosphatase 63 68 (38-126) U/L Total Protein 5.8 L 5.7 L (6.3-8.2) g/dL Albumin 3.0 L 2.9 L (3.5-5.0) g/dL Current Medications Generic Name Dose Route Start Last Admin Trade Name Freq PRN Reason Stop Dose Admin Albuterol/Ipratropium 3 ml 03/30/21 13:00 Ipratropium-Albuterol 3 Ml Neb INHALATION RT-TID ISHAN Vancomycin HCl 1,750 mg/ 500 mls @ 167 mls/hr 03/30/21 23:00 Sodium Chloride IVPB Q24H ISHAN Sodium Chloride 1,000 mls @ 120 mls/hr 03/29/21 23:00 03/30/21 07:10 Saline 0.9% IV 120 mls/hr .Q8H20M ISHAN Administration Propofol 1,000 mg/ IV Solution 100 mls @ 0 mls/hr 03/29/21 23:45 03/30/21 07:12 IV 50 mcg/kg/min .Q0M ISHAN 30.6 mls/hr Administration Protocol Titrate Cefepime HCl 2 gm/ Sodium 100 mls @ 25 mls/hr 03/30/21 09:00 03/30/21 09:44 Chloride IVPB 25 mls/hr Q12HR ISHAN Administration Naloxone HCl 2 mg 03/29/21 20:46 03/29/21 20:47 Naloxone 0.4 Mg/Ml 10 Ml Vial IVP 2 mg ONCE PRN Administration Opioid Reversal Naloxone HCl 0.2 mg 03/29/21 23:00 Naloxone 0.4 Mg/Ml 1 Ml Vial IV Q2M PRN Opioid Reversal Pantoprazole Sodium 40 mg 03/30/21 09:00 03/30/21 09:44 Pantoprazole 40 Mg/10 Ml Vial IVP 40 mg DAILY ISHAN Administration Intake and Output 03/29/21 03/30/21 03/30/21 22:59 06:59 14:59 Intake Total 991.025 240.51 Output Total 1720 160 Balance -728.975 80.51 Intake: IV 960 240 Sodium Chloride 0.9% 1, 960 240 000 ml @ 120 mls/hr IV . Q8H20M [facility] Rx#:[id number] Intake, IV Titration 31.025 0.51 Amount propofoL 1,000 mg In 31.025 0.51 Empty Bag 1 bag @ Titrate IV .Q0M [facility] Rx#: [id number] Output: Urine 1720 160 Other: Voiding Method Indwelling Catheter Indwelling Catheter Weight 108.862 kg 102 kg 03/30/21 02:02 03/30/21 02:02
--- NOTE | 2021-03-30 10:28 | XR ---
EXAMINATION TYPE: XR chest 1V portable DATE OF EXAM: 03/30/2021 COMPARISON: NONE HISTORY: ET tube placement TECHNIQUE: Single frontal view of the chest is obtained. FINDINGS: ET tube approximately 3.9 cm from the jonelle. NG tube seen. There is bilateral infiltrate and small effusion with diffuse interstitial pattern. No pneumothorax. IMPRESSION: Bilateral infiltrate and small effusion correlate for central venous congestion.
[2021-03-30 12:18] VITALS: BMI 36.9
[2021-03-30 12:37] VITALS: TEMP 97.8
--- NOTE | 2021-03-30 12:49 | CT ---
EXAMINATION TYPE: CT brain wo con DATE OF EXAM: 03/30/2021 COMPARISON: 03/29/2021 INDICATION: Patient intubated at time of scan. Mental status changes. DLP: 1133.4 mGycm, Automated exposure control for dose reduction was used. CONTRAST: None CT of the brain is performed utilizing 3 mm thick sections through the posterior fossa and 3 mm thick sections through the remaining calvarium. Study is performed within 24 hours of arrival to the hosp ital. No abnormal hyperdensity is present to suggest an acute intracranial hemorrhage. No mass lesion is evident. Large acute infarct is present to the left frontal lobe extending throughout the left parietal lobe e xtending into the lateral occipital lobe. There is effacement of sulci which is an interval change. T here is effacement of the left lateral ventricle. Third ventricle appears slitlike. No temporal horn dilatation to suggest obstructive hydrocephalus is evident at this time. There is mild shift towards the right of midline approximately 0.3 cm. Ventricles and sulci are effaced on the left. There is preservation of sulci on the right. Lateral ve ntricle is slightly compressed over the interval. Nominal mucosal thickening is within the right ethmoid air cells which can be related to intubation. Endotracheal tube is evident on the curve cleaner image. IMPRESSIONS: 1. Large left side infarct including the left frontal left parietal lobes in the medial portion of the left occipital lobe. This has mild subfalcine herniation measuring 0.3 cm. 2. No hydrocephalus at this time. A [place] level critical message alert has been initiated for Savanah Allison MD via the [employer] on 03/30/2021 12:47 PM. This message alert has been sent to Savanah Allison MD vi a the preferences provided by the clinician for the receipt of Radiology Critical Findings. Message I D [id number].
[2021-03-30] MEDS ORDERED: IPRATROPIUM-ALBUTEROL 3 ML NEB INHALATION SCH (13:00)
[2021-03-30] MEDS ORDERED: MANNITOL 20% IV ONE (13:19)
[2021-03-30] MEDS ORDERED: SALINE IV ONE (13:19)
[2021-03-30] MEDS ORDERED: MANNITOL 20% IV SCH (13:30)
[2021-03-30] MEDS ORDERED: SALINE IV SCH (13:30)
[2021-03-30] MEDS ORDERED: MANNITOL IV SCH (13:30)
--- NOTE | 2021-03-30 15:38 | P.CNNES ---
History of Present Illness Consult date: 03/30/21 Requesting physician: Aba Scherer Reason for Consult: Encephalopathy History of Present Illness: Patient is a 70-year-old male came to the hospital by ambulance yesterday at 8:42 PM with altered mental status. Patient not able to provide any history. Per EMS flow sheet, they were activated at 8:03 PM. When they arrived, patient was laying supine on living room floor. Patient's friend has mentioned that he came over and found him unresponsive on the floor. Patient's son stated he last talked to patient around 3 PM in the afternoon and that he seemed confused at that time. Patient's friend reported that apparently he uses a lot of marijuana and does drink alcohol but stated he has not drank in a few days. Patient's son stated that he would not be surprised if patient use some other recreational luz maria g. Patient has a recent history of bleed/anemia and was just discharged from the [facility]. On the examination patient was unresponsive with GCS 7 minimally alert to pain, not following commands, skin was pale and diaphoretic. Pupils were 2 mm round and reacting. Patient's breathing is regular with intermittent periods of apnea. Patient has a small amount of blood mucus on his nose. No obvious signs of trauma. EKG shows sinus tachycardia with occasional PVC. Patient's vitals at the scene was blood pressure 121/76, pulse rate 113, red saturation 97% and blood sugar 200. Temperature 97.7 degree. Patient's blood test shows WBC 10.7 hemoglobin 7.9, platelets 667. PT/PTT normal. ABG showed pH 7.28, pCO2 55, pO2 114. Electrolytes are normal, BUN 9, creatinine 1.45. Hepatic panel normal, ammonia negative. Troponin negative. Urine drug screen positive for marijuana. Blood alcohol level negative. Tylenol and salicylate levels negative. Influenza and evans virus PCR negative. Patient's B12 982 on 11/23/2019, TSH 3.51. Hemoglobin A1c 6.0 on 11/23/2019. Patient's computed tomography scan of head negative. Minimal right maxillary sinus mucosal retention cyst. Chest x-ray showed interstitial mild pulmonary infiltrates appeared new compared to old exam. CTA of head and neck showed mild plaque formation at the carotid artery bifurcations and no evidence of hemodynamic stenosis. Limited angiographic evaluation of the brain. No demonstrated significant abnormality. EKG shows sinus tachycardia with occasional PVCs. 2-D echo from 03/27/2021 shows mild concentric LVH, EF is between 55-60%. Left atrium is mildly dilated. Most recent chest x-ray from today showed bilateral infiltrates and small effusion correlate for central venous congestion. Patient was given Narcan 2 mg without any improvement. Stroke code was also activated in the ED. Patient's NIH stroke scale was 13. Stroke neurologist Dr. Fragoso was contacted by ED staff and patient was not a candidate for TPA, as Patient's last known well was uncertain, > 4.5 hours. Please refer to ED note for details. Patient was intubated in the ER due to altered mental status. Patient at this time is on propofol 50 g infusion. Per nurse report, whenever the sedation is decreased down to 30 or 15, he moves arms and legs equally. He developed erratic breathing therefore has to be placed back on sedation. Per son report, yesterday when he checked on him, patient was having an anxiety attack, appeared confused. He couldn't figure out the food stamps. Review of Systems ROS unobtainable: due to endotracheal tube, due to mental status Past Medical History Past Medical History: Cancer, COPD, Hyperlipidemia, Hypertension Additional Past Medical History / Comment(s): prostate cancer History of Any Multi-Drug Resistant Organisms: None Reported Past Surgical History: Heart Catheterization, Hernia Repair Additional Past Surgical History / Comment(s): radiation on prostate, spleenectomy, unguinal blateral Past Anesthesia/Blood Transfusion Reactions: No Reported Reaction Past Psychological History: No Psychological Hx Reported Smoking Status: Former smoker Past Alcohol Use History: Occasional Past Drug Use History: Marijuana Additional Drug Use History / Comment(s): CURRENT MARIJUANA USE - Past Family History Father Family Medical History: Diabetes Mellitus Medications and Allergies Home Medications Medication Instructions Recorded Confirmed Type Albuterol Nebulized [Ventolin 2.5 mg INHALATION RT-BID 03/17/19 03/29/21 History Nebulized] Budesonide/Formoterol Fumarate 2 puff INHALATION RT-BID 03/17/19 03/29/21 History [Symbicort 160-4.5 Mcg Inhaler] Calcium Carbonate [Calcium] 600 mg PO DAILY 03/17/19 03/29/21 History Cholecalciferol [Vitamin D3 (25 1,000 unit PO DAILY 03/17/19 03/29/21 History Mcg = 1000 Iu)] Multivitamins, Thera [Multivitamin 1 tab PO DAILY 03/17/19 03/29/21 History (formulary)] [place]-3 Fatty Acids/Fish Oil [Fish 1 cap PO DAILY 03/17/19 03/29/21 History Oil 1,000 mg Softgel] Atorvastatin [Lipitor] 20 mg PO HS 03/24/21 03/29/21 History amLODIPine [Norvasc] 10 mg PO DAILY 03/24/21 03/29/21 History calcium polycarbophiL [Fibercon] 625 mg PO DAILY 03/24/21 03/29/21 History Acetaminophen Tab [Tylenol] 650 mg PO Q6HR PRN tab 03/28/21 03/29/21 Rx Cefuroxime Axetil [Ceftin] 500 mg PO BID 10 Days #20 tab 03/28/21 03/29/21 Rx Pantoprazole Sodium [Protonix] 40 mg PO DAILY #30 tablet. 03/28/21 03/29/21 Rx metroNIDAZOLE [Flagyl] 500 mg PO Q8HR 10 Days #30 tab 03/28/21 03/29/21 Rx Allergies Allergy/AdvReac Type Severity Reaction Status Date / Time No Known Allergies Allergy Verified 03/29/21 21:28 Physical Examination - Vital Signs Vital Signs: Vital Signs Temp Pulse Resp BP Pulse Ox 03/30/21 10:00 80 17 106/70 98 03/30/21 09:30 78 18 93/64 99 03/30/21 09:00 81 20 91/63 97 03/30/21 08:30 85 20 91/60 97 03/30/21 08:00 98.4 F 85 19 100/70 97 03/30/21 07:30 90 24 95/64 95 03/30/21 07:00 81 9 L 98/67 97 03/30/21 06:30 84 23 94/65 97 03/30/21 06:00 83 9 L 92/63 99 03/30/21 05:30 85 24 92/64 99 03/30/21 05:00 86 21 94/66 98 03/30/21 04:30 87 25 H 101/66 99 03/30/21 04:00 98.8 F 89 22 93/64 97 03/30/21 03:30 94 24 94/67 98 03/30/21 03:00 96 27 H 99/66 97 03/30/21 02:50 97 26 H 99/66 97 03/30/21 02:40 98 26 H 99/66 97 03/30/21 02:30 99 25 H 100/66 96 03/30/21 02:20 101 H 23 100/66 97 03/30/21 02:10 103 H 30 H 100/66 96 03/30/21 02:00 103 H 28 H 102/63 96 03/30/21 01:50 104 H 28 H 102/63 96 03/30/21 01:40 105 H 29 H 102/63 96 03/30/21 01:30 108 H 28 H 109/61 96 03/30/21 01:20 110 H 27 H 109/61 96 03/30/21 01:10 113 H 27 H 109/61 95 03/30/21 01:00 98.6 F 114 H 28 H 108/75 95 03/30/21 00:52 125 H 19 114/73 95 03/30/21 00:50 118 H 27 H 108/75 95 03/30/21 00:05 121 H 27 H 03/30/21 00:00 124 H 25 H 94/74 95 03/29/21 23:24 146 H 26 H 03/29/21 23:00 147 H 32 H 160/100 92 L 03/29/21 22:30 146 H 20 179/109 94 L 03/29/21 22:00 156 H 23 191/98 96 03/29/21 21:50 118 H 26 H 155/100 97 03/29/21 21:35 117 H 25 H 154/101 94 L 03/29/21 21:20 120 H 25 H 138/107 95 03/29/21 21:05 115 H 27 H 147/83 97 03/29/21 20:50 116 H 30 H 131/96 100 03/29/21 20:48 97.5 F L 115 H 30 H 131/96 97 03/29/21 20:47 30 H Intake and Output 03/29/21 03/30/21 03/30/21 22:59 06:59 14:59 Intake Total 991.025 360.51 Output Total 1720 210 Balance -728.975 150.51 Intake: IV 960 360 Sodium Chloride 0.9% 1, 960 360 000 ml @ 120 mls/hr IV . Q8H20M [facility] Rx#:[id number] Intake, IV Titration 31.025 0.51 Amount propofoL 1,000 mg In 31.025 0.51 Empty Bag 1 bag @ Titrate IV .Q0M [facility] Rx#: [id number] Output: Urine 1720 210 Other: Voiding Method Indwelling Catheter Indwelling Catheter Weight 108.862 kg 102 kg On examination patient is on sedation at this time with propofol 50 g. Patient is intubated, sedated. Patient's pupils are very small about 3 mm, minimally reacting bilaterally. Oculocephalics are absent, corneals are absent. Patient is intubated, face cannot be assessed. Tongue, hearing palate cannot be assessed. Patient does breathe over the ventilator. He does have a cough and gag. Patient slightly postures on the right, but moves the left arm slightly more purposefully for pain. Stimuli. Patient moves both feet to painful stimuli equally with withdrawal. Reflexes are very diminished and plantars are probably upgoing bilaterally. Tone is equal. Bulk of muscles is normal. No obvious seizure activity noted. Cerebellar functions and gait cannot be asses sed. Gait cannot be assessed. Results - Laboratory Findings CBC and BMP: 03/30/21 02:02 03/30/21 02:02 Abnormal Lab Findings: Abnormal Labs 03/29/21 03/29/21 03/29/21 20:48 20:48 20:48 WBC RBC 2.65 L Hgb 8.3 L Hct 25.1 L RDW 17.7 H Plt Count 696 H Neutrophils # Lymphocytes # APTT ABG pH ABG pCO2 ABG pO2 ABG HCO3 ABG Total CO2 ABG O2 Saturation Chloride 108 H Creatinine 1.45 H Glucose 159 H POC Glucose (mg/dL) 179 H Total Protein 5.8 L Albumin 3.0 L U Marijuana (THC) Screen 03/29/21 03/29/21 03/29/21 22:00 22:04 23:24 WBC RBC Hgb Hct RDW Plt Count Neutrophils # Lymphocytes # APTT 19.9 L ABG pH 7.28 L ABG pCO2 55 H ABG pO2 114 H ABG HCO3 26 H ABG Total CO2 28 H ABG O2 Saturation 97.3 H Chloride Creatinine Glucose POC Glucose (mg/dL) Total Protein Albumin U Marijuana (THC) Screen Detected H 03/30/21 03/30/21 03/30/21 00:45 02:02 02:02 WBC 10.7 H RBC 2.53 L Hgb 7.9 L Hct 24.3 L RDW 17.2 H Plt Count 667 H Neutrophils # 9.6 H Lymphocytes # 0.6 L APTT ABG pH ABG pCO2 ABG pO2 ABG HCO3 ABG Total CO2 ABG O2 Saturation Chloride 108 H Creatinine 1.28 H Glucose 203 H POC Glucose (mg/dL) 251 H Total Protein 5.7 L Albumin 2.9 L U Marijuana (THC) Screen 03/30/21 06:08 WBC RBC Hgb Hct RDW Plt Count Neutrophils # Lymphocytes # APTT ABG pH ABG pCO2 ABG pO2 166 H ABG HCO3 ABG Total CO2 27 H ABG O2 Saturation 99.0 H Chloride Creatinine Glucose POC Glucose (mg/dL) Total Protein Albumin U Marijuana (THC) Screen Assessment and Plan Assessment: * 70-year-old male, found unresponsive at home. Exact cause uncertain, rule out seizure with postictal state, rule out CVA, rule out toxic metabolic encephalopathy. Patient's temperature and white cells are normal with no evidence of infection/encephalitis. Patient's examination was limited due to being on sedation with propofol 50 g. Patient does move all 4 extremities, although right arm slightly less as compared to the left. Patient recently admitted to the hospital for GI bleed. * Hypertension * Hyperlipidemia COPD * History of splenectomy * Marijuana use Plan: * Patient undergoing repeat computed tomography scan of the head * EEG * Further management based upon above test results. Addendum: Computed tomography scan of the head revealed a massive stroke involving the left hemispheric region in the left MCA and ERIC vascular territory, with mild subfalcine herniation measuring 0.3 cm.. No hemorrhagic conversion. EEG revealed background slowing of moderate to severe degree, suggestive of toxic metabolic encephalopathy, with additional focal slowing involving the left frontal parietal region suggestive of focal cortical neuronal dysfunction. Discussed with Dr. Holman, and family in detail. Long-term prognosis appears poor based upon the size of the stroke. Mannitol has been started. Family making decision to transfer to higher level of care versus comfort care.
[2021-03-30] MEDS ORDERED: ATROPINE OPHTH SOLN 1% 5ML BTL SUBLINGUAL PRN (16:26)
[2021-03-30] MEDS ORDERED: MORPHINE SULFATE 2 MG/ML SYRINGE IV PRN (16:26)
[2021-03-30] MEDS ORDERED: LORazepam 2 MG/ML INJ IV PRN (16:26)
[2021-03-30] MEDS ORDERED: propofoL 100 ML IV ONE (16:35)
[2021-03-30] MEDS ORDERED: SCOPOLAMINE 1.5MG/72HR PATCH TRANSDERM SCH (17:00)
[2021-03-30] MEDS: MORPHINE SULFATE 4 MG/ML SYRINGE IV PRN ×2 (17:06→17:50)
[2021-03-30] MEDS: MORPHINE SULFATE (100 MG/2 ML) 100 MG in SODIUM CHLORIDE 0.9% 100 ML IV SCH ×2 (17:11→19:03)
[2021-03-30] MEDS ORDERED: LORazepam 2 MG/ML INJ IV STA (17:53)
[2021-03-30] MEDS ORDERED: LORazepam 2 MG/ML INJ ONE (17:59)
[2021-03-30 18:05] VITALS: BP 126/83
[2021-03-30 19:01] VITALS: PULSE 103; RESP 9
[2021-03-30] MEDS ORDERED: MANNITOL 20% IVPB SCH (20:30)
--- NOTE | 2021-03-30 20:37 | P.HPIM ---
History of Present Illness H&P Date: 03/30/21 Chief Complaint: Altered mental status Patient is a 70-year-old male with a known history of hypertension, hyperlipidemia COPD, history of prostate cancer, previous history of smoking and current marijuana use was brought to the hospital by EMS due to altered mental status. Patient was unable to provide any history. Was given IV Narcan without any change. Code stroke was paged at around 8 PM. ABG showed pH of 7.28, PCO2 55 and PO2 114 and FiO2 100%. BNP 47. UDS was positive for marijuana. Patient went into hypercapnic respiratory failure and also found to have prolonged QT. Patient was intubated in the ER. Patient was recently admitted to the hospital due to rectal bleed. Patient underwent EGD and colonoscopy and status post small polypectomy. Patient had CT of the abdomen pelvis due to fever and found to have acute diverticulitis. Patient was started on IV antibiotics and transition to oral antibiotics and was discharged home. EKG showed normal sinus rhythm, sinus tachycardia with QT prolongation. Appears similar to previous on 03/24/2021 CT head showed no acute process. CT angiogram showed mild plaque formation of the carotid artery bifurcation however no hemodynamic stenosis. Chest x-ray showed diffuse infiltrates new compared to old exam. Patient was admitted to intensive care unit. Laboratory data showed WBC 10.4 hemoglobin 8.3 platelets 696 Sodium 141 potassium 3.5 chloride 108 BUN 9 and creatinine 1.45 hospitality 292 Magnesium 1.7 AST ALT alk phos within normal limits and ammonia level 13 proBNP 407 UDS is positive for marijuana COVID-19 and influenza PCR negative. Serum alcohol negative. Review of Systems Complete review of systems could not be obtained from the patient. Past Medical History Past Medical History: Cancer, COPD, Hyperlipidemia, Hypertension Additional Past Medical History / Comment(s): prostate cancer History of Any Multi-Drug Resistant Organisms: None Reported Past Surgical History: Heart Catheterization, Hernia Repair Additional Past Surgical History / Comment(s): radiation on prostate, spleenectomy, unguinal blateral Past Anesthesia/Blood Transfusion Reactions: No Reported Reaction Past Psychological History: No Psychological Hx Reported Smoking Status: Former smoker Past Alcohol Use History: Occasional Past Drug Use History: Marijuana Additional Drug Use History / Comment(s): CURRENT MARIJUANA USE - Past Family History Father Family Medical History: Diabetes Mellitus Medications and Allergies Home Medications Medication Instructions Recorded Confirmed Type Albuterol Nebulized [Ventolin 2.5 mg INHALATION RT-BID 03/17/19 03/29/21 History Nebulized] Budesonide/Formoterol Fumarate 2 puff INHALATION RT-BID 03/17/19 03/29/21 History [Symbicort 160-4.5 Mcg Inhaler] Calcium Carbonate [Calcium] 600 mg PO DAILY 03/17/19 03/29/21 History Cholecalciferol [Vitamin D3 (25 1,000 unit PO DAILY 03/17/19 03/29/21 History Mcg = 1000 Iu)] Multivitamins, Thera [Multivitamin 1 tab PO DAILY 03/17/19 03/29/21 History (formulary)] Hiram-3 Fatty Acids/Fish Oil [Fish 1 cap PO DAILY 03/17/19 03/29/21 History Oil 1,000 mg Softgel] Atorvastatin [Lipitor] 20 mg PO HS 03/24/21 03/29/21 History amLODIPine [Norvasc] 10 mg PO DAILY 03/24/21 03/29/21 History calcium polycarbophiL [Fibercon] 625 mg PO DAILY 03/24/21 03/29/21 History Acetaminophen Tab [Tylenol] 650 mg PO Q6HR PRN tab 03/28/21 03/29/21 Rx Cefuroxime Axetil [Ceftin] 500 mg PO BID 10 Days #20 tab 03/28/21 03/29/21 Rx Pantoprazole Sodium [Protonix] 40 mg PO DAILY #30 tablet. 03/28/21 03/29/21 Rx metroNIDAZOLE [Flagyl] 500 mg PO Q8HR 10 Days #30 tab 03/28/21 03/29/21 Rx Allergies Allergy/AdvReac Type Severity Reaction Status Date / Time No Known Allergies Allergy Verified 03/29/21 21:28 Physical Exam Vitals: Vital Signs Temp Pulse Resp BP Pulse Ox 03/30/21 10:00 80 17 106/70 98 03/30/21 09:30 78 18 93/64 99 03/30/21 09:00 81 20 91/63 97 03/30/21 08:30 85 20 91/60 97 03/30/21 08:00 98.4 F 85 19 100/70 97 03/30/21 07:30 90 24 95/64 95 03/30/21 07:00 81 9 L 98/67 97 03/30/21 06:30 84 23 94/65 97 03/30/21 06:00 83 9 L 92/63 99 03/30/21 05:30 85 24 92/64 99 03/30/21 05:00 86 21 94/66 98 03/30/21 04:30 87 25 H 101/66 99 03/30/21 04:00 98.8 F 89 22 93/64 97 03/30/21 03:30 94 24 94/67 98 03/30/21 03:00 96 27 H 99/66 97 03/30/21 02:50 97 26 H 99/66 97 03/30/21 02:40 98 26 H 99/66 97 03/30/21 02:30 99 25 H 100/66 96 03/30/21 02:20 101 H 23 100/66 97 03/30/21 02:10 103 H 30 H 100/66 96 03/30/21 02:00 103 H 28 H 102/63 96 03/30/21 01:50 104 H 28 H 102/63 96 03/30/21 01:40 105 H 29 H 102/63 96 03/30/21 01:30 108 H 28 H 109/61 96 03/30/21 01:20 110 H 27 H 109/61 96 03/30/21 01:10 113 H 27 H 109/61 95 03/30/21 01:00 98.6 F 114 H 28 H 108/75 95 03/30/21 00:52 125 H 19 114/73 95 03/30/21 00:50 118 H 27 H 108/75 95 03/30/21 00:05 121 H 27 H 03/30/21 00:00 124 H 25 H 94/74 95 03/29/21 23:24 146 H 26 H 03/29/21 23:00 147 H 32 H 160/100 92 L 03/29/21 22:30 146 H 20 179/109 94 L 03/29/21 22:00 156 H 23 191/98 96 03/29/21 21:50 118 H 26 H 155/100 97 03/29/21 21:35 117 H 25 H 154/101 94 L 03/29/21 21:20 120 H 25 H 138/107 95 03/29/21 21:05 115 H 27 H 147/83 97 03/29/21 20:50 116 H 30 H 131/96 100 03/29/21 20:48 97.5 F L 115 H 30 H 131/96 97 03/29/21 20:47 30 H Intake and Output 03/29/21 03/30/21 03/30/21 22:59 06:59 14:59 Intake Total 991.025 460.47 Output Total 1720 210 Balance -728.975 250.47 Intake: IV 960 360 Sodium Chloride 0.9% 1, 960 360 000 ml @ 120 mls/hr IV . Q8H20M ISHAN Rx#:[id number] Intake, IV Titration 31.025 100.47 Amount propofoL 1,000 mg In 31.025 100.47 Empty Bag 1 bag @ Titrate IV .Q0M ISHAN Rx#: [id number] Output: Urine 1720 210 Other: Voiding Method Indwelling Catheter Indwelling Catheter Weight 108.862 kg 102 kg PHYSICAL EXAMINATION: Patient is lying in the bed Currently mechanical ventilator. Sedated... HEENT: Normocephalic. Neck is supple. Pupils sluggishly reactive. Nostrils clear. Neck reveals no JVD, carotid bruits, or thyromegaly. CHEST EXAMINATION: Trachea is central. Symmetrical expansion.Bibasilar coarse breath sounds. No wheezing. CARDIAC: Normal S1, S2 with no gallops. No murmurs ABDOMEN: Soft. Bowel sounds normal. No organomegaly. No abdominal bruits. Extremities: reveal no edema. No clubbing or cyanosis Neurologically sedated and on mechanical vent Skin: No rash or skin lesions. Psychiatric: could not be assesed Musculoskeletal: No joint swelling or deformity. Results CBC & Chem 7: 03/30/21 02:02 03/30/21 02:02 Labs: Abnormal Lab Results - Last 24 Hours (Table) 03/29/21 03/29/21 03/29/21 Range/Units 20:48 20:48 20:48 WBC (3.8-10.6) k/uL RBC 2.65 L (4.30-5.90) m/uL Hgb 8.3 L (13.0-17.5) gm/dL Hct 25.1 L (39.0-53.0) % RDW 17.7 H (11.5-15.5) % Plt Count 696 H (150-450) k/uL Neutrophils # (1.3-7.7) k/uL Lymphocytes # (1.0-4.8) k/uL APTT (22.0-30.0) sec ABG pH (7.35-7.45) ABG pCO2 (35-45) mmHg ABG pO2 (83-108) mmHg ABG HCO3 (21-25) mmol/L ABG Total CO2 (19-24) mmol/L ABG O2 Saturation (94-97) % Chloride 108 H (98-107) mmol/L Creatinine 1.45 H (0.66-1.25) mg/dL Glucose 159 H (74-99) mg/dL POC Glucose (mg/dL) 179 H (75-99) mg/dL Total Protein 5.8 L (6.3-8.2) g/dL Albumin 3.0 L (3.5-5.0) g/dL U Marijuana (THC) Screen (NotDetected) 03/29/21 03/29/21 03/29/21 Range/Units 22:00 22:04 23:24 WBC (3.8-10.6) k/uL RBC (4.30-5.90) m/uL Hgb (13.0-17.5) gm/dL Hct (39.0-53.0) % RDW (11.5-15.5) % Plt Count (150-450) k/uL Neutrophils # (1.3-7.7) k/uL Lymphocytes # (1.0-4.8) k/uL APTT 19.9 L (22.0-30.0) sec ABG pH 7.28 L (7.35-7.45) ABG pCO2 55 H (35-45) mmHg ABG pO2 114 H (83-108) mmHg ABG HCO3 26 H (21-25) mmol/L ABG Total CO2 28 H (19-24) mmol/L ABG O2 Saturation 97.3 H (94-97) % Chloride (98-107) mmol/L Creatinine (0.66-1.25) mg/dL Glucose (74-99) mg/dL POC Glucose (mg/dL) (75-99) mg/dL Total Protein (6.3-8.2) g/dL Albumin (3.5-5.0) g/dL U Marijuana (THC) Screen Detected H (NotDetected) 03/30/21 03/30/21 03/30/21 Range/Units 00:45 02:02 02:02 WBC 10.7 H (3.8-10.6) k/uL RBC 2.53 L (4.30-5.90) m/uL Hgb 7.9 L (13.0-17.5) gm/dL Hct 24.3 L (39.0-53.0) % RDW 17.2 H (11.5-15.5) % Plt Count 667 H (150-450) k/uL Neutrophils # 9.6 H (1.3-7.7) k/uL Lymphocytes # 0.6 L (1.0-4.8) k/uL APTT (22.0-30.0) sec ABG pH (7.35-7.45) ABG pCO2 (35-45) mmHg ABG pO2 (83-108) mmHg ABG HCO3 (21-25) mmol/L ABG Total CO2 (19-24) mmol/L ABG O2 Saturation (94-97) % Chloride 108 H (98-107) mmol/L Creatinine 1.28 H (0.66-1.25) mg/dL Glucose 203 H (74-99) mg/dL POC Glucose (mg/dL) 251 H (75-99) mg/dL Total Protein 5.7 L (6.3-8.2) g/dL Albumin 2.9 L (3.5-5.0) g/dL U Marijuana (THC) Screen (NotDetected) 03/30/21 Range/Units 06:08 WBC (3.8-10.6) k/uL RBC (4.30-5.90) m/uL Hgb (13.0-17.5) gm/dL Hct (39.0-53.0) % RDW (11.5-15.5) % Plt Count (150-450) k/uL Neutrophils # (1.3-7.7) k/uL Lymphocytes # (1.0-4.8) k/uL APTT (22.0-30.0) sec ABG pH (7.35-7.45) ABG pCO2 (35-45) mmHg ABG pO2 166 H (83-108) mmHg ABG HCO3 (21-25) mmol/L ABG Total CO2 27 H (19-24) mmol/L ABG O2 Saturation 99.0 H (94-97) % Chloride (98-107) mmol/L Creatinine (0.66-1.25) mg/dL Glucose (74-99) mg/dL POC Glucose (mg/dL) (75-99) mg/dL Total Protein (6.3-8.2) g/dL Albumin (3.5-5.0) g/dL U Marijuana (THC) Screen (NotDetected) Microbiology - Last 24 Hours (Table) 03/30/21 00:21 Sputum Culture - Preliminary Sputum Thrombosis Risk Factor Assmnt - DVT/VTE Prophylaxis DVT/VTE Prophylaxis: Pharmacologic Prophylaxis ordered - Choose All That Apply Any of the Below Risk Factors Present?: Yes Each Factor Represents 1 point: Abnormal pulmonary function (COPD), Medical pt on bed rest Other Risk Factors: Yes Each Risk Factor Represents 2 Points: Age 61-74 years Other congenital or acquired thrombophilia - If yes, enter type in comment: No Thrombosis Risk Factor Assessment Total Risk Factor Score: 4 Thrombosis Risk Factor Assessment Level: Moderate Risk Assessment and Plan Assessment: Acute hypercapnic respiratory failure. Currently mechanical ventilator. Altered mental status. Possible postictal versus rule out acute CVA. Rule out toxic metabolic encephalopathy. Possible bibasilar pneumonia Recent admission with a GI bleed and diverticulitis Anemia due to recent acute blood loss anemia. Hypertension Hyperlipidemia COPD Marijuana use Previous history of smoking Chronic QT prolongation. DVT prophylaxis. Plan: Patient is currently intubated and on mechanical ventilator. Patient was sedated due to erratic breathing. Continue with broad-spectrum IV antibiotics. Neurology and pulmonary was consulted. Repeat CT head was ordered and the EEG. Cardiology was consulted due to prolonged QT interval. Replace magnesium. Magnesium was 1.7 on admission. 2D echocardiogram was ordered. Continue supportive care and follow-up closely. Prognosis poor at this time. Time with Patient: Greater than 30
[2021-03-30] MEDS ORDERED: VANCOMYCIN 1,750 MG in SODIUM CHLORIDE 0.9% 500 ML 500 ML IVPB SCH (23:00)
--- NOTE | 2021-04-02 08:27 | EEG ---
ELECTROENCEPHALOGRAM REPORT DATE OF SERVICE: 03/30/2021 PREAMBLE: This is a 70-year-old male who was found unresponsive by a neighbor, unknown down time. The patient was intubated and brought to the ER. The patient has been on a ventilator with sedation, propofol 50 mcg. EEG FINDINGS: A 21 channel portable EEG recording in a patient utilizing 10/20 international system with referential and bipolar montages. The recording starts and continues with presence of low-voltage mixed frequencies in generalized delta, with some fast frequency activity in bihemispheric region. Intermittent appearance of some suppressed pattern was also seen. Superimposed left frontal parietal slowing was also seen as compared to the right side. A photic driving response was not seen. Different stages of sleep were not seen. No definitive epileptiform activity was seen. IMPRESSION: This is an abnormal EEG due to background slowing of moderate to severe degree. This is suggestive of generalized cerebral dysfunction as can be seen with toxic metabolic encephalopathy or from diffuse structural brain abnormality. Superimposed additional left frontal parietal slowing may suggest focal cortical neuronal dysfunction as well. No definitive epileptiform activity was seen. MMODL / IJN: [id number] /
== END 2021-03-30 23:20 | disposition expired | DRG 64 ==
LOC: EC 20:42 → 2SICU 23:00
PROVIDERS: ADMIT Hospitalist; ATTEND Hospitalist
PROC: 0BH17EZ Insertion of Endotracheal Airway into Trachea, Via Natural or Artificial Opening (ICD-10-PCS; principal; 2021-03-29)
PROC: 5A1935Z Respiratory Ventilation, Less than 24 Consecutive Hours (ICD-10-PCS; 2021-03-29)
DX: I63.9 Cerebral infarction, unspecified (principal); J96.02 Acute respiratory failure with hypercapnia; J18.9 Pneumonia, unspecified organism; J96.01 Acute respiratory failure with hypoxia; G93.5 Compression of brain; G92 Toxic encephalopathy; N17.9 Acute kidney failure, unspecified; J44.9 Chronic obstructive pulmonary disease, unspecified; E78.5 Hyperlipidemia, unspecified; Z85.46 Personal history of malignant neoplasm of prostate; Z20.822 Contact with and (suspected) exposure to COVID-19; Z87.891 Personal history of nicotine dependence; Z83.3 Family history of diabetes mellitus; Z90.81 Acquired absence of spleen; D50.0 Iron deficiency anemia secondary to blood loss (chronic); Z92.3 Personal history of irradiation; R29.713 NIHSS score 13; Z66 Do not resuscitate; Z51.5 Encounter for palliative care; I10 Essential (primary) hypertension; F41.1 Generalized anxiety disorder; I49.3 Ventricular premature depolarization; Z79.899 Other long term (current) drug therapy; F41.9 Anxiety disorder, unspecified; Z79.51 Long term (current) use of inhaled steroids
CPT/HCPCS: 36415; 36600; 70450; 70496; 70498; 71045; 80053; 80143; 80179; 80306; 80320; 82140; 82805; 83605; 83735; 83880; 83930; 84145; 84484; 85025; 85610; 85730; 87040; 87070; 87205; 87636; 93005; 94002; 94003; 95822; 96361; 96365; 96375; 99291